=== PATIENT | female | born 1990 | race Caucasian/White ===

== ENCOUNTER 2017-12-04 08:39 | Outpatient (CLI) | payer MEDICAID, SELFPAY ==
[2017-12-04 09:34] LABS: Glucose,1 Hr (Glucola) 134 mg/dL (80-140)
== END 2017-12-04 08:59 ==
PROVIDERS: PCP Family Medicine; Visit Provider Advanced Practice Midwife
DX: Z34.93 Encounter for supervision of normal pregnancy, unspecified, third trimester (principal)
CPT/HCPCS: 36415; 82950

== ENCOUNTER 2017-12-11 21:58 | Observation (INO) | payer MEDICAID, SELFPAY ==
[2017-12-11] MEDS: Acetaminophen 500 MG TAB 1000 MG PO (22:53)
[2017-12-11] MEDS: Ondansetron O.D.T. 4 MG TABEF PO (22:54)
[2017-12-12] MEDS: hydrOXYzine PAMOATE 25 MG CAP 75 MG PO (00:14)
== END 2017-12-12 00:16 | disposition home or self-care (01) ==
PROVIDERS: Admitting Provider Advanced Practice Midwife; PCP Family Medicine; Visit Provider Advanced Practice Midwife
DX: O60.03 Preterm labor without delivery, third trimester (principal); Z3A.31 31 weeks gestation of pregnancy
CPT/HCPCS: 59025; G0378

== ENCOUNTER 2017-12-14 18:31 | Outpatient (CLI) | payer MEDICAID, SELFPAY | END 2017-12-14 18:51 | PROVIDERS: PCP Family Medicine; Visit Provider Advanced Practice Midwife | DX: O60.03 Preterm labor without delivery, third trimester (principal); Z3A.31 31 weeks gestation of pregnancy | CPT/HCPCS: 59025 ==

== ENCOUNTER 2018-01-03 11:48 | Outpatient (REF) | payer MEDICAID, SELFPAY | END 2018-01-03 12:08 | LOC: LBN 11:48 | PROVIDERS: PCP Family Medicine; Visit Provider Internal Medicine | DX: J06.9 Acute upper respiratory infection, unspecified (principal) | CPT/HCPCS: 87070 ==

== ENCOUNTER 2018-01-07 11:04 | Observation (INO) | payer MEDICAID, SELFPAY ==
[2018-01-07 13:00] LABS: Bilirubin Negative (Negative); Blood Negative (Negative); Clarity Sl Cloudy; Glucose Negative (Negative); Ketones Negative (Negative); Leukocyte Esterase Moderate (Negative); Nitrite Negative (Negative); Specific Gravity 1.015 (1.005-1.025); pH 7.5 (5-8)
[2018-01-07 13:09] LABS: Bacteria Many HPF (Negative); C & S Indicated? No/Sq. Contamination; Casts Negative LPF (Negative); Crystals Negative HPF (Negative); Epithelial Cells Many HPF (Negative); Mucus Moderate (Negative); RBC 0-2 (0-2); WBC 20-50 HPF (0-5)
== END 2018-01-07 12:20 | disposition home or self-care (01) ==
PROVIDERS: Admitting Provider Nurse Practitioner; PCP Family Medicine; Visit Provider Nurse Practitioner
DX: O60.03 Preterm labor without delivery, third trimester (principal); Z3A.35 35 weeks gestation of pregnancy
CPT/HCPCS: 81003; 81015; G0378

== ENCOUNTER 2018-01-16 22:03 | Observation (INO) | payer MEDICAID, SELFPAY ==
[2018-01-16 22:38] LABS: Bilirubin Negative (Negative); Blood Negative (Negative); Clarity Clear; Glucose Negative (Negative); Ketones Negative (Negative); Leukocyte Esterase Small (Negative); Nitrite Negative (Negative); Specific Gravity 1.015 (1.005-1.025); Urobilinogen 0.2 EU/dL (Up TO 0.2)
[2018-01-16 23:06] LABS: Tricyclic Antidepressants Negative (Negative)
[2018-01-16 23:10] LABS: ROM Plus Negative
[2018-01-16 23:11] LABS: *AMPHETAMINES SCREEN URINE Negative (Negative); *BARBITURATES SCREEN URINE Negative (Negative); *BENZODIAZEPINES SCREEN URINE Negative (Negative); Cannabinoids THC Negative (Negative); Cocaine Screen,Urine Negative (Negative); METHADONE URINE SCREEN Negative (Negative); OPIATES URINE SCREEN Negative (Negative)
[2018-01-16 23:35] LABS: RBC Negative (0-2); WBC 0-2 HPF (0-5)
[2018-01-16 23:36] LABS: Bacteria Negative HPF (Negative); C & S Indicated? Yes; Casts Negative LPF (Negative); Crystals Negative HPF (Negative); Epithelial Cells Few HPF (Negative); Mucus Negative (Negative)
== END 2018-01-16 23:23 | disposition home or self-care (01) ==
LOC: OBS 22:10
PROVIDERS: Admitting Provider Nurse Practitioner; PCP Family Medicine; Visit Provider Nurse Practitioner
DX: O47.03 False labor before 37 completed weeks of gestation, third trimester (principal); Z3A.36 36 weeks gestation of pregnancy; O99.333 Smoking (tobacco) complicating pregnancy, third trimester; F17.210 Nicotine dependence, cigarettes, uncomplicated; O99.283 Endocrine, nutritional and metabolic diseases complicating pregnancy, third trimester; E03.9 Hypothyroidism, unspecified; O99.343 Other mental disorders complicating pregnancy, third trimester; F32.9 Major depressive disorder, single episode, unspecified; F43.10 Post-traumatic stress disorder, unspecified; F79 Unspecified intellectual disabilities
CPT/HCPCS: 80307; 84112; 81003; 81015; 82731; 87081; 87086; G0378

== ENCOUNTER 2018-01-17 15:51 | Observation (INO) | payer MEDICAID, SELFPAY | END 2018-01-17 16:55 | disposition home or self-care (01) | PROVIDERS: Admitting Provider Nurse Practitioner; PCP Family Medicine; Visit Provider Nurse Practitioner | DX: O47.03 False labor before 37 completed weeks of gestation, third trimester (principal); Z3A.36 36 weeks gestation of pregnancy | CPT/HCPCS: G0378 ==

== ENCOUNTER 2018-01-22 22:23 | Observation (INO) | payer MEDICAID, SELFPAY ==
[2018-01-22] MEDS: Lactated Ringers 1,000 ML 1000 ML IV (23:50)
[2018-01-23] MEDS: Lactated Ringers 1,000 ML 1000 ML IV (00:56)
== END 2018-01-23 02:07 | disposition home or self-care (01) ==
PROVIDERS: Admitting Provider Advanced Practice Midwife; PCP Family Medicine; Visit Provider Advanced Practice Midwife
DX: O47.1 False labor at or after 37 completed weeks of gestation (principal); O26.813 Pregnancy related exhaustion and fatigue, third trimester; E86.0 Dehydration; Z3A.37 37 weeks gestation of pregnancy; O99.343 Other mental disorders complicating pregnancy, third trimester; F79 Unspecified intellectual disabilities; F43.10 Post-traumatic stress disorder, unspecified; F32.9 Major depressive disorder, single episode, unspecified; Z63.79 Other stressful life events affecting family and household
CPT/HCPCS: G0378

== ENCOUNTER 2018-01-24 15:25 | Outpatient (REF) | payer MEDICAID, SELFPAY | END 2018-01-24 15:45 | LOC: LBN 15:25 | PROVIDERS: PCP Family Medicine; Visit Provider Nurse Practitioner | DX: Z34.93 Encounter for supervision of normal pregnancy, unspecified, third trimester (principal); Z36.85 Encounter for antenatal screening for Streptococcus B | CPT/HCPCS: 87081 ==

== ENCOUNTER 2018-01-24 20:39 | Observation (INO) | payer MEDICAID, SELFPAY ==
[2018-01-24 21:37] LABS: ROM Plus Negative
== END 2018-01-24 21:52 | disposition home or self-care (01) ==
LOC: OBS 21:06
PROVIDERS: Admitting Provider Advanced Practice Midwife; PCP Family Medicine; Visit Provider Advanced Practice Midwife
DX: O47.1 False labor at or after 37 completed weeks of gestation (principal); Z3A.37 37 weeks gestation of pregnancy; O99.343 Other mental disorders complicating pregnancy, third trimester; F79 Unspecified intellectual disabilities; F32.9 Major depressive disorder, single episode, unspecified; F43.10 Post-traumatic stress disorder, unspecified
CPT/HCPCS: 84112; 87081; G0378

== ENCOUNTER 2018-01-25 16:53 | Observation (INO) | payer MEDICAID, SELFPAY ==
[2018-01-25] MEDS: Zolpidem 5 MG TAB 10 MG PO (18:51)
== END 2018-01-25 19:00 | disposition home or self-care (01) ==
PROVIDERS: Admitting Provider Nurse Practitioner; PCP Family Medicine; Visit Provider Nurse Practitioner
DX: O47.1 False labor at or after 37 completed weeks of gestation (principal); Z3A.37 37 weeks gestation of pregnancy
CPT/HCPCS: G0378

== ENCOUNTER 2018-01-30 09:25 | Outpatient (CLI) | payer MEDICAID, SELFPAY | END 2018-01-30 09:45 | PROVIDERS: PCP Family Medicine; Visit Provider Advanced Practice Midwife | DX: R69 Illness, unspecified (principal) ==

== ENCOUNTER 2018-02-02 23:35 | Inpatient (IN) | payer MEDICAID, SELFPAY ==
[2018-02-03 00:42] LABS: HGB 11.7 g/dL (12.0-15.5); Mean Corp. HGB Concentration 33.4 g/dL (32.0-36.0); Mean Corpuscular Hemoglobin 30.9 pg (27.0-33.0); Mean Corpuscular Volume 92.3 fL (80-95); Mean Platelet Volume 11.5 fL (8.0-11.0); Platelet Count 369 x1000/uL (130-400); RBC 3.79 m/cumm (4.00-5.20); RBC Distribution Width 14.1 % (11.7-14.6); White Blood Cell Count 17.09 k/cumm (4.4-10.8)
[2018-02-03] MEDS: Hamamelis Leaf/Glycerin 100 EACH BOX PR (12:03)
--- NOTE | 2018-02-03 14:48 | PDOC.CMPRO ---
Care Management Progress Note OB RN Milly requested CM support with information regarding decision making for Piedad's baby's care. CM called Maryam Chen Orly's Guardian who reported Orly would make decisions for her baby until discharge at which point DCF would verify paperwork was in order for adoption and Adoptive parents would accept parental rights for decision making for the baby. CM relayed the former information to TONIA Atkins RN.
[2018-02-03] MEDS: Acetaminophen 325 MG TAB 650 MG PO ×2 (16:08→21:05)
[2018-02-03] MEDS: Ibuprofen 600 MG TAB PO ×2 (16:08→21:06)
[2018-02-04 07:14] LABS: HCT 33.9 % (36.0-46.0); HGB 10.8 g/dL (12.0-15.5); Mean Corp. HGB Concentration 31.9 g/dL (32.0-36.0); Mean Corpuscular Hemoglobin 30.6 pg (27.0-33.0); Mean Platelet Volume 11.6 fL (8.0-11.0); Platelet Count 283 x1000/uL (130-400); RBC 3.53 m/cumm (4.00-5.20); RBC Distribution Width 14.8 % (11.7-14.6)
[2018-02-04] MEDS: Ibuprofen 600 MG TAB PO (07:29)
[2018-02-04] MEDS: Docusate Sodium 100 MG CAP PO (07:30)
[2018-02-04] MEDS: Acetaminophen 325 MG TAB 650 MG PO ×2 (07:30→12:15)
[2018-02-04] MEDS: Levothyroxine 75 MCG TAB PO (09:38)
[2018-02-04] MEDS: Lidocaine 1% Pres-Free 5 ML VIAL IJ (11:03)
[2018-02-04] MEDS: ETONOGESTREL 68 MG IMPLANT SC (11:20)
== END 2018-02-04 18:00 | disposition home or self-care (01) | DRG 807 ==
PROVIDERS: Admitting Provider Nurse Practitioner; PCP Family Medicine; Visit Provider Nurse Practitioner
DX: O70.1 Second degree perineal laceration during delivery (principal); Z37.0 Single live birth; O99.334 Smoking (tobacco) complicating childbirth; Z3A.38 38 weeks gestation of pregnancy; O99.284 Endocrine, nutritional and metabolic diseases complicating childbirth; O99.344 Other mental disorders complicating childbirth; E03.9 Hypothyroidism, unspecified; F32.9 Major depressive disorder, single episode, unspecified
CPT/HCPCS: 36415; 85027; 86850; 86900; 86901; G0378; J3490

== ENCOUNTER 2018-07-10 17:25 | Emergency (ER) | payer MEDICAID, SELFPAY ==
[2018-07-10 17:38] VITALS: BP 105/45; PULSE 98; RESP 22; O2SAT 98
[2018-07-10] MEDS: Acetaminophen 500 MG TAB 1000 MG PO (17:42)
--- NOTE | 2018-07-10 17:45 | DI.RAD_ITS ---
SYMPTOM/DIAGNOSIS: DROPPED BED ON FOOT, PAIN RIGHT FOOT: Three views were obtained. No fracture is seen.
[2018-07-10] MEDS: Lidocaine 5% Patch 1 PATCH TP (17:51)
--- NOTE | 2018-07-10 18:02 | DI.VRAD_ITS ---
EXAM: XR Right Foot Complete, 3 or more Views EXAM DATE/TIME: 07/10/2018 5:31 PM CLINICAL HISTORY: 28 years old, female; Patient HX: Patient sts dropped metal plate on right foot. 2 hours ago, pain entire foot. Patient also states previous FX 3 years ago. TECHNIQUE: Imaging protocol: XR Right foot. Views: 3 or more views. COMPARISON: CR RIGHT ANKLE COMPLETE 10/01/2015 10:51 PM FINDINGS: Bones/joints: Osseous anatomic alignment is well preserved. No acutely displaced fracture or dislocation. Joint spaces are well preserved. Soft tissues: No significant soft tissue swelling. IMPRESSION: Negative for acute skeletal pathology. Dictated and Authenticated by: Lucas Fuentes MD. Ordering:CLARITA Amor MD
--- NOTE | 2018-07-10 18:16 | ED.GENADUL_ITS ---
Discharge Plan Disposition Patient Disposition: HOME Condition: Good Discharge Details Chief Complaint: Orthopedic Clinical Impression: Acute foot pain, Contusion Primary Care Provider: Ronda Velez ED Provider: [facility] Home Meds and New Rx's Prescriptions: New acetaminophen [Mapap Extra Strength] 500 MG tablet 1,000 mg PO Q6H 5 Days Qty: 60 RF: 0 lidocaine [Lidoderm] 1 PATCH patch 1 patch Topical Q24H Qty: 4 RF: 0 ibuprofen [Motrin IB] 200 MG tablet 600 mg PO Q6H 5 Days Qty: 60 RF: 0 No Action Nexplanon 68 mg implant 1 implant SBD ONCE RF: 0 riboflavin (vitamin B2) 100 mg tablet 100 mg PO DAILY Qty: 90 RF: 2 levothyroxine 75 mcg tablet 75 mcg PO DAILY Qty: 90 RF: 3 trazodone 50 mg tablet 25 mg PO QHS PRN (Reason: insomnia) Qty: 30 RF: 2 lansoprazole 30 mg capsule,delayed release(DR/EC) 30 mg PO DAILY Qty: 30 RF: 2 sertraline 100 mg tablet 100 mg PO DAILY Qty: 30 RF: 3 loratadine [Claritin] 10 mg tablet 10 mg PO DAILY MDD 1 tablet Qty: 30 RF: 11 topiramate [Topamax] 50 mg tablet 50 mg PO QHS Qty: 30 RF: 3 Discharge Instructions Instructions: Contusion in Adults (ED) Additional Instructions: Please take the Tylenol, Motrin, and Lidoderm patches as directed. Please use the postop boot and the crutches until you are reassessed. If you notice any worsening of your symptoms, or any new symptoms such as vomiting, diarrhea, fever, chills, shortness of breath, chest pain, numbness, weakness, or fainting , please return immediately to the emergency department for reevaluation. Please follow up with your primary care provider as soon as possible for reassessment and reevaluation. As always, it was a pleasure participating in your medical care today. Referrals: Cash Higuera [facility] [Emergency Nurse] - Discharge Data Discharge Date/Time-TO BE ENTERED AT DEPARTURE: 07/10/18 18:24 Medical Decision Making This is a pleasant 28-year-old female who presents today with pain in her right foot over the midfoot region. She dropped the bed frame on it earlier today. Exam demonstrates minimal swelling over the midfoot region, no evidence of osseous deformity. Neurovascularly intact. No signs of significant fracture on exam. Toes, ankle and delarosa are otherwise unremarkable. X-ray was ordered and demonstrates no acute process or fracture. I suspect a notable sprain or bruise. The patient has been given NSAIDs here in the Lidoderm patch and has notable improvement of her symptoms. Postop surgical shoe was given as well as crutches, and the patient is tolerated this well. Recommend continue rest, ice, and NSAID therapy. Recommend close follow-up with PCP. Discussed red flags which to return. I have extensively reviewed the treatment plan and discharge instructions with the patient and their family. I have addressed all patient concerns at this time. The patient and family was made aware of what symptoms to monitor for that would warrant a return to the emergency department. Discussed the plan with the patient and family, they demonstrate verbal understanding and agreement with our assessment and plan at this time. TECHNIQUE: Imaging protocol: XR Right foot. Views: 3 or more views. COMPARISON: CR RIGHT ANKLE COMPLETE 10/01/2015 10:51 PM FINDINGS: Bones/joints: Osseous anatomic alignment is well preserved. No acutely displaced fracture or dislocation. Joint spaces are well preserved. Soft tissues: No significant soft tissue swelling. IMPRESSION: Negative for acute skeletal pathology. Thank you for allowing us to participate in the care of your patient. Dictated and Authenticated by: Lucas Bautista MD HPI General Date/Time Provider Initiated Documentation: 07/10/18 17:26 . HPI Narrative: This is a 28-year-old female who presents with a chief complaint of right foot pain. Earlier today she states that she dropped a bed frame on her right foot. It was over the midfoot region. She has had notable pain with ambulation and movement since then. He denies any numbness tingling or weakness. She denies any pain in her ankle, delarosa, or knee. She denies any other complaints or modifying factors. She does admit to a previous injury in this point in the distant past but no other acute process. Related Data Home Medications Medication Instructions Recorded Confirmed levothyroxine 75 mcg tablet 75 mcg PO DAILY #90 tab 04/12/18 06/20/18 etonogestrel 68 mg subdermal 1 implant SBD ONCE 05/01/18 06/20/18 implant riboflavin (vitamin B2) 100 mg 100 mg PO DAILY #90 tab 05/01/18 06/20/18 tablet trazodone 50 mg tablet 25 mg PO QHS PRN #30 tab 05/12/18 06/20/18 lansoprazole 30 mg capsule,delayed 30 mg PO DAILY #30 tab-cap 05/28/18 06/20/18 release sertraline 100 mg tablet 100 mg PO DAILY #30 tab 05/31/18 06/20/18 loratadine 10 mg tablet 10 mg PO DAILY #30 tab MDD 1 tablet 06/28/18 topiramate 50 mg tablet 50 mg PO QHS #30 tab 07/01/18 acetaminophen [Mapap Extra 1,000 mg PO Q6H 5 Days #60 tab 07/10/18 Strength] ibuprofen [Motrin Ib] 600 mg PO Q6H 5 Days #60 tab 07/10/18 lidocaine [Lidoderm] 1 patch TOPICAL Q24H #4 patch 07/10/18 Previous Rx's Medication Instructions Recorded levothyroxine 75 mcg tablet 75 mcg PO DAILY #90 tab 04/12/18 riboflavin (vitamin B2) 100 mg 100 mg PO DAILY #90 tab 05/01/18 tablet trazodone 50 mg tablet 25 mg PO QHS PRN #30 tab 05/12/18 lansoprazole 30 mg capsule,delayed 30 mg PO DAILY #30 tab-cap 05/28/18 release sertraline 100 mg tablet 100 mg PO DAILY #30 tab 05/31/18 loratadine 10 mg tablet 10 mg PO DAILY #30 tab MDD 1 tablet 06/28/18 topiramate 50 mg tablet 50 mg PO QHS #30 tab 07/01/18 acetaminophen [Mapap Extra 1,000 mg PO Q6H 5 Days #60 tab 07/10/18 Strength] ibuprofen [Motrin Ib] 600 mg PO Q6H 5 Days #60 tab 07/10/18 lidocaine [Lidoderm] 1 patch TOPICAL Q24H #4 patch 07/10/18 Allergies Allergy/AdvReac Type Severity Reaction Status Date / Time shellfish derived Allergy Severe Throat Unverified 06/20/18 08:43 closes up latex Allergy Intermediate Skin Rash Unverified 06/20/18 08:43 Penicillins Allergy Intermediate UTICARIA, Unverified 06/20/18 08:43 ROOM SPINS amoxicillin trihydrate Allergy Unknown unknown Unverified 06/20/18 08:43 [From Augmentin] metronidazole [From Flagyl] Allergy Unknown HIVES- RED Unverified 06/20/18 08:43 BLOTCHES sumatriptan succinate AdvReac Severe chest pain Unverified 06/20/18 08:43 [From Imitrex] tuna fish Allergy Unknown throat Uncoded 06/20/18 08:43 closes up Review of Systems Review of Systems All systems reviewed & are unremarkable except as noted in HPI and below PFSH Surgical History wisdom teeth removed. Family History Mother Depression Asthma Father Diabetes Asthma Brother Depression Asthma Grandfather No problems noted. Grandfather No problems noted. Grandmother No problems noted. Grandmother No problems noted. Daughter No problems noted. Social History Smoking/Tobacco Use Status: Current every day Tobacco Type: cigarettes Alcohol Intake: never Drug use: Never Substance use type: marijuana Household members: significant other Number of Children: 2 Do you feel safe in your relationship?: Yes History History 5 Para 1 Hx # Term Pregnancies 1 Multiple births 0 Hx # Pregnancies 0 Ectopic pregnancies 0 AB induced 0 Hx Number of Living Children 1 AB spontaneous 4 Past Pregnancies Del. Date GA/Weeks # Outcome Route Wgt Sex Labor Lgth Anesthesia Location Prov Complic 03/05/15 39 Successful vaginal 3.005 kg Female 10 hrs regional [facility] Exam Narrative Exam Narrative: 1.Const: Well-nourished, Well-developed, appearing stated age 2.Eyes: PERRL, no conjunctival injection, and symmetrical lids. 3.ENT: Atraumatic external nose and ears. Moist MM. Neck: Symmetric, trachea midline, No thyromegaly. 4.CVS: +S1/S2, No murmurs or gallops. Peripheral pulses 2+ and equal in all ex tremities. Brisk capillary refill in all extremities. 5.RESP: Unlabored respiratory effort. Clear to auscultation bilaterally. No wheezes rales or rhonchi 6.GI: Soft, Nontender/Nondistended, No hepatosplenomegaly. No guarding or rebound. 7.MSK: Normocephalic/Atraumatic, Extremities w/o deformity. No cyanosis or clubbing, patient has +5 out of 5 strength in the lower extremities in dorsifl exion and plantarflexion, knee flexion and extension, hip flexion and extension. There is +2 over 2 dorsalis pedis pulses bilaterally. There is normal sensation to the skin with light touch at the foot knee and hip. Mild reproducible tenderness over the midfoot region. No evidence of significant bruising. Normal swelling over the anterior midfoot region. No deformity. Capillary refill is brisk, dorsalis pedis and posterior tibial pulse +2 bilaterally. 8.Skin: Warm, Dry. No rashes or lesions. 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 Sensation grossly intact, no focal neurologic deficits. 10.Psych: (AAO) x3. Appropriate mood and affect
== END 2018-07-10 18:24 | disposition home or self-care (01) ==
PROVIDERS: Emergency Provider Student in an Organized Health Care Education/Training Program; PCP Family Medicine
DX: S90.31XA Contusion of right foot, initial encounter (principal); W22.8XXA Striking against or struck by other objects, initial encounter
CPT/HCPCS: 99283; 73630; E0114

== ENCOUNTER 2018-09-21 21:19 | Emergency (ER) | payer MEDICAID, SELFPAY ==
[2018-09-21 21:23] VITALS: BP 109/75; PULSE 90; RESP 16; TEMP 37.7; O2SAT 98
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
--- NOTE | 2018-09-21 21:31 | DI.RAD_ITS ---
SYMPTOM/DIAGNOSIS: S/P PUNCHED WALL, R/O ACUTE FRACTURE. RIGHT HAND: Three views. No acute fracture or dislocation is present.
--- NOTE | 2018-09-21 22:09 | DI.RAD_ITS ---
SYMPTOM/DIAGNOSIS: S/P PUNCHED A WALL, R/O ACUTE FRACTURE RIGHT WRIST: Three views. No acute fracture or dislocation is present.
[2018-09-21] MEDS: Ibuprofen 600 MG TAB PO (22:25)
--- NOTE | 2018-09-21 22:27 | DI.VRAD_ITS ---
EXAM: XR Right Wrist EXAM DATE/TIME: 09/21/2018 9:32 PM CLINICAL HISTORY: 28 years old, female; Other: Pain, punched wall TECHNIQUE: Imaging protocol: XR Right wrist. Views: 3 or more views. COMPARISON: No relevant prior studies available. FINDINGS: Bones/joints: Normal. Soft tissues: Normal. IMPRESSION: No acute findings. Dictated and Authenticated by: Germán John MD. Ordering:FLO Byrd MD
--- NOTE | 2018-09-21 22:28 | DI.VRAD_ITS ---
EXAM: XR Right Hand EXAM DATE/TIME: 09/21/2018 9:32 PM CLINICAL HISTORY: 28 years old, female; Other: Pain, punched wall TECHNIQUE: Imaging protocol: XR Right hand. Views: 3 or more views. COMPARISON: No relevant prior studies available. FINDINGS: Bones/joints: Normal. Soft tissues: Normal. IMPRESSION: No acute findings. Dictated and Authenticated by: Germán John MD. Ordering:FLO Byrd MD
== END 2018-09-21 23:10 | disposition home or self-care (01) ==
PROVIDERS: Emergency Provider Physician Assistant; PCP Nurse Practitioner Adult Health
DX: S60.211A Contusion of right wrist, initial encounter (principal); S60.221A Contusion of right hand, initial encounter; W22.09XA Striking against other stationary object, initial encounter
CPT/HCPCS: 99284; 73110; 73130; 99282; L3908

== ENCOUNTER 2018-11-11 21:30 | Emergency (ER) | payer MEDICAID, SELFPAY ==
[2018-11-11 21:34] VITALS: BP 114/69; PULSE 117; RESP 16; TEMP 36.5; O2SAT 96
[2018-11-11 22:28] VITALS: RESP 18
[2018-11-11] MEDS: Albuterol 2.5 MG/3 ML INH SOLN VIAL UPD (22:38)
[2018-11-11] MEDS: Acetaminophen 325 MG TAB 650 MG PO (22:38)
[2018-11-11] MEDS: Ibuprofen 600 MG TAB PO (22:38)
[2018-11-11 22:49] VITALS: O2SAT 99
[2018-11-11 22:50] VITALS: O2SAT 100
--- NOTE | 2018-11-11 22:55 | DI.RAD_ITS ---
EXAM: XR CHEST 2V PA LATERAL CLINICAL HISTORY: DIZZINESS, COUGH,FEVER TECHNIQUE: 2D digital imaging was performed. COMPARISON: Comparison is made with prior study of 03/31/2017. FINDINGS: LUNGS: Clear. No pleural abnormality seen. HEART: Normal. MEDIASTINUM: Normal. OTHER FINDINGS:Normal. IMPRESSION: No acute pulmonary findings.
--- NOTE | 2018-11-11 23:05 | DI.VRAD_ITS ---
EXAM: XR Chest, 2 Views EXAM DATE/TIME: 11/11/2018 10:21 PM CLINICAL HISTORY: 28 years old, female; Cough and fever; Cough with hemorrhage; Patient HX: Fever, cough dizzy TECHNIQUE: Imaging protocol: XR of the chest Views: 2 views. COMPARISON: CR CHEST 2 VIEWS PA,LAT 03/31/2017 10:51 PM FINDINGS: Lungs: Unremarkable. No consolidation. Pleural space: Unremarkable. No evidence of pneumothorax. Heart/Mediastinum: Unremarkable. Heart size within normal limits for technique. Bones/joints: Unremarkable. IMPRESSION: No acute findings. Dictated and Authenticated by: Adria Moreno MD. Ordering:VIANNEY Tan MD
--- NOTE | 2018-11-11 23:08 | W.ED.GENAD ---
Discharge Plan Disposition Patient Disposition: HOME Discharge Details Chief Complaint: GenMedical Clinical Impression: Asthma exacerbation, URI (upper respiratory infection), Smoker Primary Care Provider: Johana Vang ED Provider: Dominick Kenyon Home Meds and New Rx's Prescriptions: New albuterol sulfate 90 mcg/actuation HFA aerosol inhaler 2 puff IH Q6H PRN (Reason: shortness of breath or wheezing) Qty: 8.5 RF: 0 Continued Nexplanon 68 mg implant 1 implant SBD ONCE RF: 0 levothyroxine 75 mcg tablet 75 mcg PO DAILY Qty: 90 RF: 3 lansoprazole 30 mg capsule,delayed release(DR/EC) 30 mg PO DAILY Qty: 30 RF: 2 No Action prednisone 10 mg tablet See Rx Instructions PO DAILY Qty: 21 RF: 0 topiramate [Topamax] 50 mg tablet 50 mg PO QHS Qty: 30 RF: 3 Discharge Instructions Instructions: Asthma (ED), How to Stop Smoking (ED), Upper Respiratory Infection (ED) Additional Instructions: Please drink plenty of fluids to stay hydrated. Rest over the next few days. Use albuterol inhaler, 2 puffs inhaled every 4-6 hours as needed for shortness of breath or wheeze. Please take ibuprofen over the counter. Take 600mg by mouth every 6 hours as needed for fever/pain. Please stop smoking. Please contact your primary care physician to arrange follow-up. Return to the ER for any worsening or new concerning symptoms. Referrals: Johana Vang, GEOPHYSICAL ENGINEER [Primary Care Provider] - Discharge Data Discharge Date/Time-TO BE ENTERED AT DEPARTURE: 11/11/18 23:23 Medical Decision Making 23:00 --28-year-old female smoker with asthma here with sinus congestion and cough over the past 2 to 3 days. Patient mildly tachycardic on arrival. Patient has wheeze bilateral lower lungs. Patient saturating well in no respiratory distress. Patient was given Tylenol and ibuprofen. She was given albuterol neb for her wheeze. chest x-ray reviewed and interpreted by radiology: No acute findings Patient was reassessed and wheeze resolved after neb treatment. Heart rate improved. Suspect viral URI with mild asthma exacerbation. Patient was encouraged to maintain adequate hydration and take NSAIDs for fever and discomfort. She was encouraged to follow-up with her primary care physician should symptoms not improve over the next few days. Smoking cessation counseling was provided. I spent greater than 5 minutes discussing smoking cessation with the patient. She seems minimally motivated to stop smoking. Usual and customary discharge instructions were provided. HPI General Mode of arrival: ambulatory. Date/Time Provider Initiated Documentation: 11/11/18 21:47. Limitations to Documentation: no limitations. Information obtained by: patient. HPI Narrative: 28-year-old female smoker with asthma here with chief complaint of cough. She states that she has had cough over the past 2 to 3 days. Cough is moderate with no modifiers. She has associated sinus congestion and sinus discomfort. Cough is intermittently productive. No associated fever. Generally not feeling well. Patient does have some associated shortness of breath with wheezing. Related Data Home Medications Medication Instructions Recorded Confirmed levothyroxine 75 mcg tablet 75 mcg PO DAILY #90 tab 04/12/18 11/13/18 etonogestrel 68 mg subdermal 1 implant SBD ONCE 05/01/18 11/13/18 implant lansoprazole 30 mg capsule,delayed 30 mg PO DAILY #30 tab-cap 05/28/18 11/13/18 release albuterol sulfate 2 puff IH Q6H PRN #8.5 gm 11/11/18 11/13/18 prednisone 10 mg tablet See Rx Instructions PO DAILY #21 11/13/18 11/13/18 tab-cap topiramate 50 mg tablet 50 mg PO QHS #30 tab 11/13/18 Previous Rx's Medication Instructions Recorded levothyroxine 75 mcg tablet 75 mcg PO DAILY #90 tab 04/12/18 lansoprazole 30 mg capsule,delayed 30 mg PO DAILY #30 tab-cap 05/28/18 release albuterol sulfate 2 puff IH Q6H PRN #8.5 gm 11/11/18 prednisone 10 mg tablet See Rx Instructions PO DAILY #21 11/13/18 tab-cap topiramate 50 mg tablet 50 mg PO QHS #30 tab 11/13/18 Allergies Allergy/AdvReac Type Severity Reaction Status Date / Time shellfish derived Allergy Severe Throat Unverified 11/11/18 21:40 closes up latex Allergy Intermediate Skin Rash Unverified 11/13/18 13:15 Penicillins Allergy Intermediate UTICARIA, Unverified 11/13/18 13:15 ROOM SPINS amoxicillin trihydrate Allergy Unknown unknown Unverified 11/13/18 13:15 [From Augmentin] metronidazole [From Flagyl] Allergy Unknown HIVES- RED Unverified 11/13/18 13:15 BLOTCHES sumatriptan succinate AdvReac Severe chest pain Unverified 11/13/18 13:15 [From Imitrex] tuna fish Allergy Unknown throat Uncoded 11/13/18 13:15 closes up B-2 Allergy Uncoded 11/13/18 13:15 General Stated Complaint: GenMedical HUY: 4 Review of Systems Review of Systems ROS Unobtainable: All systems reviewed & are unremarkable except as noted in HPI and below ENT Ears, Nose, Mouth, and Throat: Reports facial pain Respiratory Respiratory: Reports cough PFSH Medical History ADD (attention deficit disorder) (Chronic) Cognitive developmental delay GERD (gastroesophageal reflux disease) (Chronic) Hypothyroid (Chronic) Infestation by Sarcoptes scabiei (Inactive 07/15/14) Migraine (Chronic) Posttraumatic stress disorder (Chronic 08/18/11) Surgical History History of wisdom tooth extraction (Acute) Family History Mother Depression Asthma Father Diabetes Asthma Brother Depression Asthma Grandfather No problems noted. Grandfather No problems noted. Grandmother No problems noted. Grandmother No problems noted. Daughter No problems noted. Social History Smoking/Tobacco Use Status: Current every day Tobacco Type: cigarettes Alcohol Intake: never Drug use: Daily Substance use type: marijuana Details: No IV Drug Use Adopted: No Caregiver/Support person: No Foster care: No Household members: significant other Housing: apartment Number of Children: 2 Do you need help understanding health information?: Always Sexually active: Yes Do you think of yourself as: straight/heterosexual Current gender identity: female Do you feel safe at home: Yes Do you feel safe in your relationship?: Yes History History 5 Para 2 Hx # Term Pregnancies 1 Multiple births 0 Hx # Pregnancies 0 Ectopic pregnancies 0 AB induced 0 Hx Number of Living Children 1 AB spontaneous 4 Past Pregnancies Del. Date GA/Weeks # Outcome Route Wgt Sex Labor Lgth Anesthesia Location Prov [facility] 03/05/15 39 Successful vaginal 3.005 kg Female 10 hrs regional [facility] Exam Const General: cooperative and no acute distress [facility] General nose exam: nares normal Face and sinus: no erythema, no edema and sinus tenderness maxillary Mouth: moist mucous membranes Throat: posterior oropharynx normal Eyes Conjunctivae: normal conjunctivae Sclera: normal sclerae Neck Neck: trachea midline and supple Resp Effort & Inspection: able to speak in complete sentences Auscultation: no rales, no rhonchi and wheezes expiratory wheezes Cardio Jugular venous pressure: no JVD Rate: tachycardic Rhythm: regular rhythm Heart Sounds: S1 normal, S2 normal, no gallops, no murmurs and no rubs GI Palpation: soft, not firm, no guarding, no masses, not rigid and nontender Skin General skin exam: no rashes or lesions noted Neuro General: alert, awake and tone normal Extrem General: no edema Course Vital Signs Vital signs: Vital Signs Temperature 36.5 C 11/11/18 21:34 Pulse 117 H 11/11/18 21:34 Respiratory Rate 16 11/11/18 21:34 Blood Pressure 114/69 11/11/18 21:34 Pulse Oximetry 96 11/11/18 21:34 Temperature 36.5 C 11/11/18 21:34 Temperature Source Temporal Artery Scan 11/11/18 21:34 Pulse 117 H 11/11/18 21:34 Respiratory Rate 18 11/11/18 22:28 Respiratory Effort 11/11/18 22:28 Respiratory Depth Normal 11/11/18 22:28 Respiratory Pattern Normal 11/11/18 22:28 Blood Pressure 114/69 11/11/18 21:34 Pulse Oximetry 96 11/11/18 21:34 Oxygen Delivery Method Room Air 11/11/18 21:34 Oxygen Flow Rate 0 11/11/18 21:34 Pain Level 6 11/11/18 21:34 Lab/Test Results Lab/Test Results: POC- Test(urine) Negative
[2018-11-11 23:22] VITALS: BP 114/69; PULSE 106; RESP 18; O2SAT 100
== END 2018-11-11 23:23 | disposition home or self-care (01) ==
PROVIDERS: Emergency Provider Student in an Organized Health Care Education/Training Program; PCP Nurse Practitioner Adult Health
DX: J45.901 Unspecified asthma with (acute) exacerbation (principal); J06.9 Acute upper respiratory infection, unspecified; F17.210 Nicotine dependence, cigarettes, uncomplicated
CPT/HCPCS: 81025; 94640; 99283; 99406; 71046; J7613

== ENCOUNTER 2018-12-12 20:07 | Emergency (ER) | payer MEDICAID, SELFPAY ==
[2018-12-12 20:11] VITALS: BP 127/64; PULSE 101; RESP 16; TEMP 36.6; O2SAT 97
[2018-12-12] MEDS: diazePAM 5 MG TAB PO (21:13)
--- NOTE | 2018-12-12 21:37 | DI.RAD_ITS ---
EXAM: XR LUMBAR SPINE COMPLETE INDICATION: pain. COMPARISON: No exams were available for comparison TECHNIQUE: 2D digital imaging was performed. FINDINGS: There is no evidence of fracture, spondylolysis or spondylolisthesis. The disc spaces are well main tained. There is no significant scoliosis. The SI joints are grossly intact. IMPRESSION: Negative lumbar spine.
[2018-12-12 21:40] LABS: Bilirubin Negative (Negative); Blood Negative (Negative); Clarity Clear (Clear); Glucose Negative (Negative); Ketones 80 mg/dL (Negative); Leukocyte Esterase Negative (Negative); Nitrite Negative (Negative); Specific Gravity >= 1.030 (1.005-1.025); Urobilinogen 0.2 EU/dL (Up TO 0.2); pH 5.5 (5-8)
[2018-12-12 21:42] LABS: ALT 10 U/L (14-59); AST 7 U/L (15-37); Albumin 3.8 g/dL (3.4-5.0); Alkaline Phosphatase 71 U/L (46-116); Anion Gap 12.6 mmol/L (3-11); BUN 7 mg/dL (7-18); Bilirubin, Total 0.3 mg/dL (0.2-1.0); CO2 22.4 mmol/L (21.0-32.0); CREATININE 0.73 mg/dL (0.55-1.02); Calcium 8.8 mg/dL (8.5-10.1); Chloride 106 mmol/L (98-107); Glucose 86 mg/dL (70-100); Potassium 3.7 mmol/L (3.5-5.1); Sodium 141 mmol/L (136-145); Total Protein 7.7 g/dL (6.4-8.2)
--- NOTE | 2018-12-12 21:50 | DI.VRAD_ITS ---
PROCEDURE INFORMATION: Exam: XR Lumbosacral Spine, 4 or 5 Views Exam date and time: 12/12/2018 8:53 PM Clinical history: 28 years old, female; Low back pain TECHNIQUE: Imaging protocol: XR of the lumbosacral spine, 4 or 5 views. COMPARISON: No relevant prior studies available. FINDINGS: Vertebrae: There are 5 nonrib-bearing lumbar type vertebra. No acute findings. Vertebral body heights are preserved. No spondylolisthesis or spondylolysis. There is borderline intervertebral disc height loss at L5-S1, intervertebral disc heights are otherwise preserved. Soft tissues: No focal abnormality, IMPRESSION: No acute finding. No significant hypertrophic degenerative changes. Dictated and Authenticated by: Fran Gutierrez MD. Ordering:LESTER Velez MD
[2018-12-12 21:58] LABS: Abs Immature Grans 0.04 k/cumm (0.0-0.09); Absolute Lymphocyte Count 3.26 k/cumm (1.2-3.4); Basophils % 0.2; Eosinophils % 0.2; HCT 39.1 % (36.0-46.0); HGB 12.7 g/dL (12.0-15.5); Immature Grans % 0.3; Mean Corp. HGB Concentration 32.5 g/dL (32.0-36.0); Mean Corpuscular Hemoglobin 29.2 pg (27.0-33.0); Mean Corpuscular Volume 89.9 fL (80-95); Mean Platelet Volume 11.5 fL (8.0-11.0); Monocytes % 3.8; Neutrophils % 69.5; Platelet Count 446 x1000/uL (130-400); RBC 4.35 m/cumm (4.00-5.20); RBC Distribution Width 14.9 % (11.7-14.6); White Blood Cell Count 12.52 k/cumm (4.4-10.8)
[2018-12-12 21:59] LABS: Absolute Basophil Count 0.03 k/cumm (0.0-0.2); Absolute Eosinophil Count 0.03 k/cumm (0.0-0.7); Absolute Monocyte Count 0.48 k/cumm (0.11-0.7)
[2018-12-12 22:07] VITALS: BP 98/55; PULSE 75; RESP 14; TEMP 36.6; O2SAT 98
--- NOTE | 2018-12-12 22:28 | W.ED.GENAD ---
Discharge Plan Disposition Patient Disposition: AGAINST MEDICAL ADVICE Condition: Good Discharge Details Chief Complaint: Nk/Back Pain Clinical Impression: Back pain Primary Care Provider: Johana Vang ED Provider: Rosie Canales Home Meds and New Rx's Prescriptions: No Action Nexplanon 68 mg implant 1 implant SBD ONCE RF: 0 prednisone 10 mg tablet See Rx Instructions PO DAILY Qty: 21 RF: 0 levothyroxine 75 mcg tablet 75 mcg PO DAILY Qty: 90 RF: 3 lansoprazole 30 mg capsule,delayed release(DR/EC) 30 mg PO DAILY Qty: 30 RF: 2 topiramate [Topamax] 50 mg tablet 50 mg PO QHS Qty: 30 RF: 3 albuterol sulfate 90 mcg/actuation HFA aerosol inhaler 2 puff IH Q6H PRN (Reason: shortness of breath or wheezing) Qty: 8.5 RF: 0 Discharge Instructions Instructions: Back Pain (ED) Additional Instructions: You declined to stay in the hospital at this time for more advanced imaging studies. You are aware of the risk involved and signing out AGAINST MEDICAL ADVICE. Rest activities as tolerated. Use Motrin or Tylenol for soreness if needed. Return to the emergency room for further evaluation when convenient. Follow-up promptly with your primary care doctor if you do not choose to return to the emergency room. Medical Decision Making Is a 28-year-old woman who presents to the ER for 6 days of abdominal pain. She did have a fall a week prior which did not result in immediate pain. Patient reports a gradual worsening of pain over the last 5 to 6 days. Patient is concerned as his pain is difficult to tolerate. No improvement with [id number] aspirin or Tylenol. Patient has tried no other modalities to relieve pain. Patient reports pain in the lower back which radiates into bilateral legs to the feet. Patient reports an episode of associated paresthesia complete numbness from the pelvis to bilateral legs while laying on her abdomen sleeping at night she awoke with significant numbness. On exam in the emergency room patient has no obvious neurosurgical emergency symptoms or signs. She has intact DTRs, no foot drop. She is ambulating independently. X-ray evaluation of the spine reveals no acute findings or significant degenerative changes. There is mild intervertebral disc height loss noted at L5-S1. Patient does admit to previous disc injury several years previous. Patient's labs are unremarkable for significant abnormality at this time. Given patient's reported bilateral lower extremity numbness which is somewhat concerning for cauda equina syndrome although her neurologic exam is intact at this time I do feel it is most appropriate to recommend MRI for this patient. I recommended she stay in the hospital overnight until MRI in the morning as I do not feel she requires transfer to [facility] at this time given her current neurologic exam. Patient declines further imaging in the hospital and admission at this time. Patient would prefer to sign out AMA. I had a discussion with the patient about my diagnostic/treatment plan. Patient declines plan and wishes to leave against medical advise. I reiterated my concerns to the patient and explained the risks of leaving prior to completion of workup and treatment. I specifically emphasized the possibility of life-threatening or lifestyle modifying disease that would no be appropriately treated if they leave. Patient verbalized understanding of my concerns and the potential for life threatening or lifestyle modifying disease. Patient has capacity to make informed decision. I again explained my concerns and urged the patient to stay for treatment as outlined. Patient continued to refuse. I then discussed potential less ideal alternatives to diagnostic/treatment plan as outlined and patiint refused. I recommended that the patient followup with primary care physician JUANY or return to the Emergency Department at any timer for further treatment. HPI General Date/Time Provider Initiated Documentation: 12/12/18 20:32. HPI Narrative: This is a 28-year-old patient presents the emergency room for complaints of back pain for the last 5 to 6 days. Patient reports she did have a fall approximately 1 1/2 weeks ago she slipped and fell landing on her buttocks. Patient reports no immediate pain after her fall for approximately 5 days then she had onset of back pain. Patient reports significant back pain which is worsened over the last 5 to 6 days. Patient reports radiation into her bilateral legs to her hips thighs and all the way to her feet. Patient reports she feels as if her legs become weak when standing and are going to give out. Patient patient denies abdominal pain associated. Denies urinary urgency or frequency or dysuria. Patient reports history of back pain historically. This seems different. Patient does admit to numbness from the pelvis down to the feet when laying on her abdomen. Patient reports when sleeping on her back she is extremely uncomfortable and when sleeping on her abdomen at night she awoke to numbness from the pelvis down to bilateral legs. She reports loss of sensation in her legs and required her boyfriend to flip over in bed. Denies any incontinence of urine or stool associated. Patient ambulated into the emergency room today has been able to ambulate back and forth to the bathroom. Related Data Home Medications Medication Instructions Recorded Confirmed levothyroxine 75 mcg tablet 75 mcg PO DAILY #90 tab 04/12/18 12/12/18 etonogestrel 68 mg subdermal 1 implant SBD ONCE 05/01/18 12/12/18 implant lansoprazole 30 mg capsule,delayed 30 mg PO DAILY #30 tab-cap 05/28/18 12/12/18 release albuterol sulfate 2 puff IH Q6H PRN #8.5 gm 11/11/18 12/12/18 prednisone 10 mg tablet See Rx Instructions PO DAILY #21 11/13/18 12/12/18 tab-cap topiramate 50 mg tablet 50 mg PO QHS #30 tab 11/13/18 12/12/18 Previous Rx's Medication Instructions Recorded levothyroxine 75 mcg tablet 75 mcg PO DAILY #90 tab 04/12/18 lansoprazole 30 mg capsule,delayed 30 mg PO DAILY #30 tab-cap 05/28/18 release albuterol sulfate 2 puff IH Q6H PRN #8.5 gm 11/11/18 prednisone 10 mg tablet See Rx Instructions PO DAILY #21 11/13/18 tab-cap topiramate 50 mg tablet 50 mg PO QHS #30 tab 11/13/18 Allergies Allergy/AdvReac Type Severity Reaction Status Date / Time shellfish derived Allergy Severe Throat Unverified 11/11/18 21:40 closes up latex Allergy Intermediate Skin Rash Unverified 11/13/18 13:15 Penicillins Allergy Intermediate UTICARIA, Unverified 11/13/18 13:15 ROOM SPINS amoxicillin trihydrate Allergy Unknown unknown Unverified 11/13/18 13:15 [From Augmentin] metronidazole [From Flagyl] Allergy Unknown HIVES- RED Unverified 11/13/18 13:15 BLOTCHES sumatriptan succinate AdvReac Severe chest pain Unverified 11/13/18 13:15 [From Imitrex] tuna fish Allergy Unknown throat Uncoded 11/13/18 13:15 closes up B-2 Allergy Uncoded 11/13/18 13:15 General Stated Complaint: Nk/Back Pain HUY: 3 Review of Systems Review of Systems ROS Unobtainable: All systems reviewed & are unremarkable except as noted in HPI and below Constitutional Constitutional: Denies chills, Denies fatigue, Denies fever(s) and Denies headache(s) ENT Ears, Nose, Mouth, and Throat: Denies headache(s) and Denies neck pain Gastrointestinal Gastrointestinal: Denies abdominal pain, Reports nausea and Denies vomiting Genitourinary Genitourinary: Denies urinary frequency, Denies dysuria, Denies urinary incontinence and Denies urinary urgency Musculoskeletal Musculoskeletal: Reports back pain and Denies neck pain Neurologic Neurologic: Denies headache(s) Endocrine Endocrine: Denies fatigue FOR[facility]LY [facility], [facility] Medical History ADD (attention deficit disorder) (Chronic) Cognitive developmental delay GERD (gastroesophageal reflux disease) (Chronic) Hypothyroid (Chronic) Infestation by Sarcoptes scabiei (Inactive 07/15/14) Migraine (Chronic) Posttraumatic stress disorder (Chronic 08/18/11) Social History Smoking/Tobacco Use Status: Current every day Tobacco Type: cigarettes Alcohol Intake: never Drug use: Daily Substance use type: marijuana Details: No IV Drug Use Adopted: No Caregiver/Support person: No Foster care: No Household members: significant other Housing: apartment Number of Children: 2 Do you need help understanding health information?: Always Sexually active: Yes Do you think of yourself as: straight/heterosexual Current gender identity: female Do you feel safe at home: Yes Do you feel safe in your relationship?: Yes History History 5 Para 2 Hx # Term Pregnancies 1 Multiple births 0 Hx # Pregnancies 0 Ectopic pregnancies 0 AB induced 0 Hx Number of Living Children 1 AB spontaneous 4 Past Pregnancies Del. Date GA/Weeks # Outcome Route Wgt Sex Labor Lgth Anesthesia Location Prov [facility] 03/05/15 39 Successful vaginal 3.005 kg Female 10 hrs regional [facility] Exam Narrative Exam Narrative: CONST: Healthy appearing patient, in no acute distress. Well hydrated. Alert and alert. NECK: Normal visual inspection. FROM. Trachea midline. No Midline tenderness. MUSCULOSKELETAL: Normal Gait. FROM of all extremities. Straight leg raise intact. Pain with straight leg raise on the right at 90 degrees. DTRs intact and equal bilaterally. No foot drop bilaterally. Back; moderate tenderness of the L-spine with palpation. No obvious step-offs. No obvious skin changes overlying the spine. No cervical or thoracic tenderness with palpation. No CVA tenderness bilaterally SKIN: Normal. Dry. No rashes. NEURO: Alert and awake. Speech clear. PSYCH: Normal affect. Cooperative. Course Vital Signs Vital signs: Vital Signs Temperature 36.6 C 12/12/18 20:11 Pulse 101 H 12/12/18 20:11 Respiratory Rate 16 12/12/18 20:11 Blood Pressure 127/64 12/12/18 20:11 Pulse Oximetry 97 12/12/18 20:11 Temperature 36.6 C 12/12/18 22:07 Temperature Source Skin 12/12/18 22:07 Pulse 75 12/12/18 22:07 Respiratory Rate 14 12/12/18 22:07 Respiratory Effort 12/12/18 20:17 Blood Pressure 98/55 L 12/12/18 22:07 Blood Pressure Position Sitting 12/12/18 20:11 Pulse Oximetry 98 12/12/18 22:07 Oxygen Delivery Method Room Air 12/12/18 22:07 Oxygen Flow Rate 0 12/12/18 22:07 Pain Level 0 12/12/18 22:07 Comment 12/12/18 20:11 Lab/Test Results Lab/Test Results: Laboratory Tests Range/Units 12/12/18 12/12/18 12/12/18 21:07 21:13 21:13 WBC (4.4-10.8) k/cumm 12.52 H RBC (4.00-5.20) m/cumm 4.35 Hgb (12.0-15.5) g/dL 12.7 Hct (36.0-46.0) % 39.1 MCV (80-95) fL 89.9 MCH (27.0-33.0) pg 29.2 MCHC (32.0-36.0) g/dL 32.5 RDW (11.7-14.6) % 14.9 H Plt Count (130-400) x1000/uL 446 H MPV (8.0-11.0) fL 11.5 H Immature Gran % 0.3 Neutrophils % 69.5 Lymphocytes % 26.0 Monocytes % 3.8 Eosinophils % 0.2 Basophils % 0.2 Absolute Neutrophils (1.2-6.7) k/cumm 8.70 H Absolute Lymphocytes (1.2-3.4) k/cumm 3.26 Absolute Monocytes (0.11-0.7) k/cumm 0.48 Absolute Eosinophils (0.0-0.7) k/cumm 0.03 Absolute Basophils (0.0-0.2) k/cumm 0.03 Sodium (136-145) mmol/L 141 Potassium (3.5-5.1) mmol/L 3.7 Chloride (98-107) mmol/L 106 Carbon Dioxide (21.0-32.0) mmol/L 22.4 Anion Gap (3-11) mmol/L 12.6 H BUN (7-18) mg/dL 7 Creatinine (0.55-1.02) mg/dL 0.73 Estimated GFR/1.73 m2 (mL/min/1.73m2) >= 60.00 Glucose (70-100) mg/dL 86 Calcium (8.5-10.1) mg/dL 8.8 Total Bilirubin (0.2-1.0) mg/dL 0.3 AST (15-37) U/L 7 L ALT (14-59) U/L 10 L Alkaline Phosphatase (46-116) U/L 71 C-Reactive Protein (0.0-0.3) mg/dL 1.40 H Total Protein (6.4-8.2) g/dL 7.7 Albumin (3.4-5.0) g/dL 3.8 Urine Color (Yellow) Yellow Urine Clarity (Clear) Clear Urine pH (5-8) 5.5 Ur Specific Mcdonald (1.005-1.025) >= 1.030 H Urine Protein (Negative) mg/dL Negative Urine Ketones (Negative) mg/dL 80 H Urine Blood (Negative) Negative Urine Nitrite (Negative) Negative Urine Bilirubin (Negative) Negative Urine Urobilinogen (Up TO 0.2) EU/dL 0.2 Ur Leukocyte Esterase (Negative) Negative Urine Glucose (Negative) mg/dL Negative POC- Test(urine) Negative
[2018-12-12 22:35] VITALS: BP 98/55; PULSE 75; RESP 14; TEMP 36.6; O2SAT 98
[2018-12-12 22:40] LABS: ESR 23 mm/hr (0-20)
== END 2018-12-12 23:30 | disposition left against medical advice (07) ==
PROVIDERS: Emergency Provider Physician Assistant; PCP Nurse Practitioner Adult Health
DX: M54.5 Low back pain (principal); R20.0 Anesthesia of skin; Z53.29 Procedure and treatment not carried out because of patient's decision for other reasons
CPT/HCPCS: 36415; 80053; 81025; 85652; 99283; 72110; 81003; 85025; 86140

== ENCOUNTER 2018-12-13 12:04 | Emergency (ER) | payer MEDICAID, SELFPAY ==
[2018-12-13 12:05] VITALS: BP 116/64; PULSE 96; RESP 22; TEMP 36.8; O2SAT 97
--- NOTE | 2018-12-13 12:36 | ED.GENADUL_ITS ---
Discharge Plan Disposition Patient Disposition: HOME Condition: Improving Discharge Details Chief Complaint: Nk/Back Pain Clinical Impression: Acute low back pain due to trauma Primary Care Provider: Johana Vang ED Provider: Mele Melendez Home Meds and New Rx's Prescriptions: New cyclobenzaprine 10 mg tablet 10 mg PO TID PRN (Reason: muscle spasm) Qty: 14 RF: 0 Continued Nexplanon 68 mg implant 1 implant SBD ONCE RF: 0 levothyroxine 75 mcg tablet 75 mcg PO DAILY Qty: 90 RF: 3 lansoprazole 30 mg capsule,delayed release(DR/EC) 30 mg PO DAILY Qty: 30 RF: 2 topiramate [Topamax] 50 mg tablet 50 mg PO QHS Qty: 30 RF: 3 albuterol sulfate 90 mcg/actuation HFA aerosol inhaler 2 puff IH Q6H PRN (Reason: shortness of breath or wheezing) Qty: 8.5 RF: 0 Discontinued prednisone 10 mg tablet See Rx Instructions PO DAILY Qty: 21 RF: 0 Discharge Instructions Instructions: Acute Low Back Pain (ED) Additional Instructions: You may continue to take your normally prescribed medication on top of the muscle relaxer as prescribed. For [id number] medication you should take 1000 mg of acetaminophen every 6 hours as needed for pain. Please follow-up with your primary care provider for reassessment and feel free to return to the emergency department as needed. Referrals: Johana Vang, CENTRAL PROCESSING TECHNICIAN [Primary Care Provider] - 1 week Medical Decision Making Patient presenting to the emergency department via EMS for chief complaint of back pain. Patient reports significant fall landing directly on tailbone at work approximately 1 week ago and then 5 days after injury she noted to have significant increase in lower abdominal pain. Patient does state history of scoliosis and back problems. Patient reports reason she called EMS today was due to having a severe significant increase in pain and discomfort and legs giving out and turning numb patient denies any numbness tingling saddle anesthesia, fever chills, change in bowel or bladder function at this time. Patient was seen yesterday in the emergency department and offered admission for consideration of MRI given at that time also reported neurological symptoms of legs not working and giving out. Patient refused admission at that time. She does state that she has been taking ibuprofen with possible allergic reaction given a rash noted on the right arm but otherwise has stopped taking any other bwlz-swj-zkczlbg medications because they do not work physical exam shows diffuse lumbar and sacral tenderness without point tenderness, diffuse paraspinal tenderness again without point tenderness, normal lower extremity reflexes and sensation, post void residual shows 100 mL's and bladder. At this time patient has no inability to move lower extremities, strength is appropriate, sensation is fully intact. Given that patient did have plain film imaging performed yesterday with no acute findings and continued symptoms causing fall today I do think that MRI is needed to exclude cauda equina but I do feel this is lower on the differential compared to continued back pain without appropriate pain control. Pending results patient given Flexeril, IV acetaminophen, and Ativan for MRI due to report of claustrophobia. Urinalysis reviewed and patient is not , no hematuria but increase of bilirubin and ketones are noted. Review of previous notes does show that patient was on steroid taper at the end of October for bronchitis type symptoms. Speaking with radiologist in regards to MRI imaging she reports no findings noted within the lumbar spine there was some widening of the visible thoracic spine but no acute findings. Patient reassessed and stated some improvement of pain and discomfort after IV Tylenol and Flexeril. Patient continues to have no thoracic spinal tenderness and all seems lower. Patient placed upon Flexeril outpatient and instructed on dxyz-vra-pzxqaft acetaminophen use. Patient placed upon follow-up list with primary care due to 2 visits to the emergency department for her back pain but otherwise I feel that patient is able to be safely discharged. Return precautions discussed. After discussion of diagnosis and plan of care patient has no further needs, questions, or concerns and states clear understanding to return to the emergency department for any worsening symptoms. HPI General Mode of arrival: ambulatory . Date/Time Provider Initiated Documentation: 12/13/18 12:06 . Limitations to Documentation: no limitations . Information obtained by: patient and RN notes reviewed . History of Present Illness 28 year old F presents to the emergency department with the chief complaint of back pain, injury, described as severe, with intensity rated at 10. Quality is described as sharp, and is localized to the back. Patient started experiencing this week(s) (1) and it has been constant. Patient did receive the following treatments prior to arrival, NSAID Related Data Home Medications Medication Instructions Recorded Confirmed levothyroxine 75 mcg tablet 75 mcg PO DAILY #90 tab 04/12/18 12/13/18 etonogestrel 68 mg subdermal 1 implant SBD ONCE 05/01/18 12/13/18 implant lansoprazole 30 mg capsule,delayed 30 mg PO DAILY #30 tab-cap 05/28/18 12/13/18 release albuterol sulfate 2 puff IH Q6H PRN #8.5 gm 11/11/18 12/13/18 topiramate 50 mg tablet 50 mg PO QHS #30 tab 11/13/18 12/13/18 cyclobenzaprine 10 mg PO TID PRN #14 tab 12/13/18 Previous Rx's Medication Instructions Recorded levothyroxine 75 mcg tablet 75 mcg PO DAILY #90 tab 04/12/18 lansoprazole 30 mg capsule,delayed 30 mg PO DAILY #30 tab-cap 05/28/18 release albuterol sulfate 2 puff IH Q6H PRN #8.5 gm 11/11/18 topiramate 50 mg tablet 50 mg PO QHS #30 tab 11/13/18 cyclobenzaprine 10 mg PO TID PRN #14 tab 12/13/18 Allergies Allergy/AdvReac Type Severity Reaction Status Date / Time shellfish derived Allergy Severe Throat Unverified 12/13/18 12:11 closes up ibuprofen Allergy Intermediate Skin Rash Unverified 12/13/18 13:06 latex Allergy Intermediate Skin Rash Unverified 12/13/18 12:11 Penicillins Allergy Intermediate UTICARIA, Unverified 12/13/18 12:11 ROOM SPINS amoxicillin trihydrate Allergy Unknown unknown Unverified 12/13/18 12:11 [From Augmentin] metronidazole [From Flagyl] Allergy Unknown HIVES- RED Unverified 12/13/18 12:11 BLOTCHES sumatriptan succinate AdvReac Severe chest pain Unverified 12/13/18 12:11 [From Imitrex] tuna fish Allergy Unknown throat Uncoded 12/13/18 12:11 closes up B-2 Allergy Uncoded 12/13/18 12:11 General Stated Complaint: Nk/Back Pain HUY: 3 Review of Systems Constitutional Constitutional: Denies chills and Denies fever(s) Cardiovascular Cardiovascular: Denies chest pain and Denies dyspnea on exertion Respiratory Respiratory: Denies cough and Denies dyspnea on exertion Gastrointestinal Gastrointestinal: Denies abdominal pain, Denies change in bowel habits, Denies constipation, Denies diarrhea, Denies nausea and Denies vomiting Genitourinary Genitourinary: Denies urinary incontinence Musculoskeletal Musculoskeletal: Reports as per HPI, Reports back pain, Reports muscle weakness, Reports numbness, Denies radiating pain into limb and Denies tingling Neurologic Neurologic: Reports numbness, Denies sensory deficit and Denies tingling PFSH Medical History ADD (attention deficit disorder) (Chronic) Cognitive developmental delay GERD (gastroesophageal reflux disease) (Chronic) Hypothyroid (Chronic) Infestation by Sarcoptes scabiei (Inactive 07/15/14) Migraine (Chronic) Posttraumatic stress disorder (Chronic 08/18/11) Surgical History History of wisdom tooth extraction (Acute) Family History Mother Depression Asthma Father Diabetes Asthma Brother Depression Asthma Grandfather No problems noted. Grandfather No problems noted. Grandmother No problems noted. Grandmother No problems noted. Daughter No problems noted. Social History Smoking/Tobacco Use Status: Current every day Tobacco Type: cigarettes Alcohol Intake: never Drug use: Occasionally Substance use type: marijuana Details: No IV Drug Use Adopted: No Caregiver/Support person: No Foster care: No Household members: significant other Housing: apartment Number of Children: 2 Do you need help understanding health information?: Always Sexually active: Yes Do you think of yourself as: straight/heterosexual Current gender identity: female Do you feel safe at home: Yes Do you feel safe in your relationship?: Yes History History 5 Para 2 Hx # Term Pregnancies 1 Multiple births 0 Hx # Pregnancies 0 Ectopic pregnancies 0 AB induced 0 Hx Number of Living Children 1 AB spontaneous 4 Past Pregnancies Del. Date GA/Weeks # Outcome Route Wgt Sex Labor Lgth Anesthes ia Location Prov Complic 03/05/15 39 Successful vaginal 3.005 kg Female 10 hrs regional [facility] Exam Const General: cooperative and no acute distress Orientation: alert, awake and oriented x3 Neck Neck: normal visual inspection, full ROM and no meningeal signs Resp Effort & Inspection: normal respiratory effort Auscultation: clear to auscultation bilaterally Cardio Rate: regular rate Rhythm: regular rhythm Heart Sounds: S1 normal and S2 normal GI Palpation: no hepatosplenomegaly, no aortic enlargement, no masses and no pulsatile masses Back/Spine/Pelvis Thoracic/Lumbar Spine: pain with thoraco-lumbar ROM, paraspinal tenderness (Lower lumbar), thoraco-lumbar ROM limited, No thoracic spinal tenderness and lumbar spinal tenderness (Diffuse nonfocal) Pelvis: no pain with anterior-posterior compression, no pain with lateral compression and buttock tenderness (Diffuse non-point) bilaterally Neuro General: alert, awake and oriented x3 DTR's: Rt Patellar: 2+, Lt Patellar: 2+, Rt Ankle: 2+ and Lt Ankle: 2+ Course Vital Signs Vital signs: Vital Signs Temperature 36.8 C 12/13/18 12:05 Pulse 96 H 12/13/18 12:05 Respiratory Rate 22 12/13/18 12:05 Blood Pressure 116/64 12/13/18 12:05 Pulse Oximetry 97 12/13/18 12:05 Temperature 36.8 C 12/13/18 12:05 Temperature Source Skin 12/13/18 12:05 Pulse 96 H 12/13/18 12:05 Respiratory Rate 22 12/13/18 12:05 Respiratory Effort 12/13/18 12:12 Blood Pressure 116/64 12/13/18 12:05 Blood Pressure Position Supine 12/13/18 12:05 Pulse Oximetry 97 12/13/18 12:05 Oxygen Delivery Method Room Air 12/13/18 12:05 Oxygen Flow Rate 0 12/13/18 12:05 Pain Level 10 12/13/18 12:13
[2018-12-13 12:48] LABS: Bilirubin Small (Negative); Blood Negative (Negative); Clarity Clear (Clear); Glucose Negative (Negative); Ketones >=160 mg/dL (Negative); Leukocyte Esterase Negative (Negative); Nitrite Negative (Negative); Specific Gravity 1.025 (1.005-1.025)
[2018-12-13] MEDS: Cyclobenzaprine 10 MG TAB PO (13:14)
[2018-12-13] MEDS: ACETAMINOPHEN 1,000 MG/100 ML BTL 400 MG IVPB (13:18)
[2018-12-13] MEDS: LORazepam 2 MG/ML VIAL 0.5 MG IVP (13:22)
--- NOTE | 2018-12-13 13:26 | NUR.NOTE ---
1325-pt to MRI via stretcher per transport. Nursing Note:
--- NOTE | 2018-12-13 14:10 | DI.MRI_ITS ---
EXAM: MR LUMBAR SPINE WO CLINICAL HISTORY: Traumatic back pain, lower extremity dysfunction. TECHNIQUE: Multiplanar multisequence MRI was performed. COMPARISON: XR LUMBAR SPINE COMPLETE from 12/12/2018 FINDINGS: In the sagittal T2 and STIR sequences, there is a question of dilatation of the central spinal canal. The conus medullaris appears normal. The marrow signal is normal throughout. There is no evidence of fracture. Intervertebral discs are intact. No disc herniation is seen. There is no central can al stenosis or neural foraminal narrowing. IMPRESSION: Question of mild dilatation of the central canal in the lower thoracic spinal cord. A thoracic MRI c ould be obtained for further evaluation.
[2018-12-13 15:17] VITALS: BP 122/76; PULSE 74; RESP 18; TEMP 36.7
--- NOTE | 2018-12-14 13:24 | NUR.NOTE ---
Nursing Note: Referral faxed to PCP for follow up. Orin Hair.
== END 2018-12-13 15:19 | disposition home or self-care (01) ==
PROVIDERS: Emergency Provider Nurse Practitioner Family; PCP Nurse Practitioner Adult Health
DX: M54.5 Low back pain (principal); W19.XXXA Unspecified fall, initial encounter; Y99.0 Civilian activity done for income or pay
CPT/HCPCS: 81025; 96365; 96374; 99285; 72148; 81003; 99284; J0131; J2060

== ENCOUNTER 2019-01-05 12:26 | Emergency (ER) | payer MEDICAID, SELFPAY ==
[2019-01-05 12:28] VITALS: BP 116/98; PULSE 99; RESP 20; TEMP 36.6; O2SAT 97
--- NOTE | 2019-01-05 13:07 | ED.GENADUL_ITS ---
Discharge Plan Disposition Patient Disposition: HOME Discharge Details Chief Complaint: EVENT SPECIALIST Clinical Impression: Yeast infection of the vagina Primary Care Provider: Johana Vang ED Provider: Dominick Kenyon Home Meds and New Rx's Prescriptions: New fluconazole 150 mg tablet 150 mg PO DAILY 3 Days Qty: 2 RF: 0 Continued Nexplanon 68 mg implant 1 implant SBD ONCE RF: 0 lansoprazole 30 mg capsule,delayed release(DR/EC) 30 mg PO DAILY Qty: 30 RF: 0 celecoxib 200 mg capsule 200 mg PO DAILY Qty: 30 RF: 0 levothyroxine 75 mcg tablet 75 mcg PO DAILY Qty: 90 RF: 3 topiramate [Topamax] 50 mg tablet 50 mg PO QHS Qty: 30 RF: 3 albuterol sulfate [Ventolin HFA] 90 mcg/actuation HFA aerosol inhaler 1 - 2 puff IH Q4H PRN (Reason: shortness of breath or wheezing) Qty: 8 RF: 1 gabapentin 100 mg capsule 100 - 200 mg PO BID Qty: 20 RF: 0 cyclobenzaprine 10 mg tablet 10 mg PO TID PRN (Reason: muscle spasm) Qty: 14 RF: 0 Discharge Instructions Additional Instructions: Take medication as prescribed. Please follow-up with your aquarium specialist. Return to the ER immediately for any worsening or new concerning symptoms. Referrals: [facility] [Provider Group] Johana Vang, SENIOR PREMIUM AUDITOR [Primary Care Provider] - Medical Decision Making 28-year-old female here with vulvar irritation. Suspect yeast infection. Plan to treat with fluconazole as patient notes Monistat has not helped in the past. Pelvic exam performed with female nurse route delivery manager present. Vaginal pathology specimen pending. GC and Chlamydia testing pending. Scant blood noted in vaginal vault, suspect menstruation. Will check urine . HPI General Mode of arrival: ambulatory . Date/Time Provider Initiated Documentation: 01/05/19 13:06 . Limitations to Documentation: no limitations . Information obtained by: patient . HPI Narrative: 28-year-old female presents with chief complaint of inflammation of the vulva. She notes over the past 4 days she has had inflammation including redness, itchiness, and mild discomfort. She denies vaginal discharge. No abdominal pain. No rash elsewhere. No known exposure to STDs. Patient notes she is currently having some vaginal bleeding and thinks she may be menstruating although she is had no cramps. Related Data Home Medications Medication Instructions Recorded Confirmed levothyroxine 75 mcg tablet 75 mcg PO DAILY #90 tab 04/12/18 01/05/19 etonogestrel 68 mg subdermal 1 implant SBD ONCE 05/01/18 01/05/19 implant topiramate 50 mg tablet 50 mg PO QHS #30 tab 11/13/18 01/05/19 cyclobenzaprine 10 mg PO TID PRN #14 tab 12/13/18 01/05/19 celecoxib 200 mg capsule 200 mg PO DAILY #30 cap 12/17/18 01/05/19 lansoprazole 30 mg capsule,delayed 30 mg PO DAILY #30 tab-cap 12/17/18 01/05/19 release Ventolin HFA 90 mcg/actuation 1 - 2 puff IH Q4H PRN #8 gm NS 12/19/18 01/05/19 aerosol inhaler gabapentin 100 mg capsule 100 - 200 mg PO BID #20 cap 12/30/18 01/05/19 fluconazole 150 mg PO DAILY 3 Days #2 tab 01/05/19 Previous Rx's Medication Instructions Recorded levothyroxine 75 mcg tablet 75 mcg PO DAILY #90 tab 04/12/18 topiramate 50 mg tablet 50 mg PO QHS #30 tab 11/13/18 cyclobenzaprine 10 mg PO TID PRN #14 tab 12/13/18 celecoxib 200 mg capsule 200 mg PO DAILY #30 cap 12/17/18 lansoprazole 30 mg capsule,delayed 30 mg PO DAILY #30 tab-cap 12/17/18 release Ventolin HFA 90 mcg/actuation 1 - 2 puff IH Q4H PRN #8 gm NS 12/19/18 aerosol inhaler gabapentin 100 mg capsule 100 - 200 mg PO BID #20 cap 12/30/18 fluconazole 150 mg PO DAILY 3 Days #2 tab 01/05/19 Allergies Allergy/AdvReac Type Severity Reaction Status Date / Time shellfish derived Allergy Severe Throat Unverified 01/05/19 12:32 closes up ibuprofen Allergy Intermediate Skin Rash Unverified 01/05/19 12:32 latex Allergy Intermediate Skin Rash Unverified 01/05/19 12:32 Penicillins Allergy Intermediate UTICARIA, Unverified 01/05/19 12:32 ROOM SPINS amoxicillin trihydrate Allergy Unknown unknown Unverified 01/05/19 12:32 [From Augmentin] metronidazole [From Flagyl] Allergy Unknown HIVES- RED Unverified 01/05/19 12:32 BLOTCHES sumatriptan succinate AdvReac Severe chest pain Unverified 01/05/19 12:32 [From Imitrex] tuna fish Allergy Unknown throat Uncoded 01/05/19 12:32 closes up B-2 Allergy Uncoded 01/05/19 12:32 General Stated Complaint: EVENT SPECIALIST HUY: 4 Review of Systems Constitutional Constitutional: Denies fever(s) Gastrointestinal Gastrointestinal: Denies abdominal pain Genitourinary Genitourinary: Reports as per HPI and Denies dysuria Integumentary/Breasts Skin/Breast: Reports as per HPI [facility] Medical History ADD (attention deficit disorder) (Chronic) Cognitive developmental delay (Chronic) Guardian (2019) GERD (gastroesophageal reflux disease) (Chronic) Hypothyroid (Chronic) Infestation by Sarcoptes scabiei (Inactive 07/15/14) Migraine (Chronic) Posttraumatic stress disorder (Chronic 08/18/11) Surgical History History of wisdom tooth extraction (Acute) Family History Mother Depression Asthma Father Diabetes Asthma Brother Depression Asthma Grandfather No problems noted. Grandfather No problems noted. Grandmother No problems noted. Grandmother No problems noted. Daughter No problems noted. Social History Smoking/Tobacco Use Status: Current every day Tobacco Type: cigarettes Smoking packs per day: 0.5 Smoking cigarettes per day: 10.0 Alcohol Intake: never Drug use: Occasionally Substance use type: marijuana Details: No IV Drug Use Adopted: No Caregiver/Support person: No Foster care: No Household members: significant other Housing: apartment Number of Children: 2 Do you need help understanding health information?: Always Sexually active: Yes Do you think of yourself as: straight/heterosexual Current gender identity: female Do you feel safe at home: Yes Do you feel safe in your relationship?: Yes History History 5 Para 2 Hx # Term Pregnancies 1 Multiple births 0 Hx # Pregnancies 0 Ectopic pregnancies 0 AB induced 0 Hx Number of Living Children 1 AB spontaneous 4 Past Pregnancies Del. Date GA/Weeks # Outcome Route Wgt Sex Labor Lgth Anesthes ia Location Prov Complic 03/05/15 39 Successful vaginal 3.005 kg Female 10 hrs regional [facility] Exam Const General: cooperative and no acute distress HENMT Mouth: moist mucous membranes Eyes Conjunctivae: normal conjunctivae Sclera: normal sclerae Resp Auscultation: clear to auscultation bilaterally, no rales, no rhonchi and no wheezes Cardio Jugular venous pressure: no JVD Rate: regular rate and not tachycardic Rhythm: regular rhythm GI Palpation: soft, not firm, no guarding, no masses, not rigid and nontender External Female Exam: erythema (mild vulva) and external swelling Speculum Exam - Vagina: normal vaginal discharge and vaginal bleeding (scant) Speculum Exam - Cervix: normal appearance of the cervix Bimanual Exam- Vagina & Uterus: normal bimanual exam Bimanual Exam- Adnexa, other: normal adnexae OB/External & Speculum: vaginal bleeding (scant) Skin General skin exam: no rashes or lesions noted Neuro General: alert, awake and tone normal Course Vital Signs Vital signs: Vital Signs Temperature 36.6 C 01/05/19 12:28 Pulse 99 H 01/05/19 12:28 Respiratory Rate 20 01/05/19 12:28 Blood Pressure 116/98 H 01/05/19 12:28 Pulse Oximetry 97 01/05/19 12:28 Temperature 36.6 C 01/05/19 12:28 Temperature Source Skin 01/05/19 12:28 Pulse 99 H 01/05/19 12:28 Respiratory Rate 20 01/05/19 12:28 Respiratory Effort Non-Labored 01/05/19 12:36 Blood Pressure 116/98 H 01/05/19 12:28 Blood Pressure Position Sitting 01/05/19 12:28 Pulse Oximetry 97 01/05/19 12:28 Oxygen Delivery Method Room Air 01/05/19 12:28 Oxygen Flow Rate 0 01/05/19 12:28 Pain Level 0 01/05/19 12:28
[2019-01-07 15:02] LABS: Chlamydia Result Negative (Negative); GC Result Negative (Negative)
[2019-01-08 15:51] LABS: Specimen Description Cervix
== END 2019-01-05 13:26 | disposition home or self-care (01) ==
PROVIDERS: Emergency Provider Student in an Organized Health Care Education/Training Program; PCP Nurse Practitioner Adult Health
DX: B37.3 Candidiasis of vulva and vagina (principal)
CPT/HCPCS: 81025; 87491; 87591; 99283; 87480; 87510; 87660

== ENCOUNTER 2019-01-22 10:28 | Outpatient (CLI) | payer MEDICAID, SELFPAY ==
[2019-01-22 12:56] LABS: TSH (W/Ref FT4) 0.29 uIU/mL (0.36-3.74)
[2019-01-22 13:14] LABS: FREE T4 1.11 ng/dL (0.76-1.46)
== END 2019-01-22 10:48 ==
PROVIDERS: PCP Nurse Practitioner Adult Health; Visit Provider Nurse Practitioner Adult Health
DX: E03.9 Hypothyroidism, unspecified (principal)
CPT/HCPCS: 36415; 84439; 84443

== ENCOUNTER 2019-02-07 11:33 | Emergency (ER) | payer MEDICAID, SELFPAY ==
[2019-02-07 11:39] VITALS: BP 159/111; PULSE 97; RESP 16; TEMP 36.8; O2SAT 98
--- NOTE | 2019-02-07 11:56 | W.ED.GENAD ---
Discharge Plan Disposition Patient Disposition: HOME Condition: Improving Discharge Details Chief Complaint: Abd Prob Clinical Impression: Abdominal pain Primary Care Provider: Johana Vang ED Provider: Kris Presley Home Meds and New Rx's Prescriptions: New ondansetron HCl [Zofran] 4 mg tablet 4 mg PO Q6H PRN (Reason: nausea and vomiting) Qty: 10 RF: 0 Continued Nexplanon 68 mg implant 1 implant SBD ONCE RF: 0 esomeprazole magnesium [Nexium] 40 mg capsule,delayed release(DR/EC) 40 mg PO DAILY Qty: 30 RF: 0 cyclobenzaprine 5 mg tablet 5 - 10 mg PO DAILY PRN (Reason: muscle spasm) Qty: 30 RF: 0 topiramate [Topamax] 50 mg tablet 50 mg PO BID Qty: 60 RF: 1 loratadine 10 mg tablet 10 mg PO DAILY RF: 0 albuterol sulfate [Ventolin HFA] 90 mcg/actuation HFA aerosol inhaler 1 - 2 puff IH Q4H PRN (Reason: shortness of breath or wheezing) Qty: 8 RF: 1 celecoxib 200 mg capsule 200 mg PO DAILY Qty: 30 RF: 2 levothyroxine 75 mcg tablet 75 mcg PO DAILY Qty: 90 RF: 3 Discharge Instructions Instructions: Abdominal Pain (ED) Additional Instructions: Home to rest today. Small, frequent sips of fluids and/or popsicles to maintain hydration. May use the prescribed Zofran if needed for persistent nausea. Please continue your regular medications including those prescribed today by [facility] internal medicine. Your work-up today included blood work, urinalysis, CT scan of the abdomen and pelvis. Medical Decision Making 28-year-old female presents from home with family. She complains of a day and a half of severe, diffuse, const abdominal pain associated with nausea and decreased p.o. intake. Her primary care office called and said that they had ordered a new prescription for proton pump inhibitor but the patient is not picked it up. She elected to be seen in the emergency department due to the subjective description of the severity of the pain. She arrives with a temp of 36, pulse 90, blood pressure 159/110 in mild distress and with elevated level of anxiety. IV access established, patient given anxiolytic and small aliquot of analgesic. She is referred for laboratory testing and CT images. Labs reveal a white blood cell count of 8, hematocrit 42, platelets 412. Chemistries unremarkable with normal LFTs. Urinalysis appears contaminated. CT images without acute finding. Note of left ovarian cyst and trace physiologic fluid. Patient improved with medication. Discussed with her that work-up at this point is reassuring and she is improving. She is stable and will trial outpatient management. She understands return precautions. HPI General Mode of arrival: ambulatory. Date/Time Provider Initiated Documentation: 02/07/19 11:37. Limitations to Documentation: no limitations. Information obtained by: patient and family. History of Present Illness 28 year old F presents to the emergency department with the chief complaint of Severe, diffuse abdominal pain, described as moderate, and is localized to the abdomen. Patient reports no radiation. Patient started experiencing this day(s) and it has been constant. No relieving factors improve symptom(s), No exacerbating factors reported . Patient notes other (Nauseated, no emesis. Reports normal bowel movement yesterday. No fever noted. Denies similar pain in the past. Has not been taking GERD medicines.). Patient did receive the following treatments prior to arrival, none Related Data Home Medications Medication Instructions Recorded Confirmed levothyroxine 75 mcg tablet 75 mcg PO DAILY #90 tab 04/12/18 02/07/19 etonogestrel 68 mg subdermal 1 implant SBD ONCE 05/01/18 02/07/19 implant Ventolin HFA 90 mcg/actuation 1 - 2 puff IH Q4H PRN #8 gm NS 01/17/19 02/07/19 aerosol inhaler celecoxib 200 mg capsule 200 mg PO DAILY #30 cap 01/17/19 02/07/19 loratadine 10 mg tablet 10 mg PO DAILY 01/17/19 02/07/19 cyclobenzaprine 5 mg tablet 5 - 10 mg PO DAILY PRN #30 tab 02/06/19 02/07/19 esomeprazole magnesium 40 mg 40 mg PO DAILY #30 cap 02/06/19 02/07/19 capsule,delayed release topiramate 50 mg tablet 50 mg PO BID #60 tab 02/06/19 02/07/19 ondansetron HCl [Zofran] 4 mg PO Q6H PRN #10 tab 02/07/19 Previous Rx's Medication Instructions Recorded levothyroxine 75 mcg tablet 75 mcg PO DAILY #90 tab 04/12/18 Ventolin HFA 90 mcg/actuation 1 - 2 puff IH Q4H PRN #8 gm NS 01/17/19 aerosol inhaler celecoxib 200 mg capsule 200 mg PO DAILY #30 cap 01/17/19 cyclobenzaprine 5 mg tablet 5 - 10 mg PO DAILY PRN #30 tab 02/06/19 esomeprazole magnesium 40 mg 40 mg PO DAILY #30 cap 02/06/19 capsule,delayed release topiramate 50 mg tablet 50 mg PO BID #60 tab 02/06/19 ondansetron HCl [Zofran] 4 mg PO Q6H PRN #10 tab 02/07/19 Allergies Allergy/AdvReac Type Severity Reaction Status Date / Time shellfish derived Allergy Severe Throat Unverified 02/07/19 11:58 closes up latex Allergy Intermediate Skin Rash Unverified 02/07/19 11:58 Penicillins Allergy Intermediate UTICARIA, Unverified 02/07/19 11:58 ROOM SPINS amoxicillin trihydrate Allergy Unknown unknown Unverified 02/07/19 11:58 [From Augmentin] metronidazole [From Flagyl] Allergy Unknown HIVES- RED Unverified 02/07/19 11:58 BLOTCHES sumatriptan succinate AdvReac Severe chest pain Unverified 02/07/19 11:58 [From Imitrex] tuna fish Allergy Unknown throat Uncoded 02/07/19 11:58 closes up B-2 Allergy Uncoded 02/07/19 11:58 General Stated Complaint: Abd Prob HUY: 3 Review of Systems Narrative: Abdominal pain since last night. Decreased p.o. intake and nausea. No emesis, no fever, no change to bowel habits. No known sick contacts. 8 systems reviewed and otherwise negative [facility] Medical History ADD (attention deficit disorder) (Inactive) Outgrew when became parent Cognitive developmental delay (Chronic) Guardian (2019) Maryam Chen (see chart note 01/03/2019) GERD (gastroesophageal reflux disease) (Chronic) Failed Omeprazole, Failed Lansoprazole, Failed Pepcid Hypothyroid (Chronic) Infestation by Sarcoptes scabiei (Inactive 07/15/14) Migraine (Chronic) Chronic, Celebrex helps Posttraumatic stress disorder (Chronic 08/18/11) Stress incontinence (Acute) Surgical History History of wisdom tooth extraction (Acute) Family History Mother Depression Asthma Father Diabetes Asthma Brother Depression Asthma Grandfather No problems noted. Grandfather No problems noted. Grandmother No problems noted. Grandmother No problems noted. Daughter No problems noted. Social History Smoking/Tobacco Use Status: Current every day Tobacco Type: cigarettes Smoking packs per day: 0.5 Smoking cigarettes per day: 10.0 Alcohol Intake: current Alcohol Intake frequency: a few times a month Alcohol type: hard liquor Drug use: Occasionally Substance use type: marijuana Details: No IV Drug Use Adopted: No Caregiver/Support person: No Foster care: No Household members: significant other Housing: apartment Number of Children: 2 Do you need help understanding health information?: Always Sexually active: Yes Do you think of yourself as: straight/heterosexual Current gender identity: female Do you feel safe at home: Yes Do you feel safe in your relationship?: Yes History History 5 Para 2 Hx # Term Pregnancies 1 Multiple births 0 Hx # Pregnancies 0 Ectopic pregnancies 0 AB induced 0 Hx Number of Living Children 1 AB spontaneous 4 Past Pregnancies Del. Date GA/Weeks # Outcome Route Wgt Sex Labor Lgth Anesthesia Location [facility] 03/05/15 39 Successful vaginal 3.005 kg Female 10 hrs regional [facility] Exam Narrative Exam Narrative: GEN: awake, alert, oriented 3. Pleasant, well groomed, interactive. HEAD: Normocephalic, atraumatic ENT: Mucous membranes moist, oropharynx unremarkable, External ear exam unremarkable EYES: PERRL, EOMI NECK: Full ROM, no NOLVIA, no menigismus CHEST/RESP: Nontender, clear to auscultation bilateral, no wheeze/rhonchi/rales CARDIOVASCULAR: RRR, no murmur, rub bolivar. 2+ Rad pulse bilateral ABDOMEN: Soft, mild diffuse tenderness to palpation without rebound or guarding, no mass. +Bowel sounds EXT: Full ROM, no edema, no rash Neuro: Grossly normal neurologic exam, conversant, interactive. Psych: Speech fluent, thoughts congruent, affect anxious Course Vital Signs Vital signs: Vital Signs Temperature 36.8 C 02/07/19 11:39 Pulse 97 H 02/07/19 11:39 Respiratory Rate 16 02/07/19 11:39 Blood Pressure 159/111 H 02/07/19 11:39 Pulse Oximetry 98 02/07/19 11:39 Temperature 36.8 C 02/07/19 11:39 Temperature Source Temporal Artery Scan 02/07/19 11:39 Pulse 97 H 02/07/19 11:39 Respiratory Rate 16 02/07/19 11:39 Respiratory Effort Non-Labored 02/07/19 11:39 Blood Pressure 159/111 H 02/07/19 11:39 Blood Pressure Position Sitting 02/07/19 11:39 Pulse Oximetry 98 02/07/19 11:39 Oxygen Delivery Method Room Air 02/07/19 11:39 Oxygen Flow Rate 0 02/07/19 11:39 Pain Level 10 02/07/19 11:39
[2019-02-07 12:02] LABS: Bilirubin Negative (Negative); Blood Negative (Negative); Clarity Cloudy (Clear); Glucose Negative (Negative); Ketones Negative (Negative); Leukocyte Esterase Small (Negative); Nitrite Negative (Negative); Urobilinogen 0.2 EU/dL (Up TO 0.2); pH 7.5 (5-8)
[2019-02-07] MEDS: LORazepam 2 MG/ML VIAL 1 MG IVP (12:02)
[2019-02-07] MEDS: Ketorolac 15 MG/ML VIAL IVP (12:02)
[2019-02-07] MEDS: Normal Saline 1,000 ML 1000 ML IV (12:03)
[2019-02-07 12:11] LABS: Bacteria Moderate HPF (Negative); C & S Indicated? No/Sq. Contamination; Casts Negative LPF (Negative); Crystals Many Amorphous HPF (Negative); Epithelial Cells Many HPF (Negative); Mucus Trace (Negative); RBC 0-2 HPF (0-2)
[2019-02-07 12:27] LABS: Abs Immature Grans 0.02 k/cumm (0.0-0.09); Absolute Basophil Count 0.01 k/cumm (0.0-0.2); Absolute Eosinophil Count 0.11 k/cumm (0.0-0.7); Absolute Lymphocyte Count 2.09 k/cumm (1.2-3.4); Absolute Monocyte Count 0.48 k/cumm (0.11-0.7); Absolute Neutrophil Count 5.98 k/cumm (1.2-6.7); Basophils % 0.1; Eosinophils % 1.3; HCT 42.3 % (36.0-46.0); HGB 13.1 g/dL (12.0-15.5); Immature Grans % 0.2; Lymphocytes % 24.1; Mean Corpuscular Hemoglobin 28.1 pg (27.0-33.0); Mean Corpuscular Volume 90.8 fL (80-95); Mean Platelet Volume 11.4 fL (8.0-11.0); Monocytes % 5.5; Neutrophils % 68.8; Platelet Count 412 x1000/uL (130-400); RBC 4.66 m/cumm (4.00-5.20); RBC Distribution Width 14.6 % (11.7-14.6); White Blood Cell Count 8.69 k/cumm (4.4-10.8)
[2019-02-07 12:42] LABS: ALT 10 U/L (14-59); AST 10 U/L (15-37); Albumin 3.7 g/dL (3.4-5.0); Alkaline Phosphatase 71 U/L (46-116); Anion Gap 10.9 mmol/L (3-11); BUN 16 mg/dL (7-18); Bilirubin, Total 0.2 mg/dL (0.2-1.0); CO2 22.1 mmol/L (21.0-32.0); CREATININE 0.85 mg/dL (0.55-1.02); Calcium 8.8 mg/dL (8.5-10.1); Chloride 109 mmol/L (98-107); Glucose 85 mg/dL (74-106); Magnesium 1.8 mg/dL (1.8-2.4); Potassium 3.7 mmol/L (3.5-5.1); Sodium 142 mmol/L (136-145); Total Protein 7.5 g/dL (6.4-8.2)
[2019-02-07] MEDS: Omnipaque 350 MG/ML 100 ML BTL IJ (13:05)
--- NOTE | 2019-02-07 13:07 | DI.CT_ITS ---
EXAM: CT ABDOMEN PELVIS W CLINICAL HISTORY: severe diffuse abd pain, R > L TECHNIQUE: Imaging Protocol: Axial computed tomography images with coronal and sagittal reformatted images were created and reviewed CONTRAST MATERIAL: Intravenous: Omnipaque 350 Contrast volume:100 mL contrast route:IV - Oral: No COMPARISON: ABD PELVIS WITH CONTRAST from 04/18/2017 FINDINGS: ABDOMEN: Lung Bases: Normal where visualized. Liver: Normal density. No measurable mass. Gallbladder and biliary tract: No radiodense calculus or dilation. Pancreas: Normal density, no abnormal calcifications or inflammatory process. Spleen: Normal. Kidneys: Normal size, contour and axis. No radiodense stones or obstructive uropathy. No masses seen. Adrenal glands: No masses seen. Abdominal Aorta: Abdominal portion non-dilated. PELVIS: Bladder: Symmetric distention, no gross wall thickening. Bowel: No obstruction or bowel wall thickening. No evidence of an acute appendicitis. Peritoneal cavity: No ascites, collection or mesenteric inflammatory response. Bones: Within normal limits. Reproductive organs: There is a 3 centimeter left ovarian cyst. Reproductive organs are otherwise un remarkable. Lymph nodes: Unremarkable. Impression: 3 centimeter left ovarian cyst. Otherwise unremarkable CT scan of the abdomen and pelvis. The findings were discussed with the emergency department on the date of the examination. DATA REPOSITORY: All CT scans at this facility are submitted to the National Radiology Data Registry (NRDR) Dose Index Registry (DIR) with the [employer] ([employer]). RADIATION OPTIMIZATION: All CT scans at this facility use at least one of these dose optimization te chniques: automated exposure control; mA and/or kV adjustment per patient size (includes targeted exa ms where dose is matched to clinical indication); or iterative reconstruction.
[2019-02-07 13:55] VITALS: BP 112/61; PULSE 71; RESP 16; O2SAT 100
== END 2019-02-07 13:59 | disposition home or self-care (01) ==
PROVIDERS: Emergency Provider Emergency Medicine; PCP Nurse Practitioner Adult Health
DX: R10.84 Generalized abdominal pain (principal); F41.9 Anxiety disorder, unspecified
CPT/HCPCS: 80053; 81025; 96361; 96374; 96375; 99285; 74177; 81003; 81015; 83735; 85025; 99284; J1885; J2060; J3490

== ENCOUNTER 2019-03-03 01:14 | Outpatient (CLI) | payer MEDICAID, SELFPAY ==
--- NOTE | 2019-03-03 12:57 | DI.US_ITS ---
EXAM: US PELVIS TRANSVAGINAL CLINICAL HISTORY: dysmenorrhea, N94.6 TECHNIQUE: Ultrasound performed using standard protocol. Transabdominal and transvaginal exams wer e performed. COMPARISON: No exams were available for comparison FINDINGS: The uterus is retroflexed and measures 6 x 3.5 x 4.4 cm. No fibroids are seen. The endometrial stripe measures 4 millimeters in thickness. Small cysts are seen on both ovaries. A cyst on right measures 1.7 cm. The cyst on the left measures 2.8 cm in greatest dimension. There is no evidence of torsion o r suspicious mass. There is no free fluid or hydronephrosis. IMPRESSION: Small bilateral ovarian cysts.
== END 2019-03-03 01:34 ==
PROVIDERS: PCP Nurse Practitioner Adult Health; Visit Provider Obstetrics & Gynecology
DX: N94.6 Dysmenorrhea, unspecified (principal); N85.4 Malposition of uterus; N83.291 Other ovarian cyst, right side; N83.292 Other ovarian cyst, left side
CPT/HCPCS: 76830; 76856

== ENCOUNTER 2019-04-07 11:21 | Outpatient (CLI) | payer MEDICAID, SELFPAY | END 2019-04-07 11:41 | PROVIDERS: PCP Nurse Practitioner Adult Health; Visit Provider Nurse Practitioner Adult Health | DX: E03.9 Hypothyroidism, unspecified (principal) | CPT/HCPCS: 36415; 84443 ==

== ENCOUNTER 2019-05-06 13:26 | Outpatient (CLI) | payer MEDICAID, SELFPAY ==
[2019-05-06 14:19] LABS: HCT 39.1 % (36.0-46.0); HGB 12.3 g/dL (12.0-15.5); Mean Corp. HGB Concentration 31.5 g/dL (32.0-36.0); Mean Corpuscular Hemoglobin 28.6 pg (27.0-33.0); Mean Corpuscular Volume 90.9 fL (80-95); Mean Platelet Volume 10.9 fL (8.0-11.0); Platelet Count 466 x1000/uL (130-400); RBC Distribution Width 14.2 % (11.7-14.6); White Blood Cell Count 9.09 k/cumm (4.4-10.8)
== END 2019-05-06 13:46 ==
PROVIDERS: PCP Nurse Practitioner Adult Health; Visit Provider Obstetrics & Gynecology
DX: N94.6 Dysmenorrhea, unspecified (principal); Z30.2 Encounter for sterilization; Z01.818 Encounter for other preprocedural examination; Z01.812 Encounter for preprocedural laboratory examination
CPT/HCPCS: 36415; 85027; 86850; 86900; 86901

== ENCOUNTER 2019-05-08 08:33 | Day surgery (SDC) | payer MEDICAID, SELFPAY ==
[2019-05-08] VITALS (8 sets, daily range): BP systolic 109–147; BP diastolic 72–106; PULSE 56–98; RESP 16–22; TEMP 36.1–36.7; O2SAT 98–100
[2019-05-08] MEDS: Lactated Ringers 1,000 ML 125 ML IV (09:03)
--- NOTE | 2019-05-08 10:25 | FALL_PTH ---
PATIENT: Orly Lora LOC: [facility] U#:[id number] AGE/SX: 28/F ROOM: RE05/08/[address]: Isaias Field MD : [id number] BED: DIS: 05/08/2019 SPEC #: [id number] RECD: 05/08/19 12:48 STATUS: DANIEL RELashay #: [id number] ARANZA: 05/08/19 10:[address]: Isaias Field DEPT: Surgical Specimen RECD BY: Orly Galloway ENTERED: 05/08/19 12:50 SP TYPE: Fall OTHR DR: Johana Vang APRN Tissues: 1 - FALLOPIAN TUBE (STERILIZATION) 2 - FALLOPIAN TUBE (STERILIZATION) 3 - ENDOMETRIUM BX/CURRETTE Procedures: GROSS AND MICRO LEVEL 2 GROSS AND MICRO LEVEL 4 Comments: [id number]
[2019-05-08] MEDS: Lidocaine 1% Multi-Dose 50 ML VIAL (10:50)
[2019-05-08] MEDS: Bupivacaine 0.5% Pres-Free 30 ML VIAL (11:00)
[2019-05-08] MEDS: Lidocaine 1% Pres-Free 5 ML VIAL (11:05)
[2019-05-08] MEDS: HYDROcodone 5/Acetaminophen 325 TAB PO ×2 (12:00→12:26)
--- NOTE | 2019-05-08 12:26 | W.PM.OP ---
Date of service: 05/08/19 Time of Service: 12:26 Operative Note Operative Note DATE OF PROCEDURE: 05/08/19 PRE-OP DIAGNOSIS: 1. Multiparity and desire for permanent sterilization. 2. Menorrhagia 3. Dysmenorrhea POST-OP DIAGNOSIS: same PROCEDURE: 1. Laparoscopic bilateral salpingectomy. 2. Hysteroscopy D&C 3. NovaSure endometrial ablation 4. Nexplanon removal SURGEON: Isaias Field ANESTHESIA: GETA and local ESTIMATED BLOOD LOSS: 10 PATHOLOGY: other (1. Bilateral fallopian tubes 2. Endometrial curettings) COMPLICATIONS: None Patient was transported to: PACU Patient's condition: stable Findings: 1. Normal laparoscopic exam including normal uterus, tubes and ovaries 2. Normal hysteroscopic exam Procedure Description: The patient was taken to the operating room and after adequate general anesthesia was obtained the patient was placed in lithotomy position. The patient was prepped and draped in the usual sterile manner. The skin and subcutaneous tissues at the umbilicus were infiltrated with 0.25% Marcaine solution. A small infraumbilical skin incision was then made with a #15 blade scalpel. Sharp dissection was carried down to the underlying layer of fascia. The fascia was incised with a scalpel and the peritoneum was entered sharply with hemostats. 2 sutures of 0 Vicryl were placed on either side of the fascial incision. A 10 mm balloon port trocar was advanced and secured in place. A pneumoperitoneum to approximately 15 mmHg was established with carbon dioxide. Two 5 mm ports were placed in the right upper and right lower quadrant. The right fallopian tube was grasped and elevated. Dissection was carried across the mesosalpinx to the proximal fallopian tube was transected and coagulated with the LigaSure device. Excellent hemostasis noted. A similar procedure was carried out on the left side. Again excellent hemostasis was noted. The two 5 mm trochars were removed under direct visualization. The abdomen was desufflated and the umbilical port was removed. The fascia at the umbilicus was closed with the 2 previously placed sutures of 0 Vicryl. Skin incisions were closed with interrupted sutures of 4-0 Monocryl and Dermabond was applied. Attention was then turned to the vaginal portion of this procedure. A weighted speculum was placed in the vagina with good visualization of the cervix. The cervix was grasped with a single-tooth tenaculum. A paracervical block with approximately 15 cc of 1% plain lidocaine solution was instilled. The cervix was gently dilated with Arevalo dilators. A 5 mm hysteroscope with normal saline distention media was advanced through the cervix easily. Good visualization of the endometrial cavity was made. The endometrial cavity showed a thin lining and normal contour and free of pathology. A sharp curettage was performed yielding scant tissue. With the uterine sound the cavity length was measured at 6.5 cm the NovaSure device was placed and cavity width was identified to be 4.8 cm. Cavity assessment was passed into the device was activated. At the completion of the burn cycle the NovaSure was removed and repeat hysteroscopy showed a thorough ablation throughout. All instrumentation was removed. On the medial aspect of the left arm the skin was prepped with ChloraPrep solution. The skin overlying the Nexplanon device was infiltrated with 1% plain lidocaine solution. A small incision was made with a #11 scalpel. The Nexplanon was delivered through the incision with minimal difficulty. The incision was closed with Dermabond and bulky dressing applied. The procedure was concluded at this point. Sponge, lap and needle counts were correct at the conclusion of the procedure. The patient was transferred to PACU in stable condition.
--- NOTE | 2019-05-08 13:25 | W.PM.DSUDISC ---
Discharge Plan Disposition Patient Disposition: HOME Condition: Good Discharge Details Attending Provider: Isaias Field Primary Care Provider: Johana Vang Home Meds and New Rx's Prescriptions: New hydrocodone-acetaminophen 5-325 mg Tablet 1 tab PO PRN PRNQty: 20 RF: 0 Continued Nexplanon 68 mg implant 1 implant SBD ONCE RF: 0 albuterol sulfate [Ventolin HFA] 90 mcg/actuation HFA aerosol inhaler 1 - 2 puff IH Q4H PRN (Reason: shortness of breath or wheezing) Qty: 8 RF: 1 loratadine 10 mg tablet 10 mg PO DAILY PRN (Reason: allergy symptoms) Qty: 90 RF: 3 levothyroxine 75 mcg tablet 75 mcg PO DAILY Qty: 90 RF: 3 celecoxib 200 mg capsule 200 mg PO DAILY Qty: 30 RF: 2 esomeprazole magnesium [Nexium] 40 mg capsule,delayed release(DR/EC) 40 mg PO HS RF: 0 Discharge Instructions Stand Alone Forms: [facility] Post Gynecology Surgery, [facility] Post Suction D+C, Elmer Tomlinson (DSU) DS: Diagnosis Discharge Diagnosis (1) Menorrhagia: Status: Acute (2) Sterilization: Status: Acute
== END 2019-05-08 13:35 | disposition home or self-care (01) ==
PROVIDERS: PCP Nurse Practitioner Adult Health; Visit Provider Obstetrics & Gynecology
PROC: (CPT 58661; principal; 2019-05-08 12:00)
PROC: (CPT 58353; 2019-05-08 12:00)
DX: Z30.2 Encounter for sterilization (principal); N94.6 Dysmenorrhea, unspecified; N92.0 Excessive and frequent menstruation with regular cycle; Z30.46 Encounter for surveillance of implantable subdermal contraceptive; F17.210 Nicotine dependence, cigarettes, uncomplicated
CPT/HCPCS: 58661; 58563; 11982; 81025; 88305; 88302; J1100; J1885; J2250; J2405; J2704

== ENCOUNTER 2019-08-18 08:54 | Emergency (ER) | payer MEDICAID, SELFPAY ==
--- NOTE | 2019-08-18 08:45 | DI.RAD_ITS ---
EXAM: XR ANKLE LT COMPLETE CLINICAL HISTORY: trauma, deformity TECHNIQUE: 2D digital imaging was performed. COMPARISON: No exams were available for comparison FINDINGS: BONES: No acute fracture is present. No bony destructive lesion is seen. JOINTS:The ankle mortise is normally aligned. SOFT TISSUE: Normal. IMPRESSION: Unremarkable radiographs of the left ankle. DATA REPOSITORY: RADIATION DOSE DELIVERED:
--- NOTE | 2019-08-18 08:58 | ED.GENADUL_ITS ---
Discharge Plan Disposition Patient Disposition: HOME Condition: Stable Discharge Details Chief Complaint: Orthopedic Clinical Impression: Ankle injury Primary Care Provider: Johana Vang ED Provider: Jennifer Kenyon Home Meds and New Rx's Prescriptions: Continued esomeprazole magnesium [Nexium] 40 mg capsule,delayed release(DR/EC) 40 mg PO BID Qty: 60 RF: 1 escitalopram oxalate [Lexapro] 10 mg tablet 15 mg PO DAILY Qty: 135 RF: 3 dicyclomine 10 mg capsule 10 mg PO DAILY PRN (Reason: IBS/diarrhea/intestinal spasm) Qty: 30 RF: 0 cyproheptadine 4 mg tablet 4 mg PO QHS Qty: 90 RF: 4 albuterol sulfate [Ventolin HFA] 90 mcg/actuation HFA aerosol inhaler 1 - 2 puff IH Q4H PRN (Reason: shortness of breath or wheezing) Qty: 8 RF: 1 loratadine 10 mg tablet 10 mg PO DAILY PRN (Reason: allergy symptoms) Qty: 90 RF: 3 levothyroxine 75 mcg tablet 75 mcg PO DAILY Qty: 90 RF: 3 celecoxib 200 mg capsule 200 mg PO DAILY Qty: 90 RF: 3 Discharge Instructions Instructions: Ankle Sprain (ED), Crutch Instructions (ED) Additional Instructions: Please return immediately to the emergency department if you develop any new or worsening symptoms, if your condition does not improve as expected, or if you become otherwise concerned. It is extremely important that you call soon as possible to make an appointment to be seen in follow-up for this visit by your primary care doctor. Referrals: Johana Vang, FRAME GATE MORTISER OPERATOR [Primary Care Provider] - Discharge Data Discharge Date/Time-TO BE ENTERED AT DEPARTURE: 08/18/19 13:14 Medical Decision Making Orly Mathis is a 29 y/o woman who presented to the emergency department with ankle pain after mechanical fall, no other pain or injuries, did not hit head or lose consciousness. On exam Pt is well and non-toxic appearing but does appear very uncomfortable. Diffuse TTP and edema left ankle. Left foot NVI. Concern for ankle sprain vs fracture. Exam/hx not c/w maisonneuve fx, significant trauma to the head, spine, thorax, abd, other extremities. Plan for IV pain control, xrays. xray left ankle shows no fx. On reassessment Pt c/o significant pain of the left dorsal foot, on re-exam dorsal foot with significant TTP, no overlying skin changes, no other TTP of the foot or lower leg aside from ankle as previously noted. Plan for foot xray. Xray neg. Suspect ankle sprain. Plan for brace, crutches, weight bearing as tolerated, outpt f/u. I had a lengthy discussion with Patient regarding return to emergency department precautions, home care, and importance of outpatient follow-up. Pt verbalizes understanding of the plan and is amenable. Patient discharged to home with clear plan for outpatient follow-up. All questions were answered. Disposition decision was made weighing the risks and benefits of hospitalization versus outpatient treatment, the risk for further decompensation, and the patient's wishes. Medical Records Medical records reviewed: Yes I reviewed the patient's medical records. Imaging Data Radiologic Study: Attestation: I personally reviewed and interpreted this imaging study as follows: Radiologist's impression: EXAM: XR FOOT LT COMPLETE CLINICAL HISTORY: trauma, foot pain TECHNIQUE: COMPARISON: CR XR foot RT complete from 07/10/2018 FINDINGS: Three views were obtained. No fracture is seen. EXAM: XR ANKLE LT COMPLETE CLINICAL HISTORY: trauma, deformity TECHNIQUE: 2D digital imaging was performed. COMPARISON: No exams were available for comparison FINDINGS: BONES: No acute fracture is present. No bony destructive lesion is seen. JOINTS:The ankle mortise is normally aligned. SOFT TISSUE: Normal. IMPRESSION: Unremarkable radiographs of the left ankle. HPI General Mode of arrival: EMS . Date/Time Provider Initiated Documentation: 08/18/19 08:57 . Limitations to Documentation: no limitations . Information obtained by: patient, RN notes reviewed and old records reviewed . HPI Narrative: Orly Mathis is a 29-year-old woman with a history of depression, PTSD, GERD, hypothyroidism presenting to the emergency department with ankle pain after fall. Patient reports that she took a step outside of her front door and tripped, falling 2 steps down to the ground. Patient reports that she heard a pop in her left ankle and had severe pain with the fall. Patient reports that she landed on her knees. She states that she did not hit her head, did not lose consciousness. She denies any other injuries. Patient reports that she was previously well in her usual state of health. She denies fever, cough, shortness of breath, vomiting, diarrhea, rash, any other pain. Related Data Home Medications Medication Instructions Recorded Confirmed Ventolin HFA 90 mcg/actuation 1 - 2 puff IH Q4H PRN #8 gm NS 01/17/19 08/18/19 aerosol inhaler loratadine 10 mg tablet 10 mg PO DAILY PRN #90 tab 04/03/19 08/18/19 levothyroxine 75 mcg tablet 75 mcg PO DAILY #90 tab 04/07/19 08/18/19 cyproheptadine 4 mg tablet 4 mg PO QHS #90 tab 06/24/19 08/18/19 celecoxib 200 mg capsule 200 mg PO DAILY #90 cap 07/22/19 08/18/19 dicyclomine 10 mg capsule 10 mg PO DAILY PRN #30 cap 08/11/19 08/18/19 escitalopram oxalate 10 mg tablet 15 mg PO DAILY #135 tab 08/11/19 08/18/19 esomeprazole magnesium 40 mg 40 mg PO BID #60 cap 08/11/19 08/18/19 capsule,delayed release Previous Rx's Medication Instructions Recorded Ventolin HFA 90 mcg/actuation 1 - 2 puff IH Q4H PRN #8 gm NS 01/17/19 aerosol inhaler loratadine 10 mg tablet 10 mg PO DAILY PRN #90 tab 04/03/19 levothyroxine 75 mcg tablet 75 mcg PO DAILY #90 tab 04/07/19 cyproheptadine 4 mg tablet 4 mg PO QHS #90 tab 06/24/19 celecoxib 200 mg capsule 200 mg PO DAILY #90 cap 07/22/19 dicyclomine 10 mg capsule 10 mg PO DAILY PRN #30 cap 08/11/19 escitalopram oxalate 10 mg tablet 15 mg PO DAILY #135 tab 08/11/19 esomeprazole magnesium 40 mg 40 mg PO BID #60 cap 08/11/19 capsule,delayed release Allergies Allergy/AdvReac Type Severity Reaction Status Date / Time shellfish derived Allergy Severe Throat Verified 08/18/19 09:08 closes up latex Allergy Intermediate Skin Rash Verified 08/18/19 09:08 Penicillins Allergy Intermediate UTICARIA, Verified 08/18/19 09:08 ROOM SPINS amoxicillin trihydrate Allergy Unknown unknown Verified 08/18/19 09:08 [From Augmentin] metronidazole [From Flagyl] Allergy Unknown HIVES- RED Verified 08/18/19 09:08 BLOTCHES sumatriptan succinate AdvReac Severe chest pain Verified 08/18/19 09:08 [From Imitrex] tuna fish Allergy Unknown throat Uncoded 08/18/19 09:08 closes up B-2 AdvReac Uncoded 08/18/19 09:08 General HUY: 3 Review of Systems Narrative: Constitutional: denies fevers Eyes: denies eye pain ENT: denies ear pain, dental pain, sore throat Cardiovascular: denies chest pain Respiratory: denies SOB, cough GI: denies abdominal pain, vomiting, diarrhea : denies flank pain MSK: denies back pain, neck pain, myalgias, reprots left ankle pain Skin: denies rash Neuro: denies headaches, numbness, weakness [facility] Medical History ADD (attention deficit disorder) (Inactive) Outgrew when became parent Cognitive developmental delay (Chronic) [facility] Development Program Guardian (2019) Maryam Chen (see chart note 01/03/2019) Guardian terminated 03/31/[address]. Depression (Chronic) GERD (gastroesophageal reflux disease) (Chronic) Failed Omeprazole, Failed Lansoprazole, Failed Pepcid Hypothyroid (Chronic) Infestation by Sarcoptes scabiei (Inactive 07/15/14) Migraine (Chronic) [facility] Posttraumatic stress disorder (Chronic 08/18/11) Stress incontinence (Acute) Social History Smoking/Tobacco Use Status: Current every day Tobacco Type: cigarettes Smoking packs per day: 0.5 Smoking cigarettes per day: 10.0 Alcohol Intake: never Drug use: Daily Substance use type: marijuana Details: No IV Drug Use Adopted: No Caregiver/Support person: No Foster care: No Household members: significant other Housing: apartment Number of Children: 2 Do you need help understanding health information?: Always Sexually active: Yes Do you think of yourself as: straight/heterosexual Current gender identity: female Do you feel safe at home: Yes Do you feel safe in your relationship?: Yes History History 5 Para 2 Hx # Term Pregnancies 1 Multiple births 0 Hx # Pregnancies 0 Ectopic pregnancies 0 AB induced 0 Hx Number of Living Children 1 AB spontaneous 4 Past Pregnancies Del. Date GA/Weeks # Outcome Route Wgt Sex Labor Lgth Anesthes ia Location Prov Complic 03/05/15 39 Successful vaginal 3.005 kg Female 10 hrs regional [facility] Exam Narrative Exam Narrative: Constitutional: well and [id number], appears uncomfortable but otherwise conversing normally HENT: head atraumatic/normocephalic/normal inspection, mucous membranes moist Eyes: conjunctiva normal, sclera normal, pupils 3mm b/l Neck: no stridor, normal ROM, trachea midline Resp: normal work of breathing Cardio: normal rate, normal rhythm Skin: warm, dry, normal color, no rash Neuro: alert, not altered, grossly non-focal, normal tone Ext: left ankle edematous without erythema or skin wound, left ankle diffusely TTP without focality, mild TTP over left dorsal foot, no TTP of heel, toes. ROM left ankle severely limited 2/2 pain. No proximal fibula/tibia TTP, no posterior calf TTP. DP pulses intact and symmetric. Psych: normal mood, normal affect, normal behavior
[2019-08-18] MEDS: fentaNYL 100 MCG/2 ML VIAL 75 MCG IVP (09:00)
[2019-08-18 09:02] VITALS: BP 133/60; PULSE 75; RESP 16; TEMP 36.6; O2SAT 100
[2019-08-18] MEDS: Ondansetron 4 MG/2 ML VIAL (09:05)
--- NOTE | 2019-08-18 10:00 | DI.RAD_ITS ---
EXAM: XR FOOT LT COMPLETE CLINICAL HISTORY: trauma, foot pain TECHNIQUE: COMPARISON: CR XR foot RT complete from 07/10/2018 FINDINGS: Three views were obtained. No fracture is seen. IMPRESSION:
[2019-08-18 12:53] VITALS: BP 106/50; PULSE 68; RESP 16; TEMP 36.7; O2SAT 99
[2019-08-18] MEDS: Ibuprofen 600 MG TAB (13:00)
== END 2019-08-18 13:14 | disposition home or self-care (01) ==
PROVIDERS: Emergency Provider Student in an Organized Health Care Education/Training Program; PCP Nurse Practitioner Adult Health
DX: S99.912A Unspecified injury of left ankle, initial encounter (principal); W10.8XXA Fall (on) (from) other stairs and steps, initial encounter
CPT/HCPCS: 81025; 96374; 96375; 99284; 73610; 73630; E0114; J2405; J3010; L1902

== ENCOUNTER 2019-12-20 19:13 | Emergency (ER) | payer MEDICAID, SELFPAY ==
[2019-12-20 19:17] VITALS: BP 125/89; PULSE 95; RESP 17; TEMP 36.7; O2SAT 98
--- NOTE | 2019-12-20 19:45 | DI.CT_ITS ---
EXAM: CT CERVICAL SPINE WO CLINICAL HISTORY: pain bilateral arms with paresthesia. TECHNIQUE: CT Examination of the cervical spine was performed utilizing multislice acquisition and m ultiplanar reconstruction. COMPARISON: CT HEAD NECK FACIAL WO from 09/03/2015 FINDINGS: The visualized lung apices are clear. The tracholaryngeal structures appear intact. No cervical mass or adenopathy seen. Intervertebral disc spaces are well maintained. No gross cervical disc herniation by CT criteria. Facet joints are normal. No bony abnormality seen. IMPRESSION: Normal cervical spine CT RADIATION DOSE DELIVERED: 424.1mGy.cm Total DLP 424.1mGy.cm Total DLP DATA REPOSITORY: All CT scans at this facility are submitted to the National Radiology Data Registry (NRDR) Dose Index Registry (DIR) with the [employer] ([employer]). RADIATION OPTIMIZATION: All CT scans at this facility use at least one of these dose optimization te chniques: automated exposure control; mA and/or kV adjustment per patient size (includes targeted exa ms where dose is matched to clinical indication); or iterative reconstruction.
--- NOTE | 2019-12-20 20:06 | W.ED.GENAD ---
Discharge Plan Disposition Patient Disposition: HOME Condition: Stable Discharge Details Clinical Impression: Arthralgia, Myalgia Primary Care Provider: Johana Vang ED Provider: Dominick Kenyon Home Meds and New Rx's Prescriptions: Continued cyproheptadine 4 mg tablet 4 mg PO QHS Qty: 90 RF: 4 albuterol sulfate [Ventolin HFA] 90 mcg/actuation HFA aerosol inhaler 1 - 2 puff IH Q4H PRN (Reason: shortness of breath or wheezing) Qty: 8 RF: 1 levothyroxine 75 mcg tablet 75 mcg PO DAILY Qty: 90 RF: 3 gabapentin 100 mg capsule 100 mg PO DAILY PRN (Reason: pain, severe) Qty: 30 RF: 0 esomeprazole magnesium [Nexium] 40 mg capsule,delayed release(DR/EC) 40 mg PO BID Qty: 60 RF: 1 topiramate [Topamax] 25 mg tablet 50 mg PO DAILY RF: 0 Discharge Instructions Instructions: Musculoskeletal Pain (ED) Additional Instructions: Please take ibuprofen over the counter. Take 600mg by mouth every 6 hours as needed for pain. Please take acetaminophen (tylenol) - 650mg every 6 hours by mouth as needed for pain. You may wish to use [id number] lidocaine patches. Please contact your primary care physician to arrange follow-up. Call on Sunday. Additional diagnostic studies may be necessary if your symptoms persist. Return to the ER for any worsening or new concerning symptoms. Referrals: Johana Vang, VOLUNTEER COORDINATOR [Primary Care Provider] - Medical Decision Making 2019??29-year-old female here with diffuse body myalgias and arthralgias, most notable in her upper extremities bilaterally as well as upper back and lower neck. She does have some paresthesias in her hands bilaterally. Patient has tenderness cervical spine as well as paraspinal cervical and upper thoracic. No known trauma. Consider stenosis and nerve root impingement. Plan to obtain CT of the cervical spine. Patient took ibuprofen 800 mg just prior to arrival. I will augment this with Tylenol 650 mg and also apply lidocaine patch. Consider other etiologies for discomfort including tickborne illness. I will obtain tick panel as well as CBC and complete metabolic panel. --CT interpreted by radiology, no acute findings. No malalignment. No foraminal stenosis or spinal stenosis. No features of disc bulge or herniation. Labs reviewed and nondiagnostic. Tick panel pending. Patient was encouraged to follow-up with her primary care physician and return to return for any worsening or new concerning symptoms. Discharge instructions were reviewed with the patient who verbalized understanding. She did express some frustration that she was not receiving Vicodin for her pain. I explained that this was not indicated but that if pain were to persist despite NSAIDs that she should discuss this with her doctor and that additional diagnostic testing may be necessary. HPI General Mode of arrival: ambulatory. Date/Time Provider Initiated Documentation: 12/20/19 19:21. Limitations to Documentation: no limitations. Information obtained by: patient. HPI Narrative: 29-year-old female here with chief complaint of arthralgias. Patient has pain in her arms bilaterally that has been present for the past 2 weeks. Pain has been constant. Patient denies any preceding traumatic event. Patient notes pain feels sharp and achy in bilateral arms. She denies neck pain but notes that she does have pain in her upper back. She has generalized arthralgias around the rest of her body. She denies chest pain. She does have associated paresthesias in her hands bilaterally. No rash and no fever. No known tick bites. Related Data Home Medications Medication Instructions Recorded Confirmed Ventolin HFA 90 mcg/actuation 1 - 2 puff IH Q4H PRN #8 gm NS 01/17/19 12/20/19 aerosol inhaler levothyroxine 75 mcg tablet 75 mcg PO DAILY #90 tab 04/07/19 12/20/19 cyproheptadine 4 mg tablet 4 mg PO QHS #90 tab 06/24/19 12/20/19 esomeprazole magnesium 40 mg 40 mg PO BID #60 cap 12/15/19 12/20/19 capsule,delayed release gabapentin 100 mg capsule 100 mg PO DAILY PRN #30 cap 12/15/19 12/20/19 topiramate [Topamax] 50 mg PO DAILY 12/20/19 12/20/19 Previous Rx's Medication Instructions Recorded Ventolin HFA 90 mcg/actuation 1 - 2 puff IH Q4H PRN #8 gm NS 01/17/19 aerosol inhaler levothyroxine 75 mcg tablet 75 mcg PO DAILY #90 tab 04/07/19 cyproheptadine 4 mg tablet 4 mg PO QHS #90 tab 06/24/19 esomeprazole magnesium 40 mg 40 mg PO BID #60 cap 12/15/19 capsule,delayed release gabapentin 100 mg capsule 100 mg PO DAILY PRN #30 cap 12/15/19 Allergies Allergy/AdvReac Type Severity Reaction Status Date / Time shellfish derived Allergy Severe Throat Verified 11/14/19 14:50 closes up latex Allergy Intermediate Skin Rash Verified 11/14/19 14:50 Penicillins Allergy Intermediate UTICARIA, Verified 11/14/19 14:50 ROOM SPINS amoxicillin trihydrate Allergy Unknown unknown Verified 11/14/19 14:50 [From Augmentin] metronidazole [From Flagyl] Allergy Unknown HIVES- RED Verified 11/14/19 14:50 BLOTCHES sumatriptan succinate AdvReac Severe chest pain Verified 11/14/19 14:50 [From Imitrex] tuna fish Allergy Unknown throat Uncoded 11/14/19 14:50 closes up B-2 AdvReac Uncoded 11/14/19 14:50 General Stated Complaint: GenMedical HUY: 4 Review of Systems All systems reviewed & are unremarkable except as noted in HPI and below Constitutional Constitutional: Denies fever(s) Musculoskeletal Musculoskeletal: Reports myalgias Integumentary/Breasts Skin/Breast: Denies rash [facility] Medical History ADD (attention deficit disorder) Outgrew when became parent Cognitive developmental delay [facility] Development Program Guardian (2018) Maryam Felipe Felix (see chart note 01/03/2019) Guardian terminated 03/31/[address] Depression GERD (gastroesophageal reflux disease) Failed Omeprazole, Failed Lansoprazole, Failed Pepcid Hypothyroid IBS (irritable bowel syndrome) Infestation by Sarcoptes scabiei (07/15/14) Migraine [facility] Posttraumatic stress disorder (08/18/11) Sterilization consult Stress incontinence Surgical History History of wisdom tooth extraction Hx of bilateral salpingectomy (~92) Family History Mother Depression Asthma Father Diabetes Asthma Brother Depression Asthma Grandfather No problems noted. Grandfather No problems noted. Grandmother No problems noted. Grandmother No problems noted. Daughter No problems noted. Social History Smoking/Tobacco Use Status: Current every day Tobacco Type: cigarettes Smoking packs per day: 0.5 Smoking cigarettes per day: 10.0 Alcohol Intake: current Alcohol Intake frequency: holidays/special occasions only Alcohol type: hard liquor Drug use: Occasionally Substance use type: marijuana Details: No IV Drug Use Adopted: No Caregiver/Support person: No Foster care: No Household members: significant other Housing: apartment Number of Children: 2 Do you need help understanding health information?: Always Sexually active: Yes Do you think of yourself as: straight/heterosexual Current gender identity: female Do you feel safe at home: Yes Do you feel safe in your relationship?: Yes History History 5 Para 2 Hx # Term Pregnancies 1 Multiple births 0 Hx # Pregnancies 0 Ectopic pregnancies 0 AB induced 0 Hx Number of Living Children 1 AB spontaneous 4 Past Pregnancies Del. Date GA/Weeks # Outcome Route Wgt Sex Labor Lgth Anesthesia Location Prov Compl 03/05/15 39 Successful vaginal 3005.049 g Female 10 hrs regional [facility] Exam Const General: cooperative and no acute distress HENMT Head: normocephalic and atraumatic Mouth: moist mucous membranes Eyes Conjunctivae: normal conjunctivae Sclera: normal sclerae Neck Neck: trachea midline and supple Resp Auscultation: clear to auscultation bilaterally, no rales, no rhonchi and no wheezes Cardio Jugular venous pressure: no JVD Rate: regular rate and not tachycardic Rhythm: regular rhythm GI Palpation: soft, not firm, no guarding, no masses, not rigid and nontender Back/Spine/Pelvis Cervical Spine: cervical ROM normal, cervical muscular tenderness, cervical spinal tenderness and No step off deformity Thoracic/Lumbar Spine: paraspinal tenderness (Bilateral upper thoracic) and No thoracic spinal tenderness Skin General skin exam: no rashes or lesions noted Neuro General: patient alert, patient awake and tone normal Extrem General: no edema Psych Appearance: grossly normal Mental Status: mental status grossly normal Course Vital Signs Vital signs: Vital Signs Temperature 36.7 C 12/20/19 19:17 Pulse 95 H 12/20/19 19:17 Respiratory Rate 17 12/20/19 19:17 Blood Pressure 125/89 12/20/19 19:17 Pulse Oximetry 98 12/20/19 19:17 Temperature 36.7 C 12/20/19 19:17 Temperature Source Tympanic 12/20/19 19:17 Pulse 95 H 12/20/19 19:17 Respiratory Rate 17 12/20/19 19:17 Respiratory Effort Non-Labored 12/20/19 19:23 Respiratory Depth Normal 12/20/19 19:23 Respiratory Pattern Normal 12/20/19 19:23 Blood Pressure 125/89 12/20/19 19:17 Blood Pressure Position Supine 12/20/19 19:17 Pulse Oximetry 98 12/20/19 19:17 Oxygen Delivery Method Room Air 12/20/19 19:17 Oxygen Flow Rate 0 12/20/19 19:17 Pain Level 7 12/20/19 19:17
[2019-12-20] MEDS: Lidocaine 5% Patch 1 PATCH TP (20:23)
[2019-12-20] MEDS: Acetaminophen 325 MG TAB 650 MG PO (20:23)
[2019-12-20 20:25] LABS: Abs Immature Grans 0.04 10^3/uL (0.0-0.06); Absolute Basophil Count 0.03 10^3/uL (0.0-0.2); Absolute Eosinophil Count 0.23 10^3/uL (0.0-0.7); Absolute Lymphocyte Count 2.85 10^3/uL (1.2-3.4); Absolute Monocyte Count 0.48 10^3/uL (0.1-0.8); Absolute Neutrophil Count 6.98 10^3/uL (1.2-6.7); Basophils % 0.3; Eosinophils % 2.2; HCT 41.6 % (36.0-46.0); HGB 13.4 g/dL (11.2-15.7); Immature Grans % 0.4; Lymphocytes % 26.9; MCH 28.3 pg (27.0-33.0); MCHC 32.2 % (32.0-36.0); MCV 87.9 fL (80-95); MPV 11.4 fL (8.0-11.0); Monocytes % 4.5; Neutrophils % 65.7; Nucleated RBC 0 %; Platelet Count 437 10^3/uL (130-400); RBC 4.73 10^6/uL (3.93-5.22); RDW 14.6 % (11.7-14.6); RDW-SD 47.1 fL; WBC 10.61 10^3/uL (4.4-10.8)
[2019-12-20 20:39] LABS: ALT 15 U/L (14-59); AST 12 U/L (15-37); Albumin 3.6 g/dL (3.4-5.0); Alkaline Phosphatase 88 U/L (46-116); Anion Gap 9.9 mmol/L (3-11); BUN 14 mg/dL (7-18); Bilirubin, Total 0.2 mg/dL (0.2-1.0); CO2 22.1 mmol/L (21.0-32.0); Calcium 8.6 mg/dL (8.5-10.1); Chloride 106 mmol/L (98-107); Glucose 100 mg/dL (74-106); Potassium 3.7 mmol/L (3.5-5.1); Sodium 138 mmol/L (136-145); Total Protein 7.8 g/dL (6.4-8.2)
--- NOTE | 2019-12-20 20:41 | DI.VRAD_ITS ---
PROCEDURE INFORMATION: Exam: CT Cervical Spine Without Contrast Exam date and time: 12/20/2019 8:27 PM Age: 29 years old Clinical indication: Neck pain; Patient HX: Pain bilateral arms with paresthesia TECHNIQUE: Imaging protocol: Computed tomography images of the cervical spine without contrast. COMPARISON: CT HEAD NECK FACIAL WO 09/03/2015 9:52 PM FINDINGS: Vertebrae: No acute fracture. Normal alignment. C2-C3: No significant disc protrusion. No severe spinal canal stenosis. No significant neural foraminal narrowing. C3-C4: No significant disc protrusion. No severe spinal canal stenosis. No significant neural foraminal narrowing. C4-C5: No significant disc protrusion. No severe spinal canal stenosis. No significant neural foraminal narrowing. C5-C6: No significant disc protrusion. No severe spinal canal stenosis. No significant neural foraminal narrowing. C6-C7: No significant disc protrusion. No severe spinal canal stenosis. No significant neural foraminal narrowing. C7-T1: No significant disc protrusion. No severe spinal canal stenosis. No significant neural foraminal narrowing. Soft tissues: Unremarkable. Lungs: Lung apices are normal. IMPRESSION: 1. No acute findings. 2. No malalignment. 3. No foraminal stenosis or spinal stenosis. 4. No features of disc bulge or herniation. Dictated and Authenticated by: Mandeep Rosa MD. Ordering:VIANNEY Tan MD
[2019-12-22 11:00] LABS: Lyme Ab w Rflx to Lyme Confirm Negative (Negative)
[2019-12-24 18:57] LABS: Anaplasma phagocytophilum Negative (Negative); B. miyamotoi PCR Negative (Negative); Babesia divergens/MO-1 Negative (Negative); Babesia duncani Negative (Negative); Babesia microti Negative (Negative); Ehrlichia chaffeensis Negative (Negative); Ehrlichia ewingii/canis Negative (Negative); Ehrlichia muris eauclairensis Negative (Negative)
== END 2019-12-20 21:20 | disposition home or self-care (01) ==
PROVIDERS: Emergency Provider Student in an Organized Health Care Education/Training Program; PCP Nurse Practitioner Adult Health
DX: M79.10 Myalgia, unspecified site (principal); R20.2 Paresthesia of skin; M54.6 Pain in thoracic spine; M79.601 Pain in right arm; M79.602 Pain in left arm
CPT/HCPCS: 36415; 80053; 87798; 99284; 72125; 85025; 86618

== ENCOUNTER 2019-12-24 14:03 | Outpatient (REF) | payer MEDICAID, SELFPAY ==
[2019-12-24 19:18] LABS: Abs Immature Grans 0.04 10^3/uL (0.0-0.06); Absolute Basophil Count 0.04 10^3/uL (0.0-0.2); Absolute Lymphocyte Count 1.91 10^3/uL (1.2-3.4); Absolute Monocyte Count 0.43 10^3/uL (0.1-0.8); Basophils % 0.4; Eosinophils % 1.4; HCT 41.2 % (36.0-46.0); HGB 13.2 g/dL (11.2-15.7); Immature Grans % 0.4; Lymphocytes % 17.2; MCH 28.6 pg (27.0-33.0); MCV 89.4 fL (80-95); Monocytes % 3.9; Neutrophils % 76.7; Nucleated RBC 0 %; Platelet Count 408 10^3/uL (130-400); RBC 4.61 10^6/uL (3.93-5.22); RDW 14.9 % (11.7-14.6); RDW-SD 49.1 fL
[2019-12-24 19:19] LABS: Absolute Eosinophil Count 0.16 10^3/uL (0.0-0.7); Absolute Neutrophil Count 8.51 10^3/uL (1.2-6.7)
[2019-12-24 19:57] LABS: ESR 25 mm/hr (0-20)
[2019-12-24 20:03] LABS: ALT 14 U/L (14-59); AST 9 U/L (15-37); Albumin 3.7 g/dL (3.4-5.0); Alkaline Phosphatase 83 U/L (46-116); Anion Gap 7.2 mmol/L (3-11); BUN 16 mg/dL (7-18); Bilirubin, Total 0.2 mg/dL (0.2-1.0); CO2 24.8 mmol/L (21.0-32.0); CREATININE 0.76 mg/dL (0.55-1.02); Calcium 9.1 mg/dL (8.5-10.1); Chloride 105 mmol/L (98-107); Glucose 73 mg/dL (74-106); Potassium 4.6 mmol/L (3.5-5.1); Sodium 137 mmol/L (136-145); Total Protein 7.3 g/dL (6.4-8.2); Vitamin B12 384 pg/mL (193-986)
[2019-12-24 20:16] LABS: Creatine Kinase 49 U/L (26-192)
== END 2019-12-24 14:23 ==
LOC: LBO 14:03
PROVIDERS: PCP Nurse Practitioner Adult Health; Referring Provider Nurse Practitioner Adult Health; Visit Provider Nurse Practitioner Adult Health
DX: M25.59 Pain in other specified joint (principal); M79.18 Myalgia, other site; R20.2 Paresthesia of skin
CPT/HCPCS: 80053; 82550; 85652; 82607; 84443; 85025

== ENCOUNTER 2020-04-23 17:51 | Outpatient (REF) | payer MEDICAID, SELFPAY ==
[2020-04-25 16:35] LABS: COVID-19 RT-PCR UVMMC Result Negative (Negative)
== END 2020-04-23 17:52 | disposition home or self-care (01) ==
LOC: LBN 17:51
PROVIDERS: PCP Nurse Practitioner Adult Health; Visit Provider Family Medicine
DX: Z20.822 Contact with and (suspected) exposure to COVID-19 (principal); J45.901 Unspecified asthma with (acute) exacerbation
CPT/HCPCS: U0003

== ENCOUNTER 2020-10-13 12:43 | Outpatient (REF) | payer MEDICAID, SELFPAY ==
[2020-10-13 16:47] LABS: ALT 18 U/L (14-59); AST 10 U/L (15-37); Albumin 3.5 g/dL (3.4-5.0); Alkaline Phosphatase 66 U/L (46-116); Anion Gap 8.6 mmol/L (3-11); BUN 12 mg/dL (7-18); Bilirubin, Total 0.2 mg/dL (0.2-1.0); CO2 23.4 mmol/L (21.0-32.0); CREATININE 0.8 mg/dL (0.55-1.02); Calcium 8.6 mg/dL (8.5-10.1); Chloride 109 mmol/L (98-107); Glucose 85 mg/dL (74-106); Potassium 4.4 mmol/L (3.5-5.1); Sodium 141 mmol/L (136-145); TSH (W/Ref FT4) 2.45 uIU/mL (0.36-3.74); Total Protein 6.6 g/dL (6.4-8.2)
== END 2020-10-13 12:44 | disposition home or self-care (01) ==
LOC: LBN 12:43
PROVIDERS: Visit Provider Nurse Practitioner
DX: E07.9 Disorder of thyroid, unspecified (principal); R19.8 Other specified symptoms and signs involving the digestive system and abdomen; F41.9 Anxiety disorder, unspecified
CPT/HCPCS: 80053; 84443

== ENCOUNTER 2021-02-18 20:43 | Emergency (ER) | payer MEDICAID, SELFPAY ==
[2021-02-18 20:47] VITALS: BP 106/67; PULSE 77; RESP 18; TEMP 36.7; O2SAT 98
--- NOTE | 2021-02-18 20:59 | ED.GENADUL_ITS ---
Discharge Plan Disposition Patient Disposition: HOME Condition: Stable Discharge Details Chief Complaint: Headache Clinical Impression: Migraine Primary Care Provider: Unknown,Unknown ED Provider: Vamsi Aguirre Discharge Instructions Instructions: Migraine Headache (ED) Additional Instructions: follow up with your primary care provider within 1-2 weeks if you feel more ill, have severe worsening pain, or fevers return to the emergency department Medical Decision Making 30 yo female who states she has a history of frequent migraines who comes in with pain in her frontal head similar to prior migraines. She states it has slowly been worsening since yesterday and denies that the pain is the worst of her life. She denies fevers, has had n/v which she states happens frequently when she gets migraines. She denies vision changes, neck stiffness, chest pain, dyspnea, abdominal pain. She is caox4, CN II-XII intact, no focal motor or sensation deficits and clear speech. Given her history I suspect this is a migraine and will treat with compazine, dexamethasone, and toradol and reassess. Her symptoms are not consistent with subarachnoid or other hemorrhage, and no findings to suggest furnace attendant infection. pt ambulating and feels much better requesting d/c. Given rapid improvement with meds suspect migraine. Advised to f/u with pcp and return precautions given Differential Diagnosis Differential Diagnosis: migraine, tension headache Lab Data Lab results reviewed: Yes I reviewed the patient's lab results. HPI General Mode of arrival: EMS . Date/Time Provider Initiated Documentation: 02/18/21 20:52 . Limitations to Documentation: no limitations . Information obtained by: patient . History of Present Illness 30 year old F presents to the emergency department with the chief complaint of migraine, described as moderate, Patient started experiencing this day(s) (1) and it has been constant. No relieving factors improve symptom(s), No exacerbating factors reported . Patient notes nausea/vomiting. Patient did receive the following treatments prior to arrival, none General Stated Complaint: Headache HUY: 4 Review of Systems All systems reviewed & are unremarkable except as noted in HPI and below Constitutional Constitutional: Denies chills, Denies fever(s) and Denies weakness Cardiovascular Cardiovascular: Denies chest pain and Denies dyspnea Respiratory Respiratory: Denies cough and Denies dyspnea Gastrointestinal Gastrointestinal: Denies abdominal pain Musculoskeletal Musculoskeletal: Denies joint swelling Neurologic Neurologic: Denies weakness PFSH All Active Problems (Updated 02/18/21 @ 22:08 by Vamsi Aguirre MD) Migraine (Chronic) Social History Smoking/Tobacco Use Status: Current every day Tobacco Type: cigarettes Smoking risk assessment performed?: Yes Alcohol Intake: never Drug use: Occasionally Substance use type: marijuana Do you feel safe at home: Yes Do you feel safe in your relationship?: Yes Exam Const General: no acute distress Orientation: alert HENMT Head: normal to inspection Ears: external ears normal General nose exam: external nose normal Mouth: moist mucous membranes Eyes General: appearance normal, both eyes and all related structures Neck Neck: normal visual inspection Resp Effort & Inspection: normal respiratory effort and able to speak in complete sentences Cardio Rate: regular rate GI Palpation: soft and nontender Skin General skin exam: no rashes or lesions noted Neuro General: patient alert and patient oriented x3 Extrem General: normal to inspection Psych Mental Status: mental status grossly normal Course Vital Signs Vital signs: Vital Signs Temperature 36.7 C 02/18/21 20:47 Pulse 77 02/18/21 20:47 Respiratory Rate 18 02/18/21 20:47 Blood Pressure 106/67 02/18/21 20:47 Pulse Oximetry 98 02/18/21 20:47 Temperature 36.7 C 02/18/21 20:47 Temperature Source Tympanic 02/18/21 20:47 Pulse 77 02/18/21 20:47 Respiratory Rate 18 02/18/21 20:47 Respiratory Effort 02/18/21 20:50 Blood Pressure 106/67 02/18/21 20:47 Blood Pressure Position Supine 02/18/21 20:47 Pulse Oximetry 98 02/18/21 20:47 Oxygen Delivery Method Room Air 02/18/21 20:47 Oxygen Flow Rate 0 02/18/21 20:47 Pain Level 9 02/18/21 20:50
[2021-02-18] MEDS: Dexamethasone 10 MG/ML VIAL IVP (21:20)
[2021-02-18] MEDS: diphenhydrAMINE 50 MG/ML VIAL 25 MG IVP (21:20)
[2021-02-18] MEDS: Ketorolac 15 MG/ML VIAL IVP (21:21)
[2021-02-18] MEDS: Prochlorperazine 10 MG/2 ML VIAL IVP (21:21)
[2021-02-18] MEDS: Normal Saline 1,000 ML 1000 ML IV (21:21)
[2021-02-18 22:00] LABS: Bilirubin Negative (Negative); Blood Negative (Negative); Clarity Sl Cloudy (Clear); Glucose Negative (Negative); Ketones Trace mg/dL (Negative); Leukocyte Esterase Negative (Negative); Nitrite Negative (Negative); Specific Gravity >= 1.030 (1.005-1.025); Urobilinogen 0.2 EU/dL (Up TO 0.2); pH 6.5 (5-8)
== END 2021-02-18 22:16 | disposition home or self-care (01) ==
PROVIDERS: Emergency Provider Emergency Medicine
DX: G43.909 Migraine, unspecified, not intractable, without status migrainosus (principal)
CPT/HCPCS: 81025; 96361; 96374; 96375; 99284; 81003; 99283; J0780; J1100; J1200; J1885

== ENCOUNTER 2021-02-18 20:58 | Emergency (ER) | payer MEDICAID, SELFPAY | END 2021-02-18 22:16 | LOC: ER 21:37 | DX: R69 Illness, unspecified (principal) ==

== ENCOUNTER 2021-10-26 14:35 | Outpatient (REF) | payer MEDICAID, SELFPAY ==
[2021-10-26 17:58] LABS: TSH (W/Ref FT4) 1.51 uIU/mL (0.36-3.74)
== END 2021-10-26 14:36 | disposition home or self-care (01) ==
LOC: NCHCN 14:35
PROVIDERS: Visit Provider Nurse Practitioner Family
DX: E07.9 Disorder of thyroid, unspecified (principal)
CPT/HCPCS: 84443

== ENCOUNTER 2021-11-09 15:40 | Emergency (ER) | payer MEDICAID, SELFPAY ==
--- NOTE | 2021-11-09 15:45 | DI.RAD_ITS ---
Exam(s) XR SACRUM COCCYX EXAM: XR SACRUM COCCYX CLINICAL HISTORY: Fall, tail bone pain. TECHNIQUE: 2D digital imaging was performed. COMPARISON: No exams were available for comparison FINDINGS: 3 views No evidence of obvious sacral nor coccyx fracture. Sacroiliac joints appear unremarkable. Bone dens ity is age-appropriate. No osseous lesions evident. IMPRESSION: No sacral fracture seen. DATA REPOSITORY: RADIATION DOSE DELIVERED:
[2021-11-09 15:46] VITALS: BP 101/64; PULSE 73; RESP 18; TEMP 36.7
--- NOTE | 2021-11-09 15:54 | W.ED.GENAD ---
Discharge Plan Disposition Patient Disposition: HOME Condition: Stable Discharge Details Clinical Impression: Tailbone injury, Fractured coccyx Primary Care Provider: Amy Hannon ED Provider: Kris Presley Home Meds and New Rx's Prescriptions: New hydrocodone-acetaminophen 5-325 mg tablet 1 tab PO Q8H PRN (Reason: pain) Qty: 6 0RF Rx Instructions: No additional Tylenol with this medication Continued cyproheptadine 4 mg tablet 4 mg PO QHS Qty: 90 4RF escitalopram oxalate [Lexapro] 10 mg tablet 10 mg PO DAILY Qty: 90 3RF Rx Instructions: Restarting for anxiety 05/10/2020 fexofenadine 180 mg tablet 180 mg PO DAILY PRN (Reason: allergies) Qty: 90 3RF Rx Instructions: Allergies levothyroxine 75 mcg tablet 75 mcg PO DAILY Qty: 90 3RF albuterol sulfate [Ventolin HFA] 90 mcg/actuation HFA aerosol inhaler 1 - 2 puff IH Q4H PRN (Reason: shortness of breath or wheezing) Qty: 8 1RF Rx Instructions: PLEASE NO SUBSTITUTIONS; PROAIR INEFFECTIVE topiramate [Topamax] 25 mg tablet 25 mg PO BID Qty: 60 1RF Rx Instructions: Migraine prevention; dose increase 02/25/2020 esomeprazole magnesium [Nexium] 40 mg capsule,delayed release(DR/EC) 40 mg PO BID Qty: 60 3RF Rx Instructions: Heartburn gabapentin 100 mg capsule 100 mg PO BID Rx Instructions: For severe back/hip pain daily PRN. Ok to subs for tabs. Discharge Instructions Instructions: Coccyx Injury (ED) Additional Instructions: Use an inflatable donut to ease pressure on your tailbone. May apply ice to area to reduce pain and swelling. You may develop bruising in this area. No Tylenol if you have severe enough pain to utilize the hydrocodone with Tylenol. Continue your routine medications. Follow-up with regular doctor if not improving Discharge Data Discharge Date/Time-TO BE ENTERED AT DEPARTURE: 11/09/21 16:45 Medical Decision Making 31-year-old female states she slipped and fell at home, landing on her buttocks. She has had tailbone pain since that time. She had some pain with defecation but no change to stool or urination. No weakness or numbness. Minimally improved with Tylenol at home. Exam reveals tenderness, normal motor and sensory function. Patient referred for x-ray which reveals subtle distal coccyx fracture with minimal displacement. Formal read is pending. Discussed with patient home management. Discussed and consented for analgesia. HPI General Mode of arrival: ambulatory. Date/Time Provider Initiated Documentation: 11/09/21 15:46. Limitations to Documentation: no limitations. Information obtained by: patient. History of Present Illness 31 year old F presents to the emergency department with the chief complaint of Fall, tail bone pain. No weakness or numbnes, described as moderate, Quality is described as dull and constant, Patient reports radiation to back. Patient started experiencing this hour(s) and it has been constant. Rest improves symptom(s), Other factors that worsen symptoms (sitting) . Patient notes denies weakness. Patient did receive the following treatments prior to arrival, none Related Data Home Medications Medication Instructions Recorded Confirmed cyproheptadine 4 mg tablet 4 mg PO QHS #90 tabs 06/24/19 11/09/21 levothyroxine 75 mcg tablet 75 mcg PO DAILY #90 tabs 04/08/20 11/09/21 Ventolin HFA 90 mcg/actuation 1 - 2 puff inhalation Q4H PRN 04/26/20 11/09/21 aerosol inhaler (albuterol sulfate) shortness of breath or wheezing #8 grams escitalopram oxalate 10 mg tablet 10 mg PO DAILY #90 tabs 05/10/20 11/09/21 (Lexapro) fexofenadine 180 mg tablet 180 mg PO DAILY PRN allergies #90 05/10/20 11/09/21 tabs topiramate 25 mg tablet (Topamax) 25 mg PO BID #60 tabs 07/02/20 11/09/21 esomeprazole magnesium 40 mg 40 mg PO BID #60 caps 07/21/20 11/09/21 capsule,delayed release (Nexium) gabapentin 100 mg capsule 100 mg PO BID 11/09/21 11/09/21 hydrocodone 5 mg-acetaminophen 325 1 tab PO Q8H PRN pain #6 tabs 11/09/21 mg tablet Previous Rx's Medication Instructions Recorded cyproheptadine 4 mg tablet 4 mg PO QHS #90 tabs 06/24/19 levothyroxine 75 mcg tablet 75 mcg PO DAILY #90 tabs 04/08/20 Ventolin HFA 90 mcg/actuation 1 - 2 puff inhalation Q4H PRN 04/26/20 aerosol inhaler (albuterol sulfate) shortness of breath or wheezing #8 grams escitalopram oxalate 10 mg tablet 10 mg PO DAILY #90 tabs 05/10/20 (Lexapro) fexofenadine 180 mg tablet 180 mg PO DAILY PRN allergies #90 05/10/20 tabs topiramate 25 mg tablet (Topamax) 25 mg PO BID #60 tabs 07/02/20 esomeprazole magnesium 40 mg 40 mg PO BID #60 caps 07/21/20 capsule,delayed release (Nexium) hydrocodone 5 mg-acetaminophen 325 1 tab PO Q8H PRN pain #6 tabs 11/09/21 mg tablet Allergies Allergy/AdvReac Type Severity Reaction Status Date / Time shellfish derived Allergy Severe Throat Verified 11/09/21 15:50 closes up latex Allergy Intermediate Skin Rash Verified 11/09/21 15:50 Penicillins Allergy Intermediate URTICARIA, Verified 11/09/21 15:50 ROOM SPINS amoxicillin trihydrate Allergy Unknown unknown Verified 11/09/21 15:50 [From Augmentin] metronidazole [From Flagyl] Allergy Unknown HIVES- RED Verified 11/09/21 15:50 BLOTCHES sumatriptan succinate AdvReac Severe chest pain Verified 11/09/21 15:50 [From Imitrex] tuna fish Allergy Unknown throat Uncoded 11/09/21 15:50 closes up B-2 AdvReac Uncoded 11/09/21 15:50 General Stated Complaint: Nk/Back Pain HUY: 4 Review of Systems Narrative: 6 systems reviewed and otherwise negative PFSH All Active Problems (Updated 11/09/21 @ 16:27 by Kris Presley MD) Tailbone injury (Acute) Fractured coccyx (Acute) Migraine (Chronic) [facility] Cognitive developmental delay (Chronic) [facility] Development Program Guardian (2019) Maryam Chen (see chart note 01/03/2019) Guardian terminated 03/31/[address]. Allergic rhinitis (Acute) Posttraumatic stress disorder (Chronic 08/18/11) GERD (gastroesophageal reflux disease) (Chronic) Failed Omeprazole, Failed Lansoprazole, Failed Pepcid Insertion of implantable subdermal contraceptive (Acute 03/08/15) Nicotine dependence (Chronic) 8 cigs/day Cannabis dependence (Chronic) Daily Hypothyroid (Chronic) Stress incontinence (Acute) Ovarian cyst (Acute) Dysmenorrhea (Acute) Abnormal MRI, thoracic spine (Acute[place] [facility] [place] [facility] [place] Menorrhagia (Acute) IBS (irritable bowel syndrome) (Chronic) Nausea (Acute) Change in bowel habits (Acute) Anxiety and depression (Chronic) Escitalopram 10mg works well Medical History ADD (attention deficit disorder) Outgrew when became parent Infestation by Sarcoptes scabiei (07/15/14) Sterilization consult Surgical History History of wisdom tooth extraction Hx of bilateral salpingectomy (~92) Family History Mother Depression Asthma Father Diabetes Asthma Brother Depression Asthma Grandfather No problems noted. Grandfather No problems noted. Grandmother No problems noted. Grandmother No problems noted. Daughter No problems noted. Social History Smoking/Tobacco Use Status: Current every day Tobacco Type: cigarettes Smoking packs per day: 0.5 Smoking cigarettes per day: 10.0 Smoking risk assessment performed?: Yes Alcohol Intake: current Alcohol Intake frequency: holidays/special occasions only Alcohol type: hard liquor Drug use: Daily Substance use type: marijuana Adopted: No Caregiver/Support person: No Foster care: No Household members: significant other Housing: apartment Number of Children: 2 Do you need help understanding health information?: Always Sexually active: Yes Do you think of yourself as: straight/heterosexual Current gender identity: female Do you feel safe at home: Yes Do you feel safe in your relationship?: Yes History History 5 Para 2 Hx # Term Pregnancies 1 Multiple births 0 Hx # Pregnancies 0 Ectopic pregnancies 0 AB induced 0 Hx Number of Living Children 1 AB spontaneous 4 Past Pregnancies Del. Date GA/Weeks # Preg Succ Route Wgt Sex Labor Lgth Anesthesia Location Prov Complic 03/05/15 39 vaginal 3005.049 g Female 10 hrs regional [facility] Exam Narrative Exam Narrative: GEN: awake, alert, oriented 3. Pleasant, well groomed, interactive. HEAD: Normocephalic, atraumatic ENT: Mucous membranes moist, oropharynx unremarkable, External ear exam unremarkable EYES: PERRL, EOMI NECK: Full ROM, no NOLVIA, no menigismus CHEST/RESP: Nontender, clear to auscultation bilateral, no wheeze/rhonchi/rales CARDIOVASCULAR: RRR, no murmur, rub bolivar. 2+ Rad pulse bilateral ABDOMEN: Soft, nontender, no mass. +Bowel sounds Coccyx, distal tenderness. Normal sensation throughout lower extremity. EXT: Full ROM, no edema, no rash Neuro: Grossly normal neurologic exam, conversant, interactive. Psych: Speech fluent, thoughts congruent, affect normal Course Vital Signs Vital signs: Vital Signs Temperature 36.7 C 11/09/21 15:46 Pulse 73 11/09/21 15:46 Respiratory Rate 18 11/09/21 15:46 Blood Pressure 101/64 11/09/21 15:46 Temperature 36.7 C 11/09/21 15:46 Temperature Source Temporal Artery Scan 11/09/21 15:46 Pulse 73 11/09/21 15:46 Respiratory Rate 18 11/09/21 15:46 Respiratory Effort Non-Labored 11/09/21 15:48 Blood Pressure 101/64 11/09/21 15:46 Blood Pressure Position Sitting 11/09/21 15:46 Oxygen Delivery Method Room Air 11/09/21 15:46 Oxygen Flow Rate 0 11/09/21 15:46 Pain Level 10 11/09/21 15:46
== END 2021-11-09 16:45 | disposition home or self-care (01) ==
PROVIDERS: Emergency Provider Emergency Medicine; PCP Nurse Practitioner Family
DX: S32.2XXA Fracture of coccyx, initial encounter for closed fracture (principal); W01.0XXA Fall on same level from slipping, tripping and stumbling without subsequent striking against object, initial encounter; Y92.009 Unspecified place in unspecified non-institutional (private) residence as the place of occurrence of the external cause; F17.210 Nicotine dependence, cigarettes, uncomplicated
CPT/HCPCS: 99283; 72220; 99284

== ENCOUNTER 2021-12-09 17:01 | Emergency (ER) | payer MEDICAID, SELFPAY ==
[2021-12-09 17:17] VITALS: BP 137/90; PULSE 75; RESP 18; TEMP 36.1; O2SAT 99
== END 2021-12-09 17:53 ==
PROVIDERS: PCP Nurse Practitioner Family
DX: Z53.21 Procedure and treatment not carried out due to patient leaving prior to being seen by health care provider (principal)

== ENCOUNTER 2022-07-30 19:02 | Emergency (ER) | payer MEDICAID, SELFPAY ==
[2022-07-30 19:07] VITALS: BP 109/49; PULSE 74; RESP 20; TEMP 37.2; O2SAT 97
--- NOTE | 2022-07-30 19:39 | W.ED.GENAD ---
Discharge Plan Disposition Patient Disposition: Home Discharge Details Clinical Impression: Otitis media, Viral URI Primary Care Provider: Aurelia Huggins ED Provider: Neftali Aguirre Home Meds and New Rx's Prescriptions: New cefdinir 300 mg capsule 300 mg PO BID 5 Days Qty: 10 0RF meclizine 25 mg tablet 25 mg PO TID PRN (Reason: dizziness) Qty: 30 0RF No Action cyproheptadine 4 mg tablet 4 mg PO QHS Qty: 90 4RF escitalopram oxalate [Lexapro] 10 mg tablet 10 mg PO DAILY Qty: 90 3RF Rx Instructions: Restarting for anxiety 05/10/2020 fexofenadine 180 mg tablet 180 mg PO DAILY PRN (Reason: allergies) Qty: 90 3RF Rx Instructions: Allergies levothyroxine 75 mcg tablet 75 mcg PO DAILY Qty: 90 3RF albuterol sulfate [Ventolin HFA] 90 mcg/actuation HFA aerosol inhaler 1 - 2 puff IH Q4H PRN (Reason: shortness of breath or wheezing) Qty: 8 1RF Rx Instructions: PLEASE NO SUBSTITUTIONS; PROAIR INEFFECTIVE topiramate [Topamax] 25 mg tablet 25 mg PO BID Qty: 60 1RF Rx Instructions: Migraine prevention; dose increase 02/25/2020 esomeprazole magnesium [Nexium] 40 mg capsule,delayed release(DR/EC) 40 mg PO BID Qty: 60 3RF Rx Instructions: Heartburn gabapentin 100 mg capsule 100 mg PO BID Rx Instructions: For severe back/hip pain daily PRN. Ok to subs for tabs. hydrocodone-acetaminophen 5-325 mg tablet 1 tab PO Q8H PRN (Reason: pain) Qty: 6 0RF Rx Instructions: No additional Tylenol with this medication Discharge Instructions Instructions: Ear Infection (ED) Additional Instructions: You were seen in the emergency department for ear pain and dizziness. You may have a bacterial ear infection and we gave you some antibiotics to treat this. Could be a viral syndrome and your COVID and flu test were still pending and we will call you if these are positive. You can take the prescribed meclizine as needed for any dizziness that you may experience. Return for any worsening symptoms. Follow-up with your primary care doctor. Referrals: Aurelia Huggins NP [Primary Care Provider] - 1 week Discharge Data Discharge Physician: Neftali Aguirre Medical Decision Making 32-year-old female presents with ear pain nasal congestion among other symptoms. Likely has a viral URI. Will swab for COVID/flu/RSV but do not need to wait for the results. She could have a right otitis media and will give antibiotics to treat this. She is having some vertiginous symptoms that she says she sometimes gets with acute illness. We will give her a prescription for meclizine. No difficulty ambulating or trouble walking due to the dizziness and ambulated at the time of my evaluation. She denies any other symptoms. Doubt other causes. Will send prescription for possible right otitis media and told her to treat symptomatically with meclizine and Tylenol/ibuprofen. Will discharge with return precautions. Medical Records Medical records reviewed: Yes I reviewed the patient's medical records. HPI General Mode of arrival: ambulatory. Date/Time Provider Initiated Documentation: 07/30/22 19:15. Limitations to Documentation: no limitations. Information obtained by: patient. HPI Narrative: 32-year-old female presents with bilateral ear pain, congestion, and runny nose. Says this started a few days ago and has been getting worse. She says she gets chronic ear infections. She says the runny nose and congestion and bilateral lower pain initially was not bad. Now the bilateral lower pain is very bad. She is getting some vertigo that she sometimes get when she has a upper respiratory infection. She is denying any other complaints. No headache. Still able to walk. Denying any other complaints. No fevers or chills. No shortness of breath or fever or cough. Related Data Home Medications Medication Instructions Recorded Confirmed cyproheptadine 4 mg tablet 4 mg PO QHS #90 tabs 06/24/19 12/09/21 levothyroxine 75 mcg tablet 75 mcg PO DAILY #90 tabs 04/08/20 12/09/21 Ventolin HFA 90 mcg/actuation 1 - 2 puff inhalation Q4H PRN 04/26/20 12/09/21 aerosol inhaler (albuterol sulfate) shortness of breath or wheezing #8 grams escitalopram oxalate 10 mg tablet 10 mg PO DAILY #90 tabs 05/10/20 12/09/21 (Lexapro) fexofenadine 180 mg tablet 180 mg PO DAILY PRN allergies #90 05/10/20 12/09/21 tabs topiramate 25 mg tablet (Topamax) 25 mg PO BID #60 tabs 07/02/20 12/09/21 esomeprazole magnesium 40 mg 40 mg PO BID #60 caps 07/21/20 12/09/21 capsule,delayed release (Nexium) gabapentin 100 mg capsule 100 mg PO BID 11/09/21 12/09/21 hydrocodone 5 mg-acetaminophen 325 1 tab PO Q8H PRN pain #6 tabs 11/09/21 12/09/21 mg tablet cefdinir 300 mg capsule 300 mg PO BID 5 days #10 caps 07/30/22 meclizine 25 mg tablet 25 mg PO TID PRN dizziness #30 tabs 07/30/22 Previous Rx's Medication Instructions Recorded cyproheptadine 4 mg tablet 4 mg PO QHS #90 tabs 06/24/19 levothyroxine 75 mcg tablet 75 mcg PO DAILY #90 tabs 04/08/20 Ventolin HFA 90 mcg/actuation 1 - 2 puff inhalation Q4H PRN 04/26/20 aerosol inhaler (albuterol sulfate) shortness of breath or wheezing #8 grams escitalopram oxalate 10 mg tablet 10 mg PO DAILY #90 tabs 05/10/20 (Lexapro) fexofenadine 180 mg tablet 180 mg PO DAILY PRN allergies #90 05/10/20 tabs topiramate 25 mg tablet (Topamax) 25 mg PO BID #60 tabs 07/02/20 esomeprazole magnesium 40 mg 40 mg PO BID #60 caps 07/21/20 capsule,delayed release (Nexium) hydrocodone 5 mg-acetaminophen 325 1 tab PO Q8H PRN pain #6 tabs 11/09/21 mg tablet cefdinir 300 mg capsule 300 mg PO BID 5 days #10 caps 07/30/22 meclizine 25 mg tablet 25 mg PO TID PRN dizziness #30 tabs 07/30/22 Allergies Allergy/AdvReac Type Severity Reaction Status Date / Time shellfish derived Allergy Severe Throat Verified 02/22/22 12:32 closes up latex Allergy Intermediate Skin Rash Verified 02/22/22 12:32 Penicillins Allergy Intermediate URTICARIA, Verified 02/22/22 12:32 ROOM SPINS amoxicillin trihydrate Allergy Unknown unknown Verified 02/22/22 12:32 [From Augmentin] metronidazole [From Flagyl] Allergy Unknown HIVES- RED Verified 02/22/22 12:32 BLOTCHES sumatriptan succinate AdvReac Severe chest pain Verified 02/22/22 12:32 [From Imitrex] tuna fish Allergy Unknown throat Uncoded 02/22/22 12:32 closes up B-2 AdvReac Uncoded 02/22/22 12:32 General Stated Complaint: EarProblem HUY: 4 Review of Systems Constitutional Constitutional: Denies chills, Denies fever(s) and Denies headache(s) Eyes Eyes: Denies change in vision ENT Ears, Nose, Mouth, and Throat: Reports vertigo, Reports otalgia, Denies headache(s), Reports nasal congestion, Denies odynophagia, Reports sinus pain and Reports sinus pressure Cardiovascular Cardiovascular: Denies chest pain and Denies dyspnea Respiratory Respiratory: Denies dyspnea Gastrointestinal Gastrointestinal: Denies abdominal pain, Denies diarrhea, Denies nausea, Denies odynophagia and Denies vomiting Genitourinary Genitourinary: Denies dysuria Musculoskeletal Musculoskeletal: Denies myalgias Integumentary/Breasts Skin/Breast: Denies changing lesions Neurologic Neurologic: Denies behavioral changes, Reports vertigo and Denies headache(s) Psychiatric Psychiatric: Denies behavioral changes Endocrine Endocrine: Denies heat intolerance Hematologic/Lymphatic Hematologic/Lymphatic: Denies lymphadenopathy PFSH All Active Problems (Updated 07/30/22 @ 19:51 by Neftali Aguirre MD) Otitis media (Acute) Viral URI (Acute) Asthma, chronic (Acute) Thyroid disorder (Acute) At risk for sleep apnea (Acute) Migraine (Chronic) [facility] Cognitive developmental delay (Chronic) [facility] Development Program Guardian (2019) Maryam Chen (see chart note 01/03/2019) Guardian terminated 03/31[address]. Allergic rhinitis (Acute) Posttraumatic stress disorder (Chronic 08/18/11) GERD (gastroesophageal reflux disease) (Chronic) Failed Omeprazole, Failed Lansoprazole, Failed Pepcid Insertion of implantable subdermal contraceptive (Acute 03/08/15) Nicotine dependence (Chronic) 8 cigs/day Cannabis dependence (Chronic) Daily Hypothyroid (Chronic) Stress incontinence (Acute) Ovarian cyst (Acute) Dysmenorrhea (Acute) Abnormal MRI, thoracic spine (Acute[place] [facility] [place] [facility] [place] Menorrhagia (Acute) IBS (irritable bowel syndrome) (Chronic) Nausea (Acute) Change in bowel habits (Acute) Anxiety and depression (Chronic) Escitalopram 10mg works well Medical History ADD (attention deficit disorder) Outgrew when became parent Infestation by Sarcoptes scabiei (07/15/14) Sterilization consult Surgical History History of wisdom tooth extraction Hx of bilateral salpingectomy (~92) Family History Mother Depression Asthma Father Diabetes Asthma Brother Depression Asthma Grandfather No problems noted. Grandfather No problems noted. Grandmother No problems noted. Grandmother No problems noted. Daughter No problems noted. Social History Smoking/Tobacco Use Status: Current every day Tobacco Type: cigarettes Smoking packs per day: 0.5 Smoking cigarettes per day: 10.0 Quit status: not considering quitting Second Hand Exposure: Yes Smoking risk assessment performed?: Yes Alcohol Intake: never Drug use: Daily Substance use type: marijuana Adopted: No Caregiver/Support person: No Foster care: No Household members: significant other Housing: house Number of Children: 2 Communication Needs: Corrective Lenses Do you need help understanding health information?: Never Pets and animals: Yes Pets and animals: cat(s) and dog(s) Sexually active: No Do you think of yourself as: straight/heterosexual Current gender identity: female What is your relationship status?: never How often do you talk on the phone with friends or family?: never How often do you get together with friends or relatives?: decline to answer How often do you attend druze or gnosticist services?: decline to answer Do you belong to any clubs or organized social groups?: no Panel score (0-1 are the most socially isolated patients): 0 What type of physical activity do you participate in: walking Duration: 15-30 minutes/day Frequency: daily Katelyn/Jain: No preference Special katelyn needs: No Seatbelt use: always Drive intox or ride w/intox 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 Date GA/Weeks # Preg Succ Route Wgt Sex Labor Lgth Anesthesia Location [facility] 03/05/15 39 vaginal 3005.049 g Female 10 hrs regional [facility] Exam Const General: cooperative Nutritional Appearance: average body habitus Orientation: alert, awake and oriented x3 HENMT Head: normal to inspection Ears: external ears normal Mouth: moist mucous membranes Other: Redness and bulging to the right TM. Left TM unremarkable. Significant congestion and runny nose on my evaluation. Eyes Pupils: PERRL EOM: EOM intact bilaterally and No nystagmus Neck Neck: full ROM and no tracheal deviation Chest Chest: normal inspection of the chest Resp Auscultation: clear to auscultation bilaterally Cardio Rate: regular rate Rhythm: regular rhythm GI Inspection: normal to inspection Palpation: soft, no guarding, not rigid and nontender Back/Spine/Pelvis Back: No no CVA tenderness Thoracic/Lumbar Spine: thoracic and lumbar spine normal to inspection Skin General skin exam: no rashes or lesions noted Neuro General: patient alert, patient awake and patient oriented x3 Cranial Nerves: CN's II-XI intact bilaterally, PERRL and no nystagmus Cognition: normal cognition Motor: muscle tone normal throughout and strength 5/5 throughout Sensory Exam: no sensory deficits noted Extrem General: normal to inspection Course Vital Signs Vital signs: Vital Signs Temperature 37.2 C 07/30/22 19:07 Pulse 74 07/30/22 19:07 Respiratory Rate 20 07/30/22 19:07 Blood Pressure 109/49 L 07/30/22 19:07 Pulse Oximetry 97 07/30/22 19:07 Temperature 37.2 C 07/30/22 19:07 Temperature Source Temporal Artery Scan 07/30/22 19:07 Pulse 74 07/30/22 19:07 Respiratory Rate 20 07/30/22 19:07 Blood Pressure 109/49 L 07/30/22 19:07 Pulse Oximetry 97 07/30/22 19:07
[2022-07-30] MEDS: Cefdinir 300 MG CAP PO (19:58)
[2022-07-30 20:27] LABS: COVID-19 PCR Negative (Negative); Influenza A PCR Negative (Negative); Influenza B PCR Negative (Negative); RSV PCR Negative (Negative)
[2022-07-30 20:34] LABS: Source Nasopharynx
== END 2022-07-30 20:02 | disposition home or self-care (01) ==
PROVIDERS: Emergency Provider Student in an Organized Health Care Education/Training Program; PCP Nurse Practitioner Family
DX: R05.9 Cough, unspecified (principal); R09.81 Nasal congestion; R42 Dizziness and giddiness; H66.91 Otitis media, unspecified, right ear; J06.9 Acute upper respiratory infection, unspecified
CPT/HCPCS: 87637; 99283

== ENCOUNTER 2022-08-10 21:37 | Emergency (ER) | payer MEDICAID, SELFPAY ==
[2022-08-10 21:43] VITALS: BP 100/64; PULSE 82; RESP 16; TEMP 36.6; O2SAT 99
--- NOTE | 2022-08-10 22:41 | ED.GENADUL_ITS ---
Discharge Plan Disposition Patient Disposition: Home Discharge Details Clinical Impression: Laceration of finger of right hand Primary Care Provider: Aurelia Huggins ED Provider: Mele Melendez Home Meds and New Rx's Prescriptions: No Action cyproheptadine 4 mg tablet 4 mg PO QHS Qty: 90 4RF escitalopram oxalate [Lexapro] 10 mg tablet 10 mg PO DAILY Qty: 90 3RF Rx Instructions: Restarting for anxiety 05/10/2020 fexofenadine 180 mg tablet 180 mg PO DAILY PRN (Reason: allergies) Qty: 90 3RF Rx Instructions: Allergies levothyroxine 75 mcg tablet 75 mcg PO DAILY Qty: 90 3RF albuterol sulfate [Ventolin HFA] 90 mcg/actuation HFA aerosol inhaler 1 - 2 puff IH Q4H PRN (Reason: shortness of breath or wheezing) Qty: 8 1RF Rx Instructions: PLEASE NO SUBSTITUTIONS; PROAIR INEFFECTIVE topiramate [Topamax] 25 mg tablet 25 mg PO BID Qty: 60 1RF Rx Instructions: Migraine prevention; dose increase 02/25/2020 esomeprazole magnesium [Nexium] 40 mg capsule,delayed release(DR/EC) 40 mg PO BID Qty: 60 3RF Rx Instructions: Heartburn gabapentin 100 mg capsule 100 mg PO BID Rx Instructions: For severe back/hip pain daily PRN. Ok to subs for tabs. hydrocodone-acetaminophen 5-325 mg tablet 1 tab PO Q8H PRN (Reason: pain) Qty: 6 0RF Rx Instructions: No additional Tylenol with this medication meclizine 25 mg tablet 25 mg PO TID PRN (Reason: dizziness) Qty: 30 0RF Discharge Instructions Instructions: Finger Laceration (ED) Additional Instructions: At this time your finger laceration does not appear infected and given the timeframe of when this occurred it is not a candidate for any repair. Continue to monitor symptoms for signs of infection and return immediately if these occur otherwise you may continue to take [id number] pain medication as needed for discomfort, keep wound clean and dry, and follow-up with your primary care provider if not healing over the next 1 to 2 weeks. Referrals: Aurelia Huggins NP [Primary Care Provider] - Discharge Data Discharge Date/Time-TO BE ENTERED AT DEPARTURE: 08/10/22 22:52 Medical Decision Making Patient presenting the emergency department for chief complaint of finger laceration. Patient reports yesterday evening while doing dishes she cut her right lateral aspect of her fifth digit. Patient denies any other injury or trauma. She did have some improvement today but then struck it causing significant pain and discomfort which is causing her to come to the emergency department. Patient states she feels she is up-to-date on her tetanus. Physical exam shows a superficial laceration to the lateral aspect of the fifth digit just lateral to the nail. Exam is otherwise unremarkable. Finger has full range of motion normal cap refill and sensation intact. Given timeframe I do not feel that wound is in need of any repair. Acute wound care was provided and patient given acetaminophen along with finger splint to protect from further axonal trauma. Patient encouraged to watch for signs of infection and return immediately if these occur. After discussion of diagnosis and plan of care patient has no further needs, questions, or concerns and states clear understanding to return to the emergency department for any worsening symptoms. This documentation was generated using [employer] dictation system, please disregard any oddities of phrase or misspellings. HPI General Mode of arrival: ambulatory . Date/Time Provider Initiated Documentation: 08/10/22 21:52 . Limitations to Documentation: no limitations . Information obtained by: patient and RN notes reviewed . History of Present Illness 32 year old F presents to the emergency department with the chief complaint of Finger laceration, described as moderate, Quality is described as sharp, and is localized to the right and upper extremity. Patient started experiencing this day(s) (1) and it has been constant. No relieving factors improve symptom(s), No exacerbating factors reported . Patient notes no other symptoms.. Patient did receive the following treatments prior to arrival, none Related Data Home Medications Medication Instructions Recorded Confirmed cyproheptadine 4 mg tablet 4 mg PO QHS #90 tabs 06/24/19 08/10/22 levothyroxine 75 mcg tablet 75 mcg PO DAILY #90 tabs 04/08/20 08/10/22 Ventolin HFA 90 mcg/actuation 1 - 2 puff inhalation Q4H PRN 04/26/20 08/10/22 aerosol inhaler (albuterol sulfate) shortness of breath or wheezing #8 grams escitalopram oxalate 10 mg tablet 10 mg PO DAILY #90 tabs 05/10/20 08/10/22 (Lexapro) fexofenadine 180 mg tablet 180 mg PO DAILY PRN allergies #90 05/10/20 08/10/22 tabs topiramate 25 mg tablet (Topamax) 25 mg PO BID #60 tabs 07/02/20 08/10/22 esomeprazole magnesium 40 mg 40 mg PO BID #60 caps 21 08/10/22 capsule,delayed release (Nexium) gabapentin 100 mg capsule 100 mg PO BID 11/09/21 08/10/22 hydrocodone 5 mg-acetaminophen 325 1 tab PO Q8H PRN pain #6 tabs 11/09/21 08/10/22 mg tablet meclizine 25 mg tablet 25 mg PO TID PRN dizziness #30 tabs 07/30/22 08/10/22 Previous Rx's Medication Instructions Recorded cyproheptadine 4 mg tablet 4 mg PO QHS #90 tabs 06/24/19 levothyroxine 75 mcg tablet 75 mcg PO DAILY #90 tabs 04/08/20 Ventolin HFA 90 mcg/actuation 1 - 2 puff inhalation Q4H PRN 04/26/20 aerosol inhaler (albuterol sulfate) shortness of breath or wheezing #8 grams escitalopram oxalate 10 mg tablet 10 mg PO DAILY #90 tabs 05/10/20 (Lexapro) fexofenadine 180 mg tablet 180 mg PO DAILY PRN allergies #90 05/10/20 tabs topiramate 25 mg tablet (Topamax) 25 mg PO BID #60 tabs 07/02/20 esomeprazole magnesium 40 mg 40 mg PO BID #60 caps 07/21/20 capsule,delayed release (Nexium) hydrocodone 5 mg-acetaminophen 325 1 tab PO Q8H PRN pain #6 tabs 11/09/21 mg tablet meclizine 25 mg tablet 25 mg PO TID PRN dizziness #30 tabs 07/30/22 Allergies Allergy/AdvReac Type Severity Reaction Status Date / Time shellfish derived Allergy Severe Throat Verified 08/10/22 21:47 closes up latex Allergy Intermediate Skin Rash Verified 08/10/22 21:47 Penicillins Allergy Intermediate URTICARIA, Verified 08/10/22 21:47 ROOM SPINS amoxicillin trihydrate Allergy Unknown unknown Verified 08/10/22 21:47 [From Augmentin] metronidazole [From Flagyl] Allergy Unknown HIVES- RED Verified 08/10/22 21:47 BLOTCHES sumatriptan succinate AdvReac Severe chest pain Verified 08/10/22 21:47 [From Imitrex] tuna fish Allergy Unknown throat Uncoded 08/10/22 21:47 closes up B-2 AdvReac Uncoded 08/10/22 21:47 General Stated Complaint: Laceration HUY: 4 Review of Systems Constitutional Constitutional: Denies fever(s) Musculoskeletal Musculoskeletal: Reports as per HPI, Denies arthralgias, Denies joint swelling and Denies limited range of motion Integumentary/Breasts Skin/Breast: Reports as per HPI, Denies erythema, Denies rash and Reports wounds [facility] All Active Problems Otitis media (Acute) Viral URI (Acute) Laceration of finger of right hand (Acute) Asthma, chronic (Acute) Thyroid disorder (Acute) At risk for sleep apnea (Acute) Migraine (Chronic) [facility] Cognitive developmental delay (Chronic) [facility] Development Program Guardian (2019) Maryam Chen (see chart note 01/03/2019) Guardian terminated 03/31/[address]. Allergic rhinitis (Acute) Posttraumatic stress disorder (Chronic 08/18/11) GERD (gastroesophageal reflux disease) (Chronic) Failed Omeprazole, Failed Lansoprazole, Failed Pepcid Insertion of implantable subdermal contraceptive (Acute 03/08/15) Nicotine dependence (Chronic) 8 cigs/day Cannabis dependence (Chronic) Daily Hypothyroid (Chronic) Stress incontinence (Acute) Ovarian cyst (Acute) Dysmenorrhea (Acute) Abnormal MRI, thoracic spine (Acute) [facility] [place], f/u OV with [facility] [place] Neurosurg pending Menorrhagia (Acute) IBS (irritable bowel syndrome) (Chronic) Nausea (Acute) Change in bowel habits (Acute) Anxiety and depression (Chronic) Escitalopram 10mg works well Medical History ADD (attention deficit disorder) Outgrew when became parent Infestation by Sarcoptes scabiei (07/15/14) Sterilization consult Surgical History History of wisdom tooth extraction Hx of bilateral salpingectomy (~92) Family History Mother Depression Asthma Father Diabetes Asthma Brother Depression Asthma Grandfather No problems noted. Grandfather No problems noted. Grandmother No problems noted. Grandmother No problems noted. Daughter No problems noted. Social History Smoking/Tobacco Use Status: Current every day Tobacco Type: cigarettes Smoking packs per day: 0.5 Smoking cigarettes per day: 10.0 Quit status: not considering quitting Second Hand Exposure: Yes Smoking risk assessment performed?: Yes Alcohol Intake: never Drug use: Daily Substance use type: marijuana Adopted: No Caregiver/Support person: No Foster care: No Household members: significant other Housing: house Number of Children: 2 Communication Needs: Corrective Lenses Do you need help understanding health information?: Never Pets and animals: Yes Pets and animals: cat(s) and dog(s) Sexually active: No Do you think of yourself as: straight/heterosexual Current gender identity: female What is your relationship status?: never How often do you talk on the phone with friends or family?: never How often do you get together with friends or relatives?: decline to answer How often do you attend hinduism or scientology services?: decline to answer Do you belong to any clubs or organized social groups?: no Panel score (0-1 are the most socially isolated patients): 0 What type of physical activity do you participate in: walking Duration: 15-30 minutes/day Frequency: daily Katelyn/Church: No preference Special katelyn needs: No Seatbelt use: always Drive intox or ride w/intox drivers license examiner: No Do you feel safe at home: Yes Do you feel safe in your relationship?: Yes History History 5 Para 2 Hx # Term Pregnancies 1 Multiple births 0 Hx # Pregnancies 0 Ectopic pregnancies 0 AB induced 0 Hx Number of Living Children 1 AB spontaneous 4 Past Pregnancies Del. Date GA/Weeks # Preg Succ Route Wgt Sex Labor Lgth Anesth esia Location [facility] 03/05/15 39 vaginal 3005.049 g Female 10 hrs regional [facility] Exam Const General: cooperative, no acute distress and not ill appearing Orientation: alert, awake and oriented x3 HENMT Mouth: moist mucous membranes Resp Effort & Inspection: normal respiratory effort, able to speak in complete sentences and no respiratory distress Skin General skin exam: no rashes or lesions noted Neuro General: patient alert, patient awake, patient oriented x3, moves all extremities and no focal motor deficits Sensory Exam: no sensory deficits noted Extrem General: normal exam except as noted Right upper extremity: hand Details: laceration 5th digit ulnar aspect distal Details: linear, superficial, with motor nerve function intact and with sensation intact; not actively bleeding and no pulsatile bleeding Course Vital Signs Vital signs: Vital Signs Temperature 36.6 C 08/10/22 21:43 Pulse 82 08/10/22 21:43 Respiratory Rate 16 08/10/22 21:43 Blood Pressure 100/64 08/10/22 21:43 Pulse Oximetry 99 08/10/22 21:43 Temperature 36.6 C 08/10/22 21:43 Temperature Source Oral 08/10/22 21:43 Pulse 82 08/10/22 21:43 Respiratory Rate 16 08/10/22 21:43 Respiratory Effort Normal 08/10/22 21:43 Blood Pressure 100/64 08/10/22 21:43 Blood Pressure Position Sitting 08/10/22 21:43 Pulse Oximetry 99 08/10/22 21:43 Oxygen Delivery Method Room Air 08/10/22 21:43 Oxygen Flow Rate 0 08/10/22 21:43 Pain Level 8 08/10/22 21:43
== END 2022-08-10 22:52 | disposition home or self-care (01) ==
PROVIDERS: Emergency Provider Nurse Practitioner Family; PCP Nurse Practitioner Family
DX: S61.216A Laceration without foreign body of right little finger without damage to nail, initial encounter (principal); W26.9XXA Contact with unspecified sharp object(s), initial encounter
CPT/HCPCS: 99282; 99283

== ENCOUNTER 2022-09-13 22:11 | Emergency (ER) | payer MEDICAID, SELFPAY ==
--- NOTE | 2022-09-13 22:00 | RT.EKG_ITS ---
APPROVED REPORT Exam: Resting ECG Reason for Exam: dizzy Patient Location: E HR:69 bpm ECG Measurements Heart Rate 69 AXIS NH 149 P 61 QRSd 76 QRS 35 QT 371 T 29 QTc 398 Conclusion Sinus rhythm...normal P axis, V-rate 60- 99
[2022-09-13 22:14] VITALS: BP 113/80; PULSE 58; RESP 18; TEMP 36.4; O2SAT 100
--- NOTE | 2022-09-13 22:15 | DI.CT_ITS ---
Exam(s) CT NECK W EXAM: CT NECK W CLINICAL HISTORY: left sided neck pain/swelling. TECHNIQUE: Imaging Protocol: Axial computed tomography images with coronal and sagittal reformatted images were created and reviewed. CONTRAST MATERIAL: Intravenous: Omnipaque 350 Contrast volume:100mL COMPARISON: CT HEAD NECK FACIAL WO from 09/03/[address] CERVICAL SPINE WO from 12/20/2019 FINDINGS: The examination is limited due to patient motion artifact. Orbits and orbital soft tissues: Within normal limits. Visualized paranasal sinuses: Within normal limits. Nasopharynx: Within normal limits. Oropharynx: Within normal limits. Hypopharynx: Mild enlargement of the adenoids bilaterally. Larynx: Within normal limits. Retropharyngeal space: Within normal limits. Parotids/submandibular: Within normal limits. Thyroid gland: Within normal limits. Lymphadenopathy: There is scattered lymph nodes seen along the level one to level three all measurin g less than 8 mm in short axis diameter which are physiologic in nature. Trachea: Within normal limits. Lung apices: Within normal limits. Bones: Within normal limits for the patient's age. Carotids/Jugular: Within normal limits. Soft tissues: Within normal limits. IMPRESSION: Enlarged adenoids bilaterally suggesting infectious/inflammatory process. No abscess is identified. RADIATION DOSE DELIVERED: Total DLP Total DLP DATA REPOSITORY: All CT scans at this facility are submitted to the National Radiology Data Registry (NRDR) Dose Index Registry (DIR) with the [employer] (A[employer]). RADIATION OPTIMIZATION: All CT scans at this facility use at least one of these dose optimization te chniques: automated exposure control; mA and/or kV adjustment per patient size (includes targeted exa ms where dose is matched to clinical indication); or iterative reconstruction.
--- NOTE | 2022-09-13 22:32 | ED.GENADUL_ITS ---
Discharge Plan Discharge Details Chief Complaint: GenMedical Clinical Impression: Throat discomfort Primary Care Provider: Aurelia Huggins ED Provider: Vamsi Aguirre Home Meds and New Rx's Prescriptions: No Action escitalopram oxalate [Lexapro] 10 mg tablet 10 mg PO DAILY Qty: 90 3RF Rx Instructions: Restarting for anxiety 05/10/2020 gabapentin 100 mg capsule 100 mg PO TID Qty: 270 3RF Rx Instructions: For severe back/hip pain daily PRN. Ok to subs for tabs. fexofenadine 180 mg tablet 180 mg PO DAILY PRN (Reason: allergies) Qty: 90 3RF Rx Instructions: Allergies levothyroxine 75 mcg tablet 75 mcg PO DAILY Qty: 90 3RF albuterol sulfate [Ventolin HFA] 90 mcg/actuation HFA aerosol inhaler 1 - 2 puff IH Q4H PRN (Reason: shortness of breath or wheezing) Qty: 8 1RF Rx Instructions: PLEASE NO SUBSTITUTIONS; PROAIR INEFFECTIVE esomeprazole magnesium [Nexium] 40 mg capsule,delayed release(DR/EC) 40 mg PO DAILY Qty: 90 3RF Rx Instructions: Heartburn meclizine 25 mg tablet 25 mg PO TID PRN (Reason: dizziness) Qty: 30 0RF Medical Decision Making 32 yo female comes in with 3 days of feeling as though her throat is swollen and has pain. Denies fevers, chills, dyspnea, chest pain, difficulty swallowing. She arrives stable, speaking in full sentences. She states her neck is more swollen then normal though on exam I do not appreciate any swelling on exam. She has normal posterior pharynx, midline uvula, no restricted neck movements, she is tender to palpation on the left side of the neck with even soft palpation. Unclear etiology for her symptoms, given her degree of pain will obtain ct of the neck to evaluate for possible retropharyngeal abscess though this seems unlikely based on exam. pt signed out to oncoming provider pending labs and imaging results Differential Diagnosis Differential Diagnosis: retropharyngeal abscess, pharyngitis ECG Data Attestation: I personally reviewed and interpreted this ECG (s) as follows: Prior ECG tracings: available for review Interpretation: sinus rate of 69 pr 149 no stemi HPI General Mode of arrival: ambulatory . Date/Time Provider Initiated Documentation: 09/13/22 22:14 . Limitations to Documentation: no limitations . Information obtained by: patient . History of Present Illness 32 year old F presents to the emergency department with the chief complaint of left sided neck swelling and pain, described as moderate, Patient started experiencing this day(s) (3) and it has been constant. No relieving factors improve symptom(s), No exacerbating factors reported . Patient notes denies fever/chills. Patient did receive the following treatments prior to arrival, none Related Data Home Medications Medication Instructions Recorded Confirmed levothyroxine 75 mcg tablet 75 mcg PO DAILY #90 tabs 04/08/20 08/15/22 Ventolin HFA 90 mcg/actuation 1 - 2 puff inhalation Q4H PRN 04/26/20 08/15/22 aerosol inhaler (albuterol sulfate) shortness of breath or wheezing #8 grams meclizine 25 mg tablet 25 mg PO TID PRN dizziness #30 tabs 07/30/22 08/15/22 escitalopram oxalate 10 mg tablet 10 mg PO DAILY #90 tabs 08/15/22 08/15/22 (Lexapro) fexofenadine 180 mg tablet 180 mg PO DAILY PRN allergies #90 08/15/22 08/15/22 tabs gabapentin 100 mg capsule 100 mg PO TID #270 caps 08/15/22 08/15/22 esomeprazole magnesium 40 mg 40 mg PO DAILY #90 caps 08/24/22 capsule,delayed release (Nexium) Previous Rx's Medication Instructions Recorded levothyroxine 75 mcg tablet 75 mcg PO DAILY #90 tabs 04/08/20 Ventolin HFA 90 mcg/actuation 1 - 2 puff inhalation Q4H PRN 04/26/20 aerosol inhaler (albuterol sulfate) shortness of breath or wheezing #8 grams meclizine 25 mg tablet 25 mg PO TID PRN dizziness #30 tabs 07/30/22 escitalopram oxalate 10 mg tablet 10 mg PO DAILY #90 tabs 08/15/22 (Lexapro) fexofenadine 180 mg tablet 180 mg PO DAILY PRN allergies #90 08/15/22 tabs gabapentin 100 mg capsule 100 mg PO TID #270 caps 08/15/22 esomeprazole magnesium 40 mg 40 mg PO DAILY #90 caps 08/24/22 capsule,delayed release (Nexium) Allergies Allergy/AdvReac Type Severity Reaction Status Date / Time shellfish derived Allergy Severe Throat Verified 08/15/22 09:32 closes up latex Allergy Intermediate Skin Rash Verified 08/15/22 09:32 Penicillins Allergy Intermediate URTICARIA, Verified 08/15/22 09:32 ROOM SPINS amoxicillin trihydrate Allergy Unknown unknown Verified 08/15/22 09:32 [From Augmentin] metronidazole [From Flagyl] Allergy Unknown HIVES- RED Verified 08/15/22 09:32 BLOTCHES sumatriptan succinate AdvReac Severe chest pain Verified 08/15/22 09:32 [From Imitrex] tuna fish Allergy Unknown throat Uncoded 08/15/22 09:32 closes up B-2 AdvReac Uncoded 08/15/22 09:32 General Stated Complaint: GenMedical HUY: 3 Review of Systems All systems reviewed & are unremarkable except as noted in HPI and below Constitutional Constitutional: Denies chills, Denies fever(s) and Denies weakness Cardiovascular Cardiovascular: Denies chest pain and Denies dyspnea Respiratory Respiratory: Denies cough and Denies dyspnea Gastrointestinal Gastrointestinal: Denies abdominal pain, Denies nausea and Denies vomiting Genitourinary Genitourinary: Denies dysuria Musculoskeletal Musculoskeletal: Denies joint swelling Integumentary/Breasts Skin/Breast: Denies rash Neurologic Neurologic: Denies weakness FOR[facility], [facility] All Active Problems (Updated 09/13/22 @ 22:39 by Vamsi Aguirre MD) Throat discomfort (Acute) Asthma, chronic (Acute) Thyroid disorder (Acute) At risk for sleep apnea (Acute) Migraine (Chronic) [facility] Cognitive developmental delay (Chronic) [facility] Development Program Guardian (2019) Maryam Chen (see chart note 01/03/2019) Guardian terminated 03/31/[address]. Allergic rhinitis (Acute) Posttraumatic stress disorder (Chronic 08/18/11) GERD (gastroesophageal reflux disease) (Chronic) Failed Omeprazole, Failed Lansoprazole, Failed Pepcid Insertion of implantable subdermal contraceptive (Acute 03/08/15) Nicotine dependence (Chronic) 8 cigs/day Cannabis dependence (Chronic) Daily Hypothyroid (Chronic) Stress incontinence (Acute) Ovarian cyst (Acute) Dysmenorrhea (Acute) Abnormal MRI, thoracic spine (Acute) [facility] 03/26/2019, f/u OV with [facility] Neurosurg pending Menorrhagia (Acute) IBS (irritable bowel syndrome) (Chronic) Nausea (Acute) Change in bowel habits (Acute) Anxiety and depression (Chronic) Escitalopram 10mg works well Medical History ADD (attention deficit disorder) Outgrew when became parent Infestation by Sarcoptes scabiei (07/15/14) Sterilization consult Surgical History History of wisdom tooth extraction Hx of bilateral salpingectomy (~92) Family History Mother Depression Asthma Father Diabetes Asthma Brother Depression Asthma Grandfather No problems noted. Grandfather No problems noted. Grandmother No problems noted. Grandmother No problems noted. Daughter No problems noted. Social History (Updated 08/18/22 @ 12:03 by Heydi Mccord) Smoking/Tobacco Use Status: Current every day Tobacco Type: cigarettes Smoking packs per day: 0.5 Smoking cigarettes per day: 10.0 Quit status: not considering quitting Second Hand Exposure: Yes Smoking risk assessment performed?: Yes Alcohol Intake: never Drug use: Daily Substance use type: marijuana Adopted: No Caregiver/Support person: No Foster care: No Household members: significant other Housing: house Number of Children: 2 Communication Needs: Corrective Lenses Do you need help understanding health information?: Never Pets and animals: Yes Pets and animals: cat(s) and dog(s) Sexually active: No Do you think of yourself as: straight/heterosexual Current gender identity: female What is your relationship status?: never How often do you talk on the phone with friends or family?: never How often do you get together with friends or relatives?: decline to answer How often do you attend voodoo or yazidism services?: decline to answer Do you belong to any clubs or organized social groups?: no Panel score (0-1 are the most socially isolated patients): 0 What type of physical activity do you participate in: walking Duration: 30-45 minutes/day Frequency: daily Katelyn/Spiritism: No preference Special katelyn needs: No Seatbelt use: always Drive intox or ride w/intox 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 Date GA/Weeks # Preg Succ Route Wgt Sex Labor Lgth Anesth esia Location [facility] 03/05/15 39 vaginal 3005.049 g Female 10 hrs regional [facility] Exam Const General: no acute distress Orientation: alert HENMT Head: normal to inspection and no palpable skull fracture Ears: external ears normal and TM's normal bilaterally General nose exam: external nose normal Mouth: moist mucous membranes Eyes General: appearance normal, both eyes and all related structures Neck Neck: normal visual inspection Resp Effort & Inspection: normal respiratory effort and able to speak in complete sentences Auscultation: clear to auscultation bilaterally Cardio Jugular venous pressure: no JVD Rate: regular rate Heart Sounds: no murmurs Skin General skin exam: no rashes or lesions noted Neuro General: patient alert and patient oriented x3 Extrem General: normal to inspection Psych Mental Status: mental status grossly normal Course Vital Signs Vital signs: Vital Signs Temperature 36.4 C L 09/13/22 22:14 Pulse 58 L 09/13/22 22:14 Respiratory Rate 18 09/13/22 22:14 Blood Pressure 113/80 09/13/22 22:14 Pulse Oximetry 100 09/13/22 22:14 Temperature 36.4 C L 09/13/22 22:14 Temperature Source Temporal Artery Scan 09/13/22 22:14 Pulse 58 L 09/13/22 22:14 Respiratory Rate 18 09/13/22 22:14 Blood Pressure 113/80 09/13/22 22:14 Pulse Oximetry 100 09/13/22 22:14 Oxygen Delivery Method Room Air 09/13/22 22:14 Oxygen Flow Rate 0 09/13/22 22:14
[2022-09-13 22:36] LABS: Abs Immature Grans 0.02 10^3/uL (0.0-0.06); Absolute Basophil Count 0.02 10^3/uL (0.0-0.2); Absolute Eosinophil Count 0.14 10^3/uL (0.0-0.7); Absolute Lymphocyte Count 2.41 10^3/uL (1.2-3.4); Absolute Monocyte Count 0.32 10^3/uL (0.1-0.8); Absolute Neutrophil Count 4.92 10^3/uL (1.2-6.7); Basophils % 0.3; Eosinophils % 1.8; HCT 38.2 % (36.0-46.0); HGB 12.8 g/dL (11.2-15.7); Immature Grans % 0.3; Lymphocytes % 30.8; MCH 31.8 pg (27.0-33.0); MCHC 33.5 % (32.0-36.0); MCV 95 fL (80-95); MPV 10.4 fL (8.0-11.0); Monocytes % 4.1; Neutrophils % 62.7; Platelet Count 375 10^3/uL (130-400); RBC 4.02 10^6/uL (3.93-5.22); RDW 13.5 % (11.7-14.6); RDW-SD 47.1 fL; WBC 7.83 10^3/uL (4.4-10.8)
[2022-09-13] MEDS: Normal Saline - Diluent 50 ML VIAL IJ (22:43)
[2022-09-13] MEDS: Normal Saline Flush 10 ML SYR IVP (22:43)
[2022-09-13] MEDS: Omnipaque 350 MG/ML 100 ML BTL IJ (22:44)
[2022-09-13 22:59] LABS: ALT 11 U/L (14-59); AST 11 U/L (15-37); Albumin 3.8 g/dL (3.4-5.0); Alkaline Phosphatase 63 U/L (46-116); BUN 15 mg/dL (7-18); Bilirubin, Total 0.2 mg/dL (0.2-1.0); CREATININE 0.8 mg/dL (0.55-1.02); Calcium 8.9 mg/dL (8.5-10.1); Chloride 106 mmol/L (98-107); Estimated GFR 101.59 (mL/min/1.73m2); Glucose 92 mg/dL (74-106); Potassium 3.9 mmol/L (3.5-5.1); Sodium 141 mmol/L (136-145); Total Protein 7.5 g/dL (6.4-8.2)
--- NOTE | 2022-09-13 23:26 | DI.VRAD_ITS ---
PROCEDURE INFORMATION: Exam: CT Neck With Contrast Exam date and time: 09/13/2022 22:50 Age: 32 years old Clinical indication: Other: Left sided neck pain/swelling TECHNIQUE: Imaging protocol: Computed tomography of the neck with contrast. Radiation optimization: All CT scans at this facility use at least one of these dose optimization techniques: automated exposure control; mA and/or kV adjustment per patient size (includes targeted exams where dose is matched to clinical indication); or iterative reconstruction. Contrast material: OMNI 350; Contrast volume: 100 ml; Contrast route: INTRAVENOUS (IV); COMPARISON: CT CERVICAL SPINE WO 12/20/2019 20:26 FINDINGS: Pharynx: Moderate to severe symmetric inflammation and enlargement of the adenoids with mucosal hyperemia. Tonsils are mildly symmetrically inflamed. No collections. Motion artifact affecting assessment of the oropharynx. Larynx: Motion artifact affects assessment of the larynx without gross lesions or collections. Prevertebral and retropharyngeal spaces: Unremarkable. Salivary glands: Normal. Glands are normal in size. Thyroid: No enlarged or calcified nodules. Lymph nodes: Motion artifact with suspected reactive jugulodigastric adenopathy, upper cervical chain not well assessed bilaterally. Trachea: Visualized trachea is unremarkable. Lungs: Unremarkable as visualized. Bones/joints: Reversal of the normal cervical lordosis. No acute fracture allowing for motion. Soft tissues: No significant soft tissue swelling. IMPRESSION: Bilateral oropharyngitis, affecting adenoids greater than tonsils as above. Dictated and Authenticated by: Delmy Johnson MD. Ordering:SHADY Agustin MD
--- NOTE | 2022-09-13 23:32 | ED.PROG_ITS ---
Date of service: 09/13/22 Time of Service: 23:32 Medical Decision Making I received signout on this 32-year-old female with neck pain. She is pending a CT soft tissue neck with IV contrast. Her comprehensive metabolic panel shows no PAO no acute electrolyte abnormalities. Her TSH is within normal limits. He r CBC shows no anemia no thrombocytopenia and leukocytosis. Her magnesium is within normal limits. Her CT soft tissue neck showed bilateral oral pharyngitis affecting adenoids greater than tonsils. Will swab for strep and provide steroids. We will treat for strep if swab is positive. 11:49 PM I met with the patient and explained her CT results to her. I examined her oropharynx. Her uvula is midline which is not consistent with a [employer]PER[employer]. She was handling her secretions and was nontoxic-appearing so my suspicion was exceedingly low for epiglottitis. She was able to range her neck so I was not concerned for retropharyngeal abscess. I advised her that I was planning on swabbing her for strep to ensure she did not have strep pharyngitis. She declined strep swab. I treated her with oral dexamethasone and acetaminophen and advised PCP follow-up. I also advised her to return to the ED if she had difficulty handling her secretions and any fevers or any worsening discomfort in the back of her throat. I counseled her on testing for acetaminophen and ibuprofen. Sign Out Sign Out Data: Sign Out Comment: 3 days subjective throat swelling and pain on the left side, pending ct, if negative likely discharge home with pcp follow up Last updated by Vamsi Aguirre MD at 09/13/22 22:46 Discharge Plan Disposition Patient Disposition: Home Discharge Details Clinical Impression: Throat discomfort Primary Care Provider: Aurelia Huggins ED Provider: Jesse Hanson Home Meds and New Rx's Prescriptions: Continued escitalopram oxalate [Lexapro] 10 mg tablet 10 mg PO DAILY Qty: 90 3RF Rx Instructions: Restarting for anxiety 05/10/2020 gabapentin 100 mg capsule 100 mg PO TID Qty: 270 3RF Rx Instructions: For severe back/hip pain daily PRN. Ok to subs for tabs. fexofenadine 180 mg tablet 180 mg PO DAILY PRN (Reason: allergies) Qty: 90 3RF Rx Instructions: Allergies levothyroxine 75 mcg tablet 75 mcg PO DAILY Qty: 90 3RF albuterol sulfate [Ventolin HFA] 90 mcg/actuation HFA aerosol inhaler 1 - 2 puff IH Q4H PRN (Reason: shortness of breath or wheezing) Qty: 8 1RF Rx Instructions: PLEASE NO SUBSTITUTIONS; PROAIR INEFFECTIVE esomeprazole magnesium [Nexium] 40 mg capsule,delayed release(DR/EC) 40 mg PO DAILY Qty: 90 3RF Rx Instructions: Heartburn meclizine 25 mg tablet 25 mg PO TID PRN (Reason: dizziness) Qty: 30 0RF Discharge Instructions Additional Instructions: Please read all of the information that accompanies these instructions. You w ere seen in the emergency department for your throat discomfort. Your CAT scan showed some mild swelling in your throat. Your blood work was reassuring. Please schedule an appointment with your primary care provider later this week. Please return to the emergency department if you develop difficulty breathing shortness of breath chest pain or have any other concerns. For your pain please take medications as follows: 1. Take acetaminophen (Tylenol), 1,000 mg (two 500 mg tabs) every 6 hours 2. Take ibuprofen (Advil), 400 mg every 6 hours.
[2022-09-13] MEDS: Normal Saline 1,000 ML 1000 ML IV (23:55)
[2022-09-13] MEDS: Acetaminophen 500 MG TAB 1000 MG PO (23:55)
[2022-09-13] MEDS: Dexamethasone 4 MG TAB 8 MG PO (23:55)
== END 2022-09-14 00:04 | disposition home or self-care (01) ==
PROVIDERS: Emergency Medicine; Emergency Provider Emergency Medicine; PCP Nurse Practitioner Family
DX: R22.0 Localized swelling, mass and lump, head (principal); M54.2 Cervicalgia; J02.9 Acute pharyngitis, unspecified; E03.9 Hypothyroidism, unspecified; Z79.899 Other long term (current) drug therapy
CPT/HCPCS: 70491; 80053; 93005; 99285; 83735; 84443; 85025; 93010; 99284; J3490; J8540

== ENCOUNTER 2022-10-20 22:44 | Emergency (ER) | payer MEDICAID, SELFPAY ==
[2022-10-20 22:48] VITALS: BP 129/68; PULSE 76; RESP 15; TEMP 36.7; O2SAT 99
--- NOTE | 2022-10-20 23:23 | W.ED.GENAD ---
Discharge Plan Disposition Patient Disposition: Home Condition: Good Discharge Details Clinical Impression: Pain, dental Primary Care Provider: Aurelia Huggins ED Provider: [facility] Home Meds and New Rx's Prescriptions: New clindamycin HCl [Cleocin HCl] 150 mg capsule 450 mg PO TID 7 Days Qty: 63 0RF No Action escitalopram oxalate [Lexapro] 10 mg tablet 10 mg PO DAILY Qty: 90 3RF Rx Instructions: Restarting for anxiety 05/10/2020 gabapentin 100 mg capsule 100 mg PO TID Qty: 270 3RF Rx Instructions: For severe back/hip pain daily PRN. Ok to subs for tabs. fexofenadine 180 mg tablet 180 mg PO DAILY PRN (Reason: allergies) Qty: 90 3RF Rx Instructions: Allergies levothyroxine 75 mcg tablet 75 mcg PO DAILY Qty: 90 3RF albuterol sulfate [Ventolin HFA] 90 mcg/actuation HFA aerosol inhaler 1 - 2 puff IH Q4H PRN (Reason: shortness of breath or wheezing) Qty: 8 1RF Rx Instructions: PLEASE NO SUBSTITUTIONS; PROAIR INEFFECTIVE esomeprazole magnesium [Nexium] 40 mg capsule,delayed release(DR/EC) 40 mg PO DAILY Qty: 90 3RF Rx Instructions: Heartburn meclizine 25 mg tablet 25 mg PO TID PRN (Reason: dizziness) Qty: 30 0RF Discharge Instructions Instructions: Toothache (ED) Additional Instructions: Please take 800 mg of ibuprofen every 6 hours and 1000 mg of Tylenol every 6 hours to help with the inflammation and pain. These are the maximum doses. Please take the antibiotic as directed to help with the infection in your tooth. We chose clindamycin secondary to the antibiotic allergies that you have to penicillin based medications. Please use the dental list that we have provided to contact the dentist for prompt follow-up and evaluation for tooth removal. If you notice any worsening of your symptoms, or any new symptoms such as difficulty swallowing, difficulty breathing, vomiting, diarrhea, fever, chills, shortness of breath, chest pain, numbness, weakness, or fainting , please return immediately to the emergency department for reevaluation. Please follow up with your primary care provider as soon as possible for reassessment and reevaluation. As always, it was a pleasure participating in your medical care today. Referrals: Aurelia Huggins NP [Primary Care Provider] - Medical Decision Making 32-year-old female with a past medical history of dental caries, cognitive development delay, GERD, PTSD, hypothyroidism, ovarian cyst, presents today for evaluation of left upper and lower dental pain. Symptoms have been going on for the last year. She has not been able to get a dentist secondary to insurance issues. She has been taking Tylenol and Motrin but this has not significantly helped. Pain is made worse with chewing. She denies any trauma. She denies any fever or chills. No difficulty swallowing or drinking or eating. No vomiting or diarrhea. No other complaints at this time. No other modifying factors. Exam demonstrates dental caries, but no evidence of swelling in the posterior oropharynx, no evidence of otitis media, or other abnormalities otherwise. No periapical abscess on exam. Symptoms consistent with mild dental caries. I did discuss with the patient the importance of dental care on an outpatient basis with her dentist. Patient understands this and is reaching out to the dentist. We will give a dental sheet for home use. Because of her penicillin allergy we will give clindamycin for treatment of suspected dental caries. Will recommend continued NSAIDs. Patient refused dental block. Patient stable for discharge otherwise. No evidence of Ludewig's angina or other abnormalities. Discussed red flags for which to return. I have extensively reviewed the treatment plan and discharge instructions with the patient and their family. I have addressed all patient concerns at this time. The patient and family was made aware of what symptoms to monitor for that would warrant a return to the emergency department. Discussed the plan with the patient and family, they demonstrate verbal understanding and agreement with our assessment and plan at this time. The documentation in this chart was dictated using [employer] dictation software. Please excuse any dictation errors. HPI General Date/Time Provider Initiated Documentation: 10/20/22 22:45. HPI Narrative: 32-year-old female with a past medical history of dental caries, cognitive development delay, GERD, PTSD, hypothyroidism, ovarian cyst, presents today for evaluation of left upper and lower dental pain. Symptoms have been going on for the last year. She has not been able to get a dentist secondary to insurance issues. She has been taking Tylenol and Motrin but this has not significantly helped. Pain is made worse with chewing. She denies any trauma. She denies any fever or chills. No difficulty swallowing or drinking or eating. No vomiting or diarrhea. No other complaints at this time. No other modifying factors. Related Data Home Medications Medication Instructions Recorded Confirmed levothyroxine 75 mcg tablet 75 mcg PO DAILY #90 tabs 04/08/20 08/15/22 Ventolin HFA 90 mcg/actuation 1 - 2 puff inhalation Q4H PRN 04/26/20 08/15/22 aerosol inhaler (albuterol sulfate) shortness of breath or wheezing #8 grams meclizine 25 mg tablet 25 mg PO TID PRN dizziness #30 tabs 07/30/22 08/15/22 escitalopram oxalate 10 mg tablet 10 mg PO DAILY #90 tabs 08/15/22 08/15/22 (Lexapro) fexofenadine 180 mg tablet 180 mg PO DAILY PRN allergies #90 08/15/22 08/15/22 tabs gabapentin 100 mg capsule 100 mg PO TID #270 caps 08/15/22 08/15/22 esomeprazole magnesium 40 mg 40 mg PO DAILY #90 caps 08/24/22 capsule,delayed release (Nexium) clindamycin HCl 150 mg capsule 450 mg PO TID 7 days #63 caps 10/20/22 (Cleocin HCl) Previous Rx's Medication Instructions Recorded levothyroxine 75 mcg tablet 75 mcg PO DAILY #90 tabs 04/08/20 Ventolin HFA 90 mcg/actuation 1 - 2 puff inhalation Q4H PRN 04/26/20 aerosol inhaler (albuterol sulfate) shortness of breath or wheezing #8 grams meclizine 25 mg tablet 25 mg PO TID PRN dizziness #30 tabs 07/30/22 escitalopram oxalate 10 mg tablet 10 mg PO DAILY #90 tabs 08/15/22 (Lexapro) fexofenadine 180 mg tablet 180 mg PO DAILY PRN allergies #90 08/15/22 tabs gabapentin 100 mg capsule 100 mg PO TID #270 caps 08/15/22 esomeprazole magnesium 40 mg 40 mg PO DAILY #90 caps 08/24/22 capsule,delayed release (Nexium) clindamycin HCl 150 mg capsule 450 mg PO TID 7 days #63 caps 10/20/22 (Cleocin HCl) Allergies Allergy/AdvReac Type Severity Reaction Status Date / Time shellfish derived Allergy Severe Throat Verified 08/15/22 09:32 closes up latex Allergy Intermediate Skin Rash Verified 08/15/22 09:32 Penicillins Allergy Intermediate URTICARIA, Verified 08/15/22 09:32 ROOM SPINS amoxicillin trihydrate Allergy Unknown unknown Verified 08/15/22 09:32 [From Augmentin] metronidazole [From Flagyl] Allergy Unknown HIVES- RED Verified 08/15/22 09:32 BLOTCHES sumatriptan succinate AdvReac Severe chest pain Verified 08/15/22 09:32 [From Imitrex] tuna fish Allergy Unknown throat Uncoded 08/15/22 09:32 closes up B-2 AdvReac Uncoded 08/15/22 09:32 General Stated Complaint: DentalOral HUY: 4 Review of Systems All systems reviewed & are unremarkable except as noted in HPI and below PFSH All Active Problems Pain, dental (Acute) Asthma, chronic (Acute) Thyroid disorder (Acute) At risk for sleep apnea (Acute) Migraine (Chronic) [facility] Cognitive developmental delay (Chronic) [facility] Development Program Guardian (2019) Maryam Chen (see chart note 01/03/2019) Guardian terminated 03/31/[address]. Allergic rhinitis (Acute) Posttraumatic stress disorder (Chronic 08/18/11) GERD (gastroesophageal reflux disease) (Chronic) Failed Omeprazole, Failed Lansoprazole, Failed Pepcid Insertion of implantable subdermal contraceptive (Acute 03/08/15) Nicotine dependence (Chronic) 8 cigs/day Cannabis dependence (Chronic) Daily Hypothyroid (Chronic) Stress incontinence (Acute) Ovarian cyst (Acute) Dysmenorrhea (Acute) Abnormal MRI, thoracic spine (Acute) [facility], f/u OV with [facility] pending Menorrhagia (Acute) IBS (irritable bowel syndrome) (Chronic) Nausea (Acute) Change in bowel habits (Acute) Anxiety and depression (Chronic) Escitalopram 10mg works well Medical History ADD (attention deficit disorder) Outgrew when became parent Infestation by Sarcoptes scabiei (07/15/14) Sterilization consult Surgical History History of wisdom tooth extraction Hx of bilateral salpingectomy (~92) Family History Mother Depression Asthma Father Diabetes Asthma Brother Depression Asthma Grandfather No problems noted. Grandfather No problems noted. Grandmother No problems noted. Grandmother No problems noted. Daughter No problems noted. Social History Smoking/Tobacco Use Status: Current every day Tobacco Type: cigarettes Smoking packs per day: 0.5 Smoking cigarettes per day: 10.0 Quit status: not considering quitting Second Hand Exposure: Yes Smoking risk assessment performed?: Yes Alcohol Intake: never Drug use: Daily Substance use type: marijuana Adopted: No Caregiver/Support person: No Foster care: No Household members: significant other Housing: house Number of Children: 2 Communication Needs: Corrective Lenses Do you need help understanding health information?: Never Pets and animals: Yes Pets and animals: cat(s) and dog(s) Sexually active: No Do you think of yourself as: straight/heterosexual Current gender identity: female What is your relationship status?: never How often do you talk on the phone with friends or family?: never How often do you get together with friends or relatives?: decline to answer How often do you attend evangelical or restorationism services?: decline to answer Do you belong to any clubs or organized social groups?: no Panel score (0-1 are the most socially isolated patients): 0 What type of physical activity do you participate in: walking Duration: 30-45 minutes/day Frequency: daily Katelyn/Anabaptism: No preference Special katelyn needs: No Seatbelt use: always Drive intox or ride w/intox transportation driver: No Do you feel safe at home: Yes Do you feel safe in your relationship?: Yes History History 5 Para 2 Hx # Term Pregnancies 1 Multiple births 0 Hx # Pregnancies 0 Ectopic pregnancies 0 AB induced 0 Hx Number of Living Children 1 AB spontaneous 4 Past Pregnancies Del. Date GA/Weeks # Preg Succ Route Wgt Sex Labor Lgth Anesthesia Location Prov [facility] 03/05/15 39 vaginal 3005.049 g Female 10 hrs regional [facility] Exam Narrative Exam Narrative: 1.Const: Well-nourished, Well-developed, appearing stated age 2.Eyes: PERRL, no conjunctival injection, and symmetrical lids. 3.ENT: Atraumatic external nose and ears. Moist MM. Neck: Symmetric, trachea midline, No thyromegaly. Poor dental care, notable dental caries throughout. No evidence of otitis media. No mastoid tenderness. 4.CVS: +S1/S2, No murmurs or gallops. Peripheral pulses 2+ and equal in all extremities. Brisk capillary refill in all extremities. 5.RESP: Unlabored respiratory effort. Clear to auscultation bilaterally. No wheezes rales or rhonchi 6.GI: Soft, Nontender/Nondistended, No hepatosplenomegaly. No guarding or rebound. 7.MSK: Normocephalic/Atraumatic, Extremities w/o deformity or ttp No cyanosis or clubbing, Normal movement of all extremities 8.Skin: Warm, Dry. No rashes or lesions. 9.Neuro: vat tender II-XII grossly intact. Sensation grossly intact, no focal neurologic deficits. 10.Psych: (AAO) x3. Appropriate mood and affect Course Vital Signs Vital signs: Vital Signs Temperature 36.7 C 10/20/22 22:48 Pulse 76 10/20/22 22:48 Respiratory Rate 15 10/20/22 22:48 Blood Pressure 129/68 10/20/22 22:48 Pulse Oximetry 99 10/20/22 22:48 Temperature 36.7 C 10/20/22 22:48 Temperature Source Oral 10/20/22 22:48 Pulse 76 10/20/22 22:48 Respiratory Rate 15 10/20/22 22:48 Blood Pressure 129/68 10/20/22 22:48 Blood Pressure Position Sitting 10/20/22 22:48 Pulse Oximetry 99 10/20/22 22:48 Oxygen Delivery Method Room Air 10/20/22 22:48 Oxygen Flow Rate 0 10/20/22 22:48 Pain Level 8 10/20/22 22:48
[2022-10-20] MEDS: Clindamycin 150 MG CAP, 12 CAPS/BTL 450 MG PO (23:29)
== END 2022-10-20 23:34 | disposition home or self-care (01) ==
PROVIDERS: Emergency Provider Student in an Organized Health Care Education/Training Program; PCP Nurse Practitioner Family
DX: K08.89 Other specified disorders of teeth and supporting structures (principal)
CPT/HCPCS: 99283; 99284

== ENCOUNTER 2022-11-11 13:06 | Emergency (ER) | payer MEDICAID, SELFPAY ==
[2022-11-11 13:03] VITALS: BP 145/111; PULSE 76; RESP 24; TEMP 36.7; O2SAT 99
--- NOTE | 2022-11-11 13:15 | DI.RAD_ITS ---
Exam(s) XR FOREARM RT XR HAND RT COMPLETE EXAM: XR HAND RT COMPLETE CLINICAL HISTORY: Trauma-this significant laceration through glass. TECHNIQUE: 2D digital imaging was performed. Three views. COMPARISON: CR XR wrist RT complete from 09/21/2018 CR,XR XR FOREARM RT from 11/11/2022 FINDINGS: BONES: No acute fracture is present. No bony destructive lesion is seen. JOINTS: No dislocation present. The elbow is unremarkable. SOFT TISSUE: Large soft tissue wound adjacent to the distal 3rd of the ulna. No radiopaque foreign b sarmad. IMPRESSION: Unremarkable radiographs of the right hand. Large soft tissue laceration of the forearm. DATA REPOSITORY: RADIATION DOSE DELIVERED:
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
[2022-11-11] MEDS: Ketorolac 15 MG/ML VIAL IVP (14:01)
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
[2022-11-11 16:52] VITALS: BP 131/115; PULSE 80; TEMP 36; O2SAT 98
[2022-11-11] MEDS: Clindamycin 150 MG CAP, 12 CAPS/BTL 450 MG PO (18:09)
[2022-11-11] MEDS: Clindamycin 150 MG CAP 450 MG PO (18:09)
[2022-11-11] MEDS: Ondansetron O.D.T. 4 MG TABEF (19:17)
== END 2022-11-11 19:30 | disposition home or self-care (01) ==
PROVIDERS: Emergency Provider Registered Nurse Emergency; PCP Nurse Practitioner Family
DX: S51.811A Laceration without foreign body of right forearm, initial encounter (principal); S56.221A Laceration of other flexor muscle, fascia and tendon at forearm level, right arm, initial encounter; F17.210 Nicotine dependence, cigarettes, uncomplicated; W18.02XA Striking against glass with subsequent fall, initial encounter; Y93.89 Activity, other specified; Y99.9 Unspecified external cause status
CPT/HCPCS: 12004; 81025; 99284; 73090; 73130; 99283; J1885

== ENCOUNTER 2023-03-14 23:12 | Emergency (ER) | payer MEDICAID, SELFPAY ==
[2023-03-14 23:14] VITALS: BP 117/54; PULSE 77; RESP 16; TEMP 36.9; O2SAT 99
--- NOTE | 2023-03-14 23:15 | RT.EKG_ITS ---
APPROVED REPORT Exam: Resting ECG Reason for Exam: dizzy Patient Location: E HR:65 bpm ECG Measurements Heart Rate 65 AXIS WY 151 P 39 QRSd 75 QRS 44 QT 378 T 20 QTc 392 Conclusion Sinus rhythm...normal P axis, V-rate 60- 99 Normal [place] Normal Electrocardiogram There are no significant changes compared to prior EKG performed on 09/13/2022 at 22:17.
--- NOTE | 2023-03-14 23:17 | ED.GENADUL_ITS ---
HPI General Mode of arrival: ambulatory . Date/Time Provider Initiated Documentation: 03/14/23 23:16 . Limitations to Documentation: no limitations . Information obtained by: patient . HPI Narrative: Patient presents to ED with complaint of vertigo. Patient reports history of same. And got up from a nap and was heading to the bathroom when she became vertiginous and unable to ambulate. She has had episodes similar to this multiple times in the past. She is still mildly vertiginous here. Denies any chest pain, palpitations, shortness of breath, syncope. Denies any headache, vision change, neurologic change. Did not have meclizine at home because she still felt vertiginous especially with movement or position change she came to ED. She has unchanged distal right upper extremity weakness from a injury in the recent past. Related Data Home Medications Medication Instructions Recorded Confirmed escitalopram oxalate 10 mg tablet 10 mg PO DAILY #90 tabs 08/15/22 03/14/23 (Lexapro) gabapentin 100 mg capsule 100 mg PO TID #270 caps 08/15/22 03/14/23 esomeprazole magnesium 40 mg 40 mg PO DAILY #90 caps 08/24/22 03/14/23 capsule,delayed release (Nexium) Ventolin HFA 90 mcg/actuation 1 - 2 puff inhalation Q4H PRN 11/09/22 03/14/23 aerosol inhaler (albuterol sulfate) shortness of breath or wheezing #8 grams fexofenadine 180 mg tablet 180 mg PO DAILY #90 tabs 11/28/22 03/14/23 levothyroxine 75 mcg tablet 75 mcg PO DAILY #90 tabs 02/11/23 03/14/23 meclizine 25 mg tablet 25 mg PO TID PRN dizziness #15 tabs 03/14/23 Previous Rx's Medication Instructions Recorded escitalopram oxalate 10 mg tablet 10 mg PO DAILY #90 tabs 08/15/22 (Lexapro) gabapentin 100 mg capsule 100 mg PO TID #270 caps 08/15/22 esomeprazole magnesium 40 mg 40 mg PO DAILY #90 caps 08/24/22 capsule,delayed release (Nexium) Ventolin HFA 90 mcg/actuation 1 - 2 puff inhalation Q4H PRN 11/09/22 aerosol inhaler (albuterol sulfate) shortness of breath or wheezing #8 grams fexofenadine 180 mg tablet 180 mg PO DAILY #90 tabs 11/28/22 levothyroxine 75 mcg tablet 75 mcg PO DAILY #90 tabs 02/11/23 meclizine 25 mg tablet 25 mg PO TID PRN dizziness #15 tabs 03/14/23 Allergies Allergy/AdvReac Type Severity Reaction Status Date / Time shellfish derived Allergy Severe Throat Verified 03/14/23 23:25 closes up latex Allergy Intermediate Skin Rash Verified 03/14/23 23:25 Penicillins Allergy Intermediate URTICARIA, Verified 03/14/23 23:25 ROOM SPINS amoxicillin trihydrate Allergy Unknown unknown Verified 03/14/23 23:25 [From Augmentin] metronidazole [From Flagyl] Allergy Unknown HIVES- RED Verified 03/14/23 23:25 BLOTCHES sumatriptan succinate AdvReac Severe chest pain Verified 03/14/23 23:25 [From Imitrex] tuna fish Allergy Unknown throat Uncoded 03/14/23 23:25 closes up B-2 AdvReac Uncoded 03/14/23 23:25 General HUY: 3 Review of Systems Narrative: Per HPI PFSH All Active Problems (Updated 03/14/23 @ 23:35 by Anjel Bassett MD) Vertigo (Acute) Sterilization consult (Acute) Asthma, chronic (Chronic) Thyroid disorder (Acute) At risk for sleep apnea (Acute) Migraine (Chronic) [facility] Allergic rhinitis (Acute) Posttraumatic stress disorder (Chronic 08/18/11) GERD (gastroesophageal reflux disease) (Chronic) Failed Omeprazole, Failed Lansoprazole, Failed Pepcid Insertion of implantable subdermal contraceptive (Acute 03/08/15) Nicotine dependence (Chronic) 8 cigs/day Cannabis dependence (Chronic) Daily Stress incontinence (Acute) Ovarian cyst (Acute) Dysmenorrhea (Acute) Abnormal MRI, thoracic spine (Acute) [facility] [place]/2019, f/u OV with [facility] [place] Neurosurg pending Menorrhagia (Acute) IBS (irritable bowel syndrome) (Chronic) Nausea (Acute) Change in bowel habits (Acute) Medical History Anxiety and depression Escitalopram 10mg works well Hypothyroid Cognitive developmental delay [facility] Development Program Guardian (2018) Maryam Chen (see chart note 01/03/2019) Guardian terminated 03/31/[address]. ADD (attention deficit disorder) Outgrew when became parent Surgical History Hx of bilateral salpingectomy (~92) History of wisdom tooth extraction Family History Mother Depression Asthma Father Diabetes Asthma Brother Depression Asthma Grandfather No problems noted. Grandfather No problems noted. Grandmother No problems noted. Grandmother No problems noted. Daughter No problems noted. Social History Smoking/Tobacco Use Status: Current every day Tobacco Type: cigarettes Smoking packs per day: 0.5 Smoking cigarettes per day: 10.0 Quit status: not considering quitting Second Hand Exposure: Yes Smoking risk assessment performed?: Yes Alcohol Intake: never Drug use: Daily Substance use type: marijuana Adopted: No Caregiver/Support person: No Foster care: No Household members: significant other Housing: house Number of Children: 2 Communication Needs: Corrective Lenses Do you need help understanding health information?: Never Pets and animals: Yes Pets and animals: cat(s) and dog(s) Sexually active: No Do you think of yourself as: straight/heterosexual Current gender identity: female What is your relationship status?: never How often do you talk on the phone with friends or family?: never How often do you get together with friends or relatives?: decline to answer How often do you attend rastafarian or baptism services?: decline to answer Do you belong to any clubs or organized social groups?: no Panel score (0-1 are the most socially isolated patients): 0 What type of physical activity do you participate in: walking Duration: 30-45 minutes/day Frequency: daily Katelyn/Temple: No preference Special katelyn needs: No Seatbelt use: always Drive intox or ride w/intox crude oil driver: No Do you feel safe at home: Yes Do you feel safe in your relationship?: Yes History History 5 Para 2 Hx # Term Pregnancies 1 Multiple births 0 Hx # Pregnancies 0 Ectopic pregnancies 0 AB induced 0 Hx Number of Living Children 1 AB spontaneous 4 Past Pregnancies Del. Date GA/Weeks # Preg Succ Route Wgt Sex Labor Lgth Anesth esia Location Prov Complic 03/05/15 39 vaginal 3005.049 g Female 10 hrs regional [facility] Exam Narrative Exam Narrative: Const: WDWN female in NAD. HEENT: NC/AT. Normal facial exam. Eyes: Normal conjunctiva and sclera. PERRL and EOMI. no nystagmus Neck: Supple. Trachea midline. Lungs: Normal respiratory effort. Lungs are clear. Cor: RRR without murmur/gallop. Good radial pulses. Neuro: A+O x 3. Normal speech, mentation, gait. Cranial nerves II - XII grossly intact. No gross motor or sensory deficit, mild distal right upper extremity weakness. [id number] normal. Ext: No C/C/E. Skin: Warm and dry without rash. Medical Decision Making Patient presenting to ED with vertigo. This is not new and is unchanged from previous episodes. Unfortunately, did not have meclizine at home to take it because she continues to feel vertiginous especially with movement, position change, walking she came to ED. Vital signs are normal. EKG is normal per my read. Neurologic exam is nonfocal except for residual distal right upper extremity weakness from prior injury. Patient given dose of meclizine here. Prescription for same sent to her pharmacy. Follow-up with primary care next week. Return precautions provided. ECG Data Attestation: I personally reviewed and interpreted this ECG (s) as follows: Prior ECG tracings: available for review Interpretation: Normal Quality:SDOH Health Related Social Needs: No Data to Display Discharge Plan Disposition Patient Disposition: Home Condition: Good Discharge Details Clinical Impression: Vertigo Primary Care Provider: Aurelia Huggins ED Provider: Anjel Bassett Bo[place] D Arc Meds and New Rx's Prescriptions: New meclizine 25 mg tablet 25 mg PO TID PRN (Reason: dizziness) Qty: 15 0RF Continued escitalopram oxalate [Lexapro] 10 mg tablet 10 mg PO DAILY Qty: 90 3RF Rx Instructions: Restarting for anxiety 05/10/2020 gabapentin 100 mg capsule 100 mg PO TID Qty: 270 3RF Rx Instructions: For severe back/hip pain daily PRN. Ok to subs for tabs. esomeprazole magnesium [Nexium] 40 mg capsule,delayed release(DR/EC) 40 mg PO DAILY Qty: 90 3RF Rx Instructions: Heartburn albuterol sulfate [Ventolin HFA] 90 mcg/actuation HFA aerosol inhaler 1 - 2 puff IH Q4H PRN (Reason: shortness of breath or wheezing) Qty: 8 1RF Rx Instructions: PLEASE NO SUBSTITUTIONS; PROAIR INEFFECTIVE fexofenadine 180 mg tablet 180 mg PO DAILY Qty: 90 3RF Rx Instructions: Allergies levothyroxine 75 mcg tablet 75 mcg PO DAILY Qty: 90 3RF Discharge Instructions Instructions: Vertigo (ED) Additional Instructions: You were seen for vertigo which you have had previously. Your vital signs, EKG, and exam are otherwise reassuring. You were given meclizine and a prescription for same has been sent to pharmacy. Please follow-up with primary care. Return to ED for any new neurologic changes, severe headache, fainting, other concerns.
[2023-03-14] MEDS: Meclizine 25 MG TAB PO (23:43)
== END 2023-03-14 23:46 | disposition home or self-care (01) ==
PROVIDERS: Emergency Provider Emergency Medicine; PCP Nurse Practitioner Family
DX: R42 Dizziness and giddiness (principal); F17.210 Nicotine dependence, cigarettes, uncomplicated
CPT/HCPCS: 93005; 99283; 93010

== ENCOUNTER 2023-08-21 20:12 | Emergency (ER) | payer MEDICAID, SELFPAY ==
[2023-08-21 20:16] VITALS: BP 123/81; PULSE 76; RESP 16; TEMP 36.1; O2SAT 99
--- NOTE | 2023-08-21 20:45 | RT.EKG_ITS ---
APPROVED REPORT Exam: Resting ECG Reason for Exam: dizzy Patient Location: E HR:60 bpm ECG Measurements Heart Rate 60 AXIS IL 152 P 72 QRSd 85 QRS 46 QT 413 T 33 QTc 412 Conclusion Sinus rhythm...normal P axis, V-rate 60- 99 Narrow complex normal sinus rhythm at a rate of 60. Normal axis. Intervals within normal limits. M ild upsloping ST segment elevation in V2 and aVL. Mild ST segment depression in V3. Compared to willard or ST segment elevations are slightly more pronounced. No acute injury pattern.
[2023-08-21 21:17] LABS: HCT 37.1 % (36.0-46.0); HGB 12.7 g/dL (11.2-15.7); MCH 32.6 pg (27.0-33.0); MCHC 34.2 % (32.0-36.0); MCV 95 fL (80-95); MPV 11.5 fL (8.0-11.0); Platelet Count 298 10^3/uL (130-400); RDW 13.4 % (11.7-14.6); RDW-SD 47.2 fL; WBC 9.49 10^3/uL (4.4-10.8)
--- NOTE | 2023-08-21 21:31 | W.ED.GENAD ---
Discharge Plan Discharge Details Chief Complaint: Dizzy/Sync Primary Care Provider: Aurelia Huggins ED Provider: Pippa Jimenez Home Meds and New Rx's Prescriptions: No Action escitalopram oxalate [Lexapro] 10 mg tablet 10 mg PO DAILY Qty: 90 3RF Rx Instructions: Restarting for anxiety 05/10/2020 gabapentin 100 mg capsule 100 mg PO TID Qty: 270 3RF Rx Instructions: For severe back/hip pain daily PRN. Ok to subs for tabs. ondansetron 4 mg tablet,disintegrating 4 mg PO Q8H Qty: 7 0RF esomeprazole magnesium [Nexium] 40 mg capsule,delayed release(DR/EC) 40 mg PO DAILY Qty: 90 3RF Rx Instructions: Heartburn albuterol sulfate [Ventolin HFA] 90 mcg/actuation HFA aerosol inhaler 1 - 2 puff IH Q4H PRN (Reason: shortness of breath or wheezing) Qty: 8 1RF Rx Instructions: PLEASE NO SUBSTITUTIONS; PROAIR INEFFECTIVE fexofenadine 180 mg tablet 180 mg PO DAILY Qty: 90 3RF Rx Instructions: Allergies levothyroxine 75 mcg tablet 75 mcg PO DAILY Qty: 90 3RF meclizine 25 mg tablet 25 mg PO TID PRN (Reason: dizziness) Qty: 15 0RF HPI General Date/Time Provider Initiated Documentation: 08/21/23 20:48. HPI Narrative: Orly is a 33-year-old female with history of asthma, nicotine dependence, IBS-D, MS, and lupus who presents to the emergency department for evaluation of episodes of dizziness. She reports this is been ongoing for 3 months, occurs daily. She will experience dizziness accompanied by nausea and 1 that causes her to feel weak and collapsed to the ground. No loss of consciousness. This can occur both at rest while standing and while active. She admits that she has had multiple stressors, including poor sleep, unable to sleep for more than a couple hours at a time because she keeps getting woken up by family members who do not like to see people sleeping and poor diet due to financial constraints. She denies recent fever/chills, congestion, sore throat, change in baseline smoker's cough, nausea/vomiting, abdominal pain, change in bowel or bladder function other than diarrhea attributed to not taking IBS medications. She has a PCP she can follow-up with at [facility]. Physical exam remarkable for slightly tacky mucous membranes. Easy work of breathing, lung sounds clear bilaterally. Normal heart sounds. Abdomen is soft, nondistended, nontender to palpation. DDx includes but is not limited to: Hypoglycemia, vasovagal near syncope, cardiac arrhythmia, dehydration, electrolyte imbalance I independently interpreted the following tests: CBC reassuring. CMP notable only for mild hypokalemia, potassium 3.3. Mag unremarkable. EKG reassuring, normal sinus rhythm rate 60, no changes consistent with acute ischemia. Chest x-ray unremarkable, no acute findings; this was confirmed by radiologist. While in the emergency department when had p.o. without any difficulty. After resting in room she does appear to feel better. P.o. potassium given for replenishment Unclear etiology of dizziness, likely related to her dietary intake and insufficient sleep. Workup today overall was reassuring. Reviewed discharge instructions with patient, including importance of adequate sleep, good nutrition, and stress management. She does have an appoint with a counselor coming up, advised her to follow-up with this. Educated on red flags indicate need for return to emergency care, including feeling unsafe at home. Related Data Home Medications Medication Instructions Recorded Confirmed escitalopram oxalate 10 mg tablet 10 mg PO DAILY #90 tabs 08/15/22 08/21/23 (Lexapro) gabapentin 100 mg capsule 100 mg PO TID #270 caps 08/15/22 08/21/23 esomeprazole magnesium 40 mg 40 mg PO DAILY #90 caps 08/24/22 08/21/23 capsule,delayed release (Nexium) Ventolin HFA 90 mcg/actuation 1 - 2 puff inhalation Q4H PRN 11/09/22 08/21/23 aerosol inhaler (albuterol sulfate) shortness of breath or wheezing #8 grams fexofenadine 180 mg tablet 180 mg PO DAILY #90 tabs 11/28/22 08/21/23 levothyroxine 75 mcg tablet 75 mcg PO DAILY #90 tabs 02/11/23 08/21/23 meclizine 25 mg tablet 25 mg PO TID PRN dizziness #15 tabs 03/14/23 08/21/23 ondansetron 4 mg disintegrating 4 mg PO Q8H #7 tabs 05/01/23 08/21/23 tablet Previous Rx's Medication Instructions Recorded escitalopram oxalate 10 mg tablet 10 mg PO DAILY #90 tabs 08/15/22 (Lexapro) gabapentin 100 mg capsule 100 mg PO TID #270 caps 08/15/22 esomeprazole magnesium 40 mg 40 mg PO DAILY #90 caps 08/24/22 capsule,delayed release (Nexium) Ventolin HFA 90 mcg/actuation 1 - 2 puff inhalation Q4H PRN 11/09/22 aerosol inhaler (albuterol sulfate) shortness of breath or wheezing #8 grams fexofenadine 180 mg tablet 180 mg PO DAILY #90 tabs 11/28/22 levothyroxine 75 mcg tablet 75 mcg PO DAILY #90 tabs 02/11/23 meclizine 25 mg tablet 25 mg PO TID PRN dizziness #15 tabs 03/14/23 ondansetron 4 mg disintegrating 4 mg PO Q8H #7 tabs 05/01/23 tablet Allergies Allergy/AdvReac Type Severity Reaction Status Date / Time shellfish derived Allergy Severe Throat Verified 05/14/23 15:54 closes up latex Allergy Intermediate Skin Rash Verified 05/14/23 15:54 Penicillins Allergy Intermediate URTICARIA, Verified 05/14/23 15:54 ROOM SPINS amoxicillin trihydrate Allergy Unknown unknown Verified 05/14/23 15:54 [From Augmentin] metronidazole [From Flagyl] Allergy Unknown HIVES- RED Verified 05/14/23 15:54 BLOTCHES sumatriptan succinate AdvReac Severe chest pain Verified 05/14/23 15:54 [From Imitrex] tuna fish Allergy Unknown throat Uncoded 05/14/23 15:54 closes up B-2 AdvReac Skin Rash Uncoded 05/14/23 15:54 General Stated Complaint: Dizzy/Sync HUY: 3 Review of Systems Narrative: see HPI Exam Const General: cooperative, healthy appearing, comfortable and no acute distress Nutritional Appearance: average body habitus HENMT Head: normal to inspection Face and sinus: dry mucous membranes Neck Neck: no lymphadenopathy Resp Effort & Inspection: normal respiratory effort and able to speak in complete sentences Auscultation: clear to auscultation bilaterally Cardio Rate: regular rate Rhythm: regular rhythm GI Inspection: non-distended Palpation: soft and nontender Auscultation: normal bowel sounds Course Vital Signs Vital signs: Vital Signs Temperature 36.1 C L 06/25/24 20:16 Pulse 76 08/21/23 20:16 Respiratory Rate 16 08/21/23 20:16 Blood Pressure 123/81 08/21/23 20:16 Pulse Oximetry 99 08/21/23 20:16 Temperature 36.1 C L 08/21/23 20:16 Pulse 76 08/21/23 20:16 Respiratory Rate 16 08/21/23 20:16 Respiratory Effort Normal 08/21/23 21:01 Blood Pressure 123/81 08/21/23 20:16 Blood Pressure Position Supine 08/21/23 20:16 Pulse Oximetry 99 08/21/23 20:16 Pain Level 0 08/21/23 20:16 Medical Decision Making Quality:SDOH Health Related Social Needs: No Data to Display PFSH All Active Problems Sterilization consult (Acute) Asthma, chronic (Chronic) Thyroid disorder (Acute) At risk for sleep apnea (Acute) Migraine (Chronic) [facility] Allergic rhinitis (Acute) Posttraumatic stress disorder (Chronic 08/18/11) GERD (gastroesophageal reflux disease) (Chronic) Failed Omeprazole, Failed Lansoprazole, Failed Pepcid Insertion of implantable subdermal contraceptive (Acute 03/08/15) Nicotine dependence (Chronic) 8 cigs/day Cannabis dependence (Chronic) Daily Stress incontinence (Acute) Ovarian cyst (Acute) Dysmenorrhea (Acute) Abnormal MRI, thoracic spine (Acute[place] [facility] [place] [facility] [place] Menorrhagia (Acute) IBS (irritable bowel syndrome) (Chronic) Nausea (Acute) Change in bowel habits (Acute) Medical History Anxiety and depression Escitalopram 10mg works well Hypothyroid Cognitive developmental delay [facility] Development Program Guardian (2019) Maryam Chen (see chart note 01/03/2019) Guardian terminated 03/31/[address]. ADD (attention deficit disorder) Outgrew when became parent Surgical History Hx of bilateral salpingectomy (~92) History of wisdom tooth extraction Family History Mother Depression Asthma Father Diabetes Asthma Brother Depression Asthma Grandfather No problems noted. Grandfather No problems noted. Grandmother No problems noted. Grandmother No problems noted. Daughter No problems noted. Social History Smoking/Tobacco Use Status: Current every day Tobacco Type: cigarettes Smoking packs per day: 0.5 Smoking cigarettes per day: 10.0 Quit status: not considering quitting Second Hand Exposure: Yes Smoking risk assessment performed?: Yes Alcohol Intake: never Drug use: Daily Substance use type: marijuana Adopted: No Caregiver/Support person: No Foster care: No Household members: significant other Housing: house Number of Children: 2 Communication Needs: Corrective Lenses Do you need help understanding health information?: Never Pets and animals: Yes Pets and animals: cat(s) and dog(s) Sexually active: No Do you think of yourself as: straight/heterosexual Current gender identity: female What is your relationship status?: never How often do you talk on the phone with friends or family?: never How often do you get together with friends or relatives?: decline to answer How often do you attend buddhism or faith services?: decline to answer Do you belong to any clubs or organized social groups?: no Panel score (0-1 are the most socially isolated patients): 0 What type of physical activity do you participate in: walking Duration: 30-45 minutes/day Frequency: daily Katelyn/Jainism: No preference Special katelyn needs: No Seatbelt use: always Drive intox or ride w/intox hazardous materials tanker driver: No Do you feel safe at home: Yes Do you feel safe in your relationship?: Yes History History 5 Para 2 Hx # Term Pregnancies 1 Multiple births 0 Hx # Pregnancies 0 Ectopic pregnancies 0 AB induced 0 Hx Number of Living Children 1 AB spontaneous 4 Past Pregnancies Del. Date GA/Weeks # Preg Succ Route Wgt Sex Labor Lgth Anesthesia Location [facility] 03/05/15 39 vaginal 3005.049 g Female 10 hrs regional [facility]
[2023-08-21 21:32] LABS: ALT 9 U/L (14-59); AST 6 U/L (15-37); Albumin 3.8 g/dL (3.4-5.0); Alkaline Phosphatase 51 U/L (46-116); Anion Gap 11.3 mmol/L (3-11); BUN 12 mg/dL (7-18); Bilirubin, Total 0.36 mg/dL (0.2-1.0); CO2 23.7 mmol/L (21.0-32.0); CREATININE 0.8 mg/dL (0.55-1.02); Calcium 8.7 mg/dL (8.5-10.1); Chloride 106 mmol/L (98-107); Estimated GFR 100.96 (mL/min/1.73m2); Glucose 89 mg/dL (74-106); Magnesium 1.8 mg/dL (1.8-2.4); Potassium 3.3 mmol/L (3.5-5.1); Sodium 141 mmol/L (136-145)
[2023-08-21 21:35] LABS: Absolute Lymphocyte Count 3.04 10^3/uL (1.2-3.4); Absolute Monocyte Count 0.28 10^3/uL (0.1-0.8); Absolute Neutrophil Count 6.17 10^3/uL (1.2-6.7); Atypical Lymphocytes % 1 %
[2023-08-21 21:36] LABS: Diff Comment Manual Differential; RBC Morphology Normal
--- NOTE | 2023-08-21 21:39 | DI.RAD_ITS ---
Exam(s) XR CHEST 2V PA LATERAL EXAM: XR CHEST 2V PA LATERAL CLINICAL HISTORY: dizzy TECHNIQUE: 2D digital imaging was performed. Two views. COMPARISON: CR,XR XR CHEST 2V PA LATERAL from 11/11/2018 FINDINGS: HEART: Normal size. Aorta: Not dilated. PULMONARY VASCULATURE: Normal. MEDIASTINUM: Unremarkable. LUNGS: Clear. PLEURAL SPACE: No pleural effusion or pneumothorax. BONE:Unremarkable for age. SOFT TISSUES: Unremarkable. IMPRESSION: No acute abnormality. DATA REPOSITORY: RADIATION DOSE DELIVERED:
[2023-08-21] MEDS: Potassium Bicarbonate/Cit AC 25 MEQ TABLET.EFF PO (22:22)
--- NOTE | 2023-08-21 22:34 | DI.VRAD_ITS ---
PROCEDURE INFORMATION: Exam: XR Chest Exam date and time: 08/21/2023 9:38 PM Age: 33 years old Clinical indication: Other: Dizzy TECHNIQUE: Imaging protocol: Radiologic exam of the chest. Views: 2 views. COMPARISON: CR XR CHEST 2V PA LATERAL 11/11/2018 10:52 PM FINDINGS: Lungs: Unremarkable. No consolidation. Pleural spaces: Unremarkable. No pleural effusion. No pneumothorax. Heart/Mediastinum: Unremarkable. No cardiomegaly. Bones/joints: Unremarkable. IMPRESSION: No evidence for acute abnormality in the chest. Dictated and Authenticated by: Rosamaria Meléndez MD. Ordering:GARY Das MD
[2023-08-21 23:37] VITALS: BP 124/70; PULSE 70; RESP 16; TEMP 36.7; O2SAT 99
--- NOTE | 2023-08-21 23:57 | NUR.NOTE ---
Referral to follow up with PCP for dizziness, 1-3 weeks Nursing Note:
== END 2023-08-21 23:32 | disposition home or self-care (01) ==
PROVIDERS: Emergency Provider Nurse Practitioner Family; PCP Nurse Practitioner Family
DX: R55 Syncope and collapse (principal); R42 Dizziness and giddiness
CPT/HCPCS: 36415; 36416; 80053; 82962; 93005; 99283; 71046; 83735; 85025; 93010; 99282

== ENCOUNTER 2024-01-09 03:58 | Emergency (ER) | payer MEDICAID, SELFPAY ==
[2024-01-09 04:01] VITALS: BP 139/96; PULSE 85; RESP 18; O2SAT 98
[2024-01-09 04:05] VITALS: TEMP 36.1
--- NOTE | 2024-01-09 04:23 | ED.GENADUL_ITS ---
Discharge Plan Disposition Patient Disposition: Home Condition: Improving Discharge Details Chief Complaint: Headache Clinical Impression: Migraine Primary Care Provider: Aurelia Huggins ED Provider: Yusef Chery Home Meds and New Rx's Prescriptions: No Action ondansetron 4 mg tablet,disintegrating 4 mg PO Q8H Qty: 7 0RF albuterol sulfate [Ventolin HFA] 90 mcg/actuation HFA aerosol inhaler 1 - 2 puff IH Q4H PRN (Reason: shortness of breath or wheezing) Qty: 8 1RF Rx Instructions: PLEASE NO SUBSTITUTIONS; PROAIR INEFFECTIVE fexofenadine 180 mg tablet 180 mg PO DAILY Qty: 90 3RF Rx Instructions: Allergies levothyroxine 75 mcg tablet 75 mcg PO DAILY Qty: 90 3RF esomeprazole magnesium [Nexium] 40 mg capsule,delayed release(DR/EC) 40 mg PO DAILY Qty: 90 3RF Rx Instructions: Heartburn gabapentin 100 mg capsule 100 mg PO TID Qty: 270 3RF Rx Instructions: For severe back/hip pain daily PRN. Ok to subs for tabs. escitalopram oxalate [Lexapro] 10 mg tablet 10 mg PO DAILY Qty: 90 3RF Rx Instructions: Restarting for anxiety 05/10/2020 meclizine 25 mg tablet 25 mg PO TID PRN (Reason: dizziness) Qty: 15 0RF Discharge Instructions Instructions: Migraine in adults Additional Instructions: Follow up with your neurologist for re-evaluation and further ling term management of your chronic headache disease. You can always return to the ER for any new concerns or sudden changes in your health which you feel requires emergency medical attention. Discharge Data Discharge Physician: Yusef Chery [facility] General Date/Time Provider Initiated Documentation: 01/09/24 04:11 . [facility] Narrative: The patient is a 33-year-old female coming with a past medical history significant for migraine headaches, who presents to the emergency department this morning, with complaints of a migraine headache in the right side of her face, right, and right frontal forehead which has been ongoing since yesterday morning. The patient reports that she has been having nausea with anorexia throughout the course of the day today, and as a consequence has not had much to eat or drink. The patient took 2 g of oral Tylenol about 2 hours before arrival in the emergency room in an attempt to alleviate the migraine headache. The patient reports no improvement in her symptoms. The patient denies any recent fevers, chills, or upper respiratory tract symptoms. Related Data Home Medications ?Medication ?Instructions ?Recorded ?Confirmed Ventolin HFA 90 mcg/actuation 1 - 2 puff inhalation Q4H PRN 11/09/22 01/09/24 aerosol inhaler (albuterol sulfate) shortness of breath or wheezing #8 grams fexofenadine 180 mg tablet 180 mg PO DAILY #90 tabs 11/28/22 01/09/24 levothyroxine 75 mcg tablet 75 mcg PO DAILY #90 tabs 02/11/23 01/09/24 meclizine 25 mg tablet 25 mg PO TID PRN dizziness #15 tabs 03/14/23 01/09/24 ondansetron 4 mg disintegrating 4 mg PO Q8H #7 tabs 05/01/23 01/09/24 tablet esomeprazole magnesium 40 mg 40 mg PO DAILY #90 caps 09/17/23 01/09/24 capsule,delayed release (Nexium) gabapentin 100 mg capsule 100 mg PO TID #270 caps 09/17/23 01/09/24 escitalopram oxalate 10 mg tablet 10 mg PO DAILY #90 tabs 09/25/23 01/09/24 (Lexapro) Previous Rx's ?Medication ?Instructions ?Recorded Ventolin HFA 90 mcg/actuation 1 - 2 puff inhalation Q4H PRN 11/09/22 aerosol inhaler (albuterol sulfate) shortness of breath or wheezing #8 grams fexofenadine 180 mg tablet 180 mg PO DAILY #90 tabs 11/28/22 levothyroxine 75 mcg tablet 75 mcg PO DAILY #90 tabs 02/11/23 meclizine 25 mg tablet 25 mg PO TID PRN dizziness #15 tabs 03/14/23 ondansetron 4 mg disintegrating 4 mg PO Q8H #7 tabs 05/01/23 tablet esomeprazole magnesium 40 mg 40 mg PO DAILY #90 caps 09/17/23 capsule,delayed release (Nexium) gabapentin 100 mg capsule 100 mg PO TID #270 caps 09/17/23 escitalopram oxalate 10 mg tablet 10 mg PO DAILY #90 tabs 09/25/23 (Lexapro) Allergies Allergy/AdvReac Type Severity Reaction Status Date / Time shellfish derived Allergy Severe Throat Verified 01/09/24 04:06 closes up latex Allergy Intermediate Skin Rash Verified 01/09/24 04:06 Penicillins Allergy Intermediate URTICARIA, Verified 01/09/24 04:06 ROOM SPINS amoxicillin trihydrate (From Allergy Unknown unknown Verified 01/09/24 04:06 Augmentin) metronidazole (From Flagyl) Allergy Unknown HIVES- RED Verified 01/09/24 04:06 BLOTCHES sumatriptan succinate (From AdvReac Severe chest pain Verified 01/09/24 04:06 Imitrex) tuna fish Allergy Unknown throat Uncoded 01/09/24 04:06 closes up B-2 AdvReac Skin Rash Uncoded 01/09/24 04:06 General Stated Complaint: Headache HUY: 3 Exam Const General: cooperative, healthy appearing and not in acute distress HENMT Face and sinus: normal facial exam and sinuses nontender Eyes Pupils: PERRL and dilated EOM: EOM intact bilaterally Neck Neck: full ROM, no meningeal signs and trachea midline Resp Effort & Inspection: normal respiratory effort and able to speak in complete sentences Neuro Cranial Nerves: CN's II-XI intact bilaterally Speech: speech normal Motor: muscle tone normal throughout and strength 5/5 throughout Sensory Exam: no sensory deficits noted Course The patient was seen and examined. She is in no distress and has relatively normal vital signs here in the emergency room. The patient tells me that this is her typical migraine type pain in the typical distribution. The patient will be given some IV Toradol, IV dextrose containing fluid, and IV Reglan to help improve her symptoms. The patient will be reassessed for improvement and likely discharged home. I do not anticipate the patient require admission for this presentation, assuming her pain can be well-managed with medications here in the emergency room. Vital Signs Vital signs: Vital Signs Pulse 85 01/09/24 04:01 Respiratory Rate 18 01/09/24 04:01 Blood Pressure 139/96 H 01/09/24 04:01 Pulse Oximetry 98 01/09/24 04:01 Temperature 36.1 C L 01/09/24 04:05 Temperature Source Temporal Artery Scan 01/09/24 04:05 Pulse 85 01/09/24 04:01 Respiratory Rate 18 01/09/24 04:01 Respiratory Effort Normal 01/09/24 04:04 Blood Pressure 139/96 H 01/09/24 04:01 Blood Pressure Position Sitting 01/09/24 04:01 Pulse Oximetry 98 01/09/24 04:01 Oxygen Delivery Method Room Air 01/09/24 04:01 Oxygen Flow Rate 0 01/09/24 04:01 Medical Decision Making Quality:SDOH Health Related Social Needs: No Data to Display [facility] All Active Problems (Updated 01/09/24 @ 04:28 by Yusef Chery MD) Sterilization consult (Acute) Asthma, chronic (Chronic) Thyroid disorder (Acute) At risk for sleep apnea (Acute) Migraine (Chronic) [facility] Allergic rhinitis (Acute) Posttraumatic stress disorder (Chronic 08/18/11) GERD (gastroesophageal reflux disease) (Chronic) Failed Omeprazole, Failed Lansoprazole, Failed Pepcid Insertion of implantable subdermal contraceptive (Acute 03/08/15) Nicotine dependence (Chronic) 8 cigs/day Cannabis dependence (Chronic) Daily Stress incontinence (Acute) Ovarian cyst (Acute) Dysmenorrhea (Acute) Abnormal MRI, thoracic spine (Acute) [facility] [place] [facility] [place]surg pending Menorrhagia (Acute) IBS (irritable bowel syndrome) (Chronic) Nausea (Acute) Change in bowel habits (Acute) Medical History Anxiety and depression Escitalopram 10mg works well Hypothyroid Cognitive developmental delay [facility] Development Program Guardian (2019) Maryam Chen (see chart note 01/03/2019) Guardian terminated 03/31/[address]. ADD (attention deficit disorder) Outgrew when became parent Surgical History Hx of bilateral salpingectomy (~92) History of wisdom tooth extraction Family History Mother Depression Asthma Father Diabetes Asthma Brother Depression Asthma Grandfather No problems noted. Grandfather No problems noted. Grandmother No problems noted. Grandmother No problems noted. Daughter No problems noted. Social History Smoking/Tobacco Use Status: Current every day Tobacco Type: cigarettes Smoking packs per day: 0.5 Smoking cigarettes per day: 10.0 Quit status: not considering quitting Second Hand Exposure: Yes Smoking risk assessment performed?: Yes Alcohol Intake: never Drug use: Daily Substance use type: marijuana Adopted: No Caregiver/Support person: No Foster care: No Household members: significant other Housing: house Number of Children: 2 Communication Needs: Corrective Lenses Do you need help understanding health information?: Never Pets and animals: Yes Pets and animals: cat(s) and dog(s) Sexually active: No Do you think of yourself as: straight/heterosexual Current gender identity: female What is your relationship status?: never How often do you talk on the phone with friends or family?: never How often do you get together with friends or relatives?: decline to answer How often do you attend evangelical or orthodox services?: decline to answer Do you belong to any clubs or organized social groups?: no Panel score (0-1 are the most socially isolated patients): 0 What type of physical activity do you participate in: walking Duration: 30-45 minutes/day Frequency: daily Katelyn/Congregational: No preference Special katelyn needs: No Seatbelt use: always Drive intox or ride w/intox driver license reviewing officer: No Do you feel safe at home: Yes Do you feel safe in your relationship?: Yes History History 5 Para 2 Hx # Term Pregnancies 1 Multiple births 0 Hx # Pregnancies 0 Ectopic pregnancies 0 AB induced 0 Hx Number of Living Children 1 AB spontaneous 4 Past Pregnancies Del. Date GA/Weeks # Preg Succ Route Wgt Sex Labor Lgth Anesth esia Location [facility] 03/05/15 39 vaginal 3005.049 g Female 10 hrs regional [facility]
[2024-01-09] MEDS: Metoclopramide 10 MG/2 ML VIAL IVP (04:26)
[2024-01-09] MEDS: Ketorolac 30 MG/ML VIAL IVP (04:26)
[2024-01-09] MEDS: DEXTROSE 5%-LACTATED RINGERS 1,000 ML 250 ML IV (04:27)
--- NOTE | 2024-01-09 05:17 | W.EDPROG ---
Date of service: 01/09/24 Time of Service: 05:27 Medical Decision Making Quality:SDOH Health Related Social Needs: No Data to Display Discharge Plan Disposition Patient Disposition: Home Condition: Improving Discharge Details Clinical Impression: Migraine Primary Care Provider: Aurelia Huggins ED Provider: Yusef Chery Home Meds and New Rx's Prescriptions: No Action ondansetron 4 mg tablet,disintegrating 4 mg PO Q8H Qty: 7 0RF albuterol sulfate [Ventolin HFA] 90 mcg/actuation HFA aerosol inhaler 1 - 2 puff IH Q4H PRN (Reason: shortness of breath or wheezing) Qty: 8 1RF Rx Instructions: PLEASE NO SUBSTITUTIONS; PROAIR INEFFECTIVE fexofenadine 180 mg tablet 180 mg PO DAILY Qty: 90 3RF Rx Instructions: Allergies levothyroxine 75 mcg tablet 75 mcg PO DAILY Qty: 90 3RF esomeprazole magnesium [Nexium] 40 mg capsule,delayed release(DR/EC) 40 mg PO DAILY Qty: 90 3RF Rx Instructions: Heartburn gabapentin 100 mg capsule 100 mg PO TID Qty: 270 3RF Rx Instructions: For severe back/hip pain daily PRN. Ok to subs for tabs. escitalopram oxalate [Lexapro] 10 mg tablet 10 mg PO DAILY Qty: 90 3RF Rx Instructions: Restarting for anxiety 05/10/2020 meclizine 25 mg tablet 25 mg PO TID PRN (Reason: dizziness) Qty: 15 0RF Discharge Instructions Instructions: Migraine in adults Additional Instructions: Follow up with your neurologist for re-evaluation and further ling term management of your chronic headache disease. You can always return to the ER for any new concerns or sudden changes in your health which you feel requires emergency medical attention. Discharge Data Discharge Physician: Yusef Chery
--- NOTE | 2024-01-09 05:23 | ED.GENADUL_ITS ---
Discharge Plan Disposition Patient Disposition: Home Condition: Improving Discharge Details Clinical Impression: Migraine Primary Care Provider: Aurelia Huggins ED Provider: Yusef Chery Home Meds and New Rx's Prescriptions: No Action ondansetron 4 mg tablet,disintegrating 4 mg PO Q8H Qty: 7 0RF albuterol sulfate [Ventolin HFA] 90 mcg/actuation HFA aerosol inhaler 1 - 2 puff IH Q4H PRN (Reason: shortness of breath or wheezing) Qty: 8 1RF Rx Instructions: PLEASE NO SUBSTITUTIONS; PROAIR INEFFECTIVE fexofenadine 180 mg tablet 180 mg PO DAILY Qty: 90 3RF Rx Instructions: Allergies levothyroxine 75 mcg tablet 75 mcg PO DAILY Qty: 90 3RF esomeprazole magnesium [Nexium] 40 mg capsule,delayed release(DR/EC) 40 mg PO DAILY Qty: 90 3RF Rx Instructions: Heartburn gabapentin 100 mg capsule 100 mg PO TID Qty: 270 3RF Rx Instructions: For severe back/hip pain daily PRN. Ok to subs for tabs. escitalopram oxalate [Lexapro] 10 mg tablet 10 mg PO DAILY Qty: 90 3RF Rx Instructions: Restarting for anxiety 05/10/2020 meclizine 25 mg tablet 25 mg PO TID PRN (Reason: dizziness) Qty: 15 0RF Discharge Instructions Instructions: Migraine in adults Additional Instructions: Follow up with your neurologist for re-evaluation and further ling term management of your chronic headache disease. You can always return to the ER for any new concerns or sudden changes in your health which you feel requires emergency medical attention. Discharge Data Discharge Physician: Yusef Chery [facility] General Date/Time Provider Initiated Documentation: 01/09/24 04:11 . HPI Narrative: The patient is a 33-year-old female, with a past medical history significant for chronic headache disease which is poorly followed, who presents to the emergency department this evening complaining of a migraine headache which he is on the right side of her head with an associated right orbital pain. The patient describes nausea and anorexia without vomiting throughout the course the day today. The patient did not have any fever or chills at home. The patient denies any symptoms of upper respiratory tract symptoms. The patient is not currently taking any of her routine medications as she has not filled the recent. The patient began having her headache yesterday morning and it persisted throughout the course of the day despite taking 2 g of Tylenol shortly before coming to the emergency room for her symptoms. Related Data Home Medications ?Medication ?Instructions ?Recorded ?Confirmed Ventolin HFA 90 mcg/actuation 1 - 2 puff inhalation Q4H PRN 11/09/22 01/09/24 aerosol inhaler (albuterol sulfate) shortness of breath or wheezing #8 grams fexofenadine 180 mg tablet 180 mg PO DAILY #90 tabs 11/28/22 01/09/24 levothyroxine 75 mcg tablet 75 mcg PO DAILY #90 tabs 02/11/23 01/09/24 meclizine 25 mg tablet 25 mg PO TID PRN dizziness #15 tabs 03/14/23 01/09/24 ondansetron 4 mg disintegrating 4 mg PO Q8H #7 tabs 05/01/23 01/09/24 tablet esomeprazole magnesium 40 mg 40 mg PO DAILY #90 caps 09/17/23 01/09/24 capsule,delayed release (Nexium) gabapentin 100 mg capsule 100 mg PO TID #270 caps 09/17/23 01/09/24 escitalopram oxalate 10 mg tablet 10 mg PO DAILY #90 tabs 09/25/23 01/09/24 (Lexapro) Previous Rx's ?Medication ?Instructions ?Recorded Ventolin HFA 90 mcg/actuation 1 - 2 puff inhalation Q4H PRN 11/09/22 aerosol inhaler (albuterol sulfate) shortness of breath or wheezing #8 grams fexofenadine 180 mg tablet 180 mg PO DAILY #90 tabs 11/28/22 levothyroxine 75 mcg tablet 75 mcg PO DAILY #90 tabs 02/11/23 meclizine 25 mg tablet 25 mg PO TID PRN dizziness #15 tabs 03/14/23 ondansetron 4 mg disintegrating 4 mg PO Q8H #7 tabs 05/01/23 tablet esomeprazole magnesium 40 mg 40 mg PO DAILY #90 caps 09/17/23 capsule,delayed release (Nexium) gabapentin 100 mg capsule 100 mg PO TID #270 caps 09/17/23 escitalopram oxalate 10 mg tablet 10 mg PO DAILY #90 tabs 09/25/23 (Lexapro) Allergies Allergy/AdvReac Type Severity Reaction Status Date / Time shellfish derived Allergy Severe Throat Verified 01/09/24 04:06 closes up latex Allergy Intermediate Skin Rash Verified 01/09/24 04:06 Penicillins Allergy Intermediate URTICARIA, Verified 01/09/24 04:06 ROOM SPINS amoxicillin trihydrate (From Allergy Unknown unknown Verified 01/09/24 04:06 Augmentin) metronidazole (From Flagyl) Allergy Unknown HIVES- RED Verified 01/09/24 04:06 BLOTCHES sumatriptan succinate (From AdvReac Severe chest pain Verified 01/09/24 04:06 Imitrex) tuna fish Allergy Unknown throat Uncoded 01/09/24 04:06 closes up B-2 AdvReac Skin Rash Uncoded 01/09/24 04:06 General Stated Complaint: Headache HUY: 3 Exam Const General: cooperative and healthy appearing HENMT Face and sinus: normal facial exam, sinuses nontender and dry mucous membranes Eyes Pupils: PERRL and dilated bilaterally EOM: EOM intact bilaterally Neck Neck: normal visual inspection, full ROM and supple Resp Effort & Inspection: normal respiratory effort and able to speak in complete sentences Cardio Pulses: normal peripheral pulses Neuro Cranial Nerves: CN's II-XI intact bilaterally Cognition: normal cognition Speech: speech normal Gait: normal gait Motor: muscle tone normal throughout and strength 5/5 throughout Sensory Exam: no sensory deficits noted Course Vital Signs Vital signs: Vital Signs Pulse 85 01/09/24 04:01 Respiratory Rate 18 01/09/24 04:01 Blood Pressure 139/96 H 01/09/24 04:01 Pulse Oximetry 98 01/09/24 04:01 Temperature 36.1 C L 01/09/24 04:05 Temperature Source Temporal Artery Scan 01/09/24 04:05 Pulse 85 01/09/24 04:01 Respiratory Rate 18 01/09/24 04:01 Respiratory Effort Normal 01/09/24 04:04 Blood Pressure 139/96 H 01/09/24 04:01 Blood Pressure Position Sitting 01/09/24 04:01 Pulse Oximetry 98 01/09/24 04:01 Oxygen Delivery Method Room Air 01/09/24 04:01 Oxygen Flow Rate 0 01/09/24 04:01 Medical Decision Making The patient was seen and examined. She was given IV Toradol and IV Reglan here in the emergency room with some IV dextrose and lactated Ringer's. The combination of these medications alleviate the patient's headache and left her without nausea and without pain after approximately 45 minutes. The patient request to be discharged home at this time to get some sleep. I have encouraged her to continue to follow-up with her regular neurologist for ongoing management. Quality:SDWV Health Related Social Needs: No Data to Display PFSH All Active Problems (Updated 01/09/24 @ 04:28 by Yusef Chery MD) Sterilization consult (Acute) Asthma, chronic (Chronic) Thyroid disorder (Acute) At risk for sleep apnea (Acute) Migraine (Chronic) [facility] Allergic rhinitis (Acute) Posttraumatic stress disorder (Chronic 08/18/11) GERD (gastroesophageal reflux disease) (Chronic) Failed Omeprazole, Failed Lansoprazole, Failed Pepcid Insertion of implantable subdermal contraceptive (Acute 03/08/15) Nicotine dependence (Chronic) 8 cigs/day Cannabis dependence (Chronic) Daily Stress incontinence (Acute) Ovarian cyst (Acute) Dysmenorrhea (Acute) Abnormal MRI, thoracic spine (Acute[place] [facility] [place] [facility] [place] Menorrhagia (Acute) IBS (irritable bowel syndrome) (Chronic) Nausea (Acute) Change in bowel habits (Acute) Medical History Anxiety and depression Escitalopram 10mg works well Hypothyroid Cognitive developmental delay [facility] Development [facility] Guardian (2019) Maryam Chen (see chart note 01/03/2019) Guardian terminated 03/31/[address]. ADD (attention deficit disorder) Outgrew when became parent Surgical History Hx of bilateral salpingectomy (~92) History of wisdom tooth extraction Family History Mother Depression Asthma Father Diabetes Asthma Brother Depression Asthma Grandfather No problems noted. Grandfather No problems noted. Grandmother No problems noted. Grandmother No problems noted. Daughter No problems noted. Social History Smoking/Tobacco Use Status: Current every day Tobacco Type: cigarettes Smoking packs per day: 0.5 Smoking cigarettes per day: 10.0 Quit status: not considering quitting Second Hand Exposure: Yes Smoking risk assessment performed?: Yes Alcohol Intake: never Drug use: Daily Substance use type: marijuana Adopted: No Caregiver/Support person: No Foster care: No Household members: significant other Housing: house Number of Children: 2 Communication Needs: Corrective Lenses Do you need help understanding health information?: Never Pets and animals: Yes Pets and animals: cat(s) and dog(s) Sexually active: No Do you think of yourself as: straight/heterosexual Current gender identity: female What is your relationship status?: never How often do you talk on the phone with friends or family?: never How often do you get together with friends or relatives?: decline to answer How often do you attend religion or worship services?: decline to answer Do you belong to any clubs or organized social groups?: no Panel score (0-1 are the most socially isolated patients): 0 What type of physical activity do you participate in: walking Duration: 30-45 minutes/day Frequency: daily Katelyn/Voodoo: No preference Special katelyn needs: No Seatbelt use: always Drive intox or ride w/intox ups driver: No Do you feel safe at home: Yes Do you feel safe in your relationship?: Yes History History 5 Para 2 Hx # Term Pregnancies 1 Multiple births 0 Hx # Pregnancies 0 Ectopic pregnancies 0 AB induced 0 Hx Number of Living Children 1 AB spontaneous 4 Past Pregnancies Del. Date GA/Weeks # Preg Succ Route Wgt Sex Labor Lgth Anesth esia Location [facility] 03/05/15 39 vaginal 3005.049 g Female 10 hrs regional [facility]
== END 2024-01-09 05:21 | disposition home or self-care (01) ==
PROVIDERS: Emergency Provider Emergency Medicine Emergency Medical Services; PCP Nurse Practitioner Family
DX: G43.909 Migraine, unspecified, not intractable, without status migrainosus (principal); F17.210 Nicotine dependence, cigarettes, uncomplicated
CPT/HCPCS: 00123; 96374; 96375; 99284; 99283; J1885; J2765

== ENCOUNTER 2024-02-12 00:52 | Emergency (ER) | payer MEDICAID, SELFPAY ==
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
[2024-02-12 01:00] VITALS: BP 138/102; PULSE 73; RESP 16; TEMP 37.2; O2SAT 100
--- NOTE | 2024-02-12 01:26 | NUR.NOTE ---
Visualized and Verified CC RN cut Morphine IR Tabs in half and place them in bottle to go, FPJ
[2024-02-12] MEDS: MORPHine IR 15 MG TAB, 4 TABS/BTL PO (01:29)
== END 2024-02-12 01:32 | disposition home or self-care (01) ==
LOC: ER 01:27
PROVIDERS: Emergency Provider Emergency Medicine; PCP Nurse Practitioner Family
DX: K08.89 Other specified disorders of teeth and supporting structures (principal); F17.210 Nicotine dependence, cigarettes, uncomplicated; Z98.818 Other dental procedure status
CPT/HCPCS: 99283

== ENCOUNTER 2024-03-20 03:53 | Outpatient (CLI) | payer MEDICAID, SELFPAY ==
[2024-03-20 14:57] LABS: HGB 13.5 g/dL (11.2-15.7); MCH 32.5 pg (27.0-33.0); MCHC 32.9 % (32.0-36.0); MCV 99 fL (80-95); Platelet Count 436 10^3/uL (130-400); RBC 4.15 10^6/uL (3.93-5.22); RDW 13.5 % (11.7-14.6); RDW-SD 49.3 fL; WBC 9.09 10^3/uL (4.4-10.8)
[2024-03-20 16:08] LABS: Hemoglobin A1C 5.1 % (<5.7)
[2024-03-20 16:23] LABS: ALT 10 U/L (14-59); AST 17 U/L (15-37); Albumin 3.9 g/dL (3.4-5.0); Alkaline Phosphatase 62 U/L (46-116); Anion Gap 13.5 mmol/L (3-11); BUN 12 mg/dL (7-18); Bilirubin, Total 0.34 mg/dL (0.2-1.0); CO2 21.5 mmol/L (21.0-32.0); CREATININE 0.8 mg/dL (0.55-1.02); Calcium 9.2 mg/dL (8.5-10.1); Calculated LDL 124 mg/dL (<100); Chloride 109 mmol/L (98-107); Cholesterol 201 mg/dL (<200); Estimated GFR 100.96 (mL/min/1.73m2); Glucose 106 mg/dL (74-106); HDL Cholesterol 47 mg/dL (40-60); Potassium 4.2 mmol/L (3.5-5.1); Sodium 144 mmol/L (136-145); TSH (W/Ref FT4) 2.07 uIU/mL (0.36-3.74); Total Protein 7.8 g/dL (6.4-8.2); Triglyceride 151 mg/dL (<150)
== END 2024-03-20 03:54 | disposition home or self-care (01) ==
PROVIDERS: PCP Nurse Practitioner Family; Visit Provider Nurse Practitioner Family
DX: Z00.00 Encounter for general adult medical examination without abnormal findings (principal); K21.9 Gastro-esophageal reflux disease without esophagitis; J45.909 Unspecified asthma, uncomplicated; F41.9 Anxiety disorder, unspecified; F32.9 Major depressive disorder, single episode, unspecified; E03.9 Hypothyroidism, unspecified
CPT/HCPCS: 36415; 80053; 80061; 85027; 83036; 84443

== ENCOUNTER 2024-09-06 05:04 | Emergency (ER) | payer MEDICAID, SELFPAY ==
[2024-09-06 05:08] VITALS: BP 135/111; PULSE 73; RESP 16; TEMP 36.8; O2SAT 96
[2024-09-06 05:18] VITALS: BP 113/111; PULSE 71; TEMP 36.7; O2SAT 98
[2024-09-06] MEDS: diphenhydrAMINE 50 MG/ML VIAL 25 MG IVP (05:40)
[2024-09-06] MEDS: Prochlorperazine 10 MG/2 ML VIAL IVP (05:40)
[2024-09-06] MEDS: ACETAMINOPHEN 1,000 MG/100 ML BAG 400 MG IVPB (05:40)
[2024-09-06] MEDS: Ketorolac 15 MG/ML VIAL IVP (05:40)
[2024-09-06 05:45] VITALS: BP 112/80; PULSE 58; O2SAT 98
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
== END 2024-09-06 05:52 | disposition home or self-care (01) ==
LOC: ER 06:00
PROVIDERS: Emergency Provider Student in an Organized Health Care Education/Training Program; PCP Nurse Practitioner Family
DX: G43.909 Migraine, unspecified, not intractable, without status migrainosus (principal)
CPT/HCPCS: 99284; 99283; 96374; 96375; J0131; J0780; J1200; J1885

== ENCOUNTER 2024-10-17 19:18 | Outpatient (CLI) | payer MEDICAID, SELFPAY ==
[2024-10-17 15:17] LABS: HCT 35.9 % (36.0-46.0); HGB 12.1 g/dL (11.2-15.7); MCH 31.1 pg (27.0-33.0); MCHC 33.7 % (32.0-36.0); MCV 92 fL (80-95); MPV 10.6 fL (8.0-11.0); Platelet Count 338 10^3/uL (130-400); RBC 3.89 10^6/uL (3.93-5.22); RDW 12.5 % (11.7-14.6); RDW-SD 42.3 fL; WBC 6.05 10^3/uL (4.4-10.8)
[2024-10-17 16:40] LABS: ALT 13 U/L (14-59); AST 8 U/L (15-37); Albumin 3.8 g/dL (3.4-5.0); Alkaline Phosphatase 52 U/L (46-116); Anion Gap 11.9 mmol/L (3-11); BUN 11 mg/dL (7-18); Bilirubin, Total 0.2 mg/dL (0.2-1.0); CO2 22.1 mmol/L (21.0-32.0); Calcium 8.7 mg/dL (8.5-10.1); Chloride 106 mmol/L (98-107); Estimated GFR 68.47 (mL/min/1.73m2); Glucose 108 mg/dL (74-106); Potassium 3.6 mmol/L (3.5-5.1); Sodium 140 mmol/L (136-145); TSH (W/Ref FT4) 0.81 uIU/mL (0.36-3.74); Total Protein 7.0 g/dL (6.4-8.2)
== END 2024-10-17 19:19 | disposition home or self-care (01) ==
LOC: LBO 19:18
PROVIDERS: PCP Nurse Practitioner Family; Visit Provider Nurse Practitioner Family
DX: G43.719 Chronic migraine without aura, intractable, without status migrainosus (principal); E07.9 Disorder of thyroid, unspecified
CPT/HCPCS: 36415; 80053; 85027; 84443